=== PATIENT | female | born 1935 | race Hispanic/Latino ===

== ENCOUNTER 2020-07-24 06:38 | Emergency (ER) | payer OTHER ==
[2020-07-24] MEDS ORDERED: ONDANSETRON 4 MG/2 ML VIAL ONE (08:58)
[2020-07-24] MEDS ORDERED: NA CHLORIDE 0.9% 1,000 ML ONE (08:58)
[2020-07-24] MEDS ORDERED: MORPHINE 2 MG/ML SYR ONE ×2 (08:58→11:04)
--- NOTE | 2020-07-24 09:20 | RAD REPORT ---
EXAM DESCRIPTION: RAD - Chest Single View - 07/24/2020 9:00 am CLINICAL HISTORY: ABDOMINAL DISTENTION COMPARISON: Portable June 2014 TECHNIQUE: AP portable chest image was obtained 07/24/2020 9:00 am . FINDINGS: No focal consolidation or mass. Interstitial opacities are present with interstitial cha ngs slightly increased from comparison. Heart and vasculature are normal. No measurable pleural effus ion and no pneumothorax. No acute bony abnormality seen. No acute aortic findings suspected. IMPRESSION: No dense mass or consolidation. Interstitial markings are increased slightly and there is some minimal alveolar opacities present. No COVID exposure history indicated. Viral infiltrate or mild interstitial edema suspected.
[2020-07-24 09:22] LABS: Protime INR 1.14
[2020-07-24 09:23] LABS: Basophils % 0.4 % (0-1.3); Hematocrit 38.6 % (36.0-45.0); Lymphocytes % 8.5 % (15.3-44.8); MPV 9.7 fL (7.6-11.3); RBC Red Blood Cell Count 4.51 M/uL (3.86-4.86)
[2020-07-24 09:34] LABS: ALT/SGPT 13 U/L (12-78); AST/SGOT 13 U/L (15-37); Albumin 3.2 g/dL (3.4-5.0); Alkaline Phosphatase 127 U/L (45-117); BUN Blood Urea Nitrogen 15 mg/dL (7-18); Bicarbonate 28 mmol/L (21-32); Bilirubin Direct 0.2 mg/dL (0-0.2); Bilirubin Total 0.6 mg/dL (0.2-1.0); Glucose Level 177 mg/dL (74-106); Lipase 28 U/L (73-393); Magnesium 1.9 mg/dL (1.8-2.4); NT PRO-BNP 214 pg/mL (<450); Potassium 3.5 mmol/L (3.5-5.1); Protein, Total 7.6 g/dL (6.4-8.2); Sodium Level 141 mmol/L (136-145); Troponin (Emerg Dept Use Only) < 0.02 ng/mL (0.0-0.045)
[2020-07-24 09:50] LABS: Urine Blood 2+ (Negative); Urine Glucose Negative (Negative); Urine Protein 1+ (Negative)
[2020-07-24 09:58] LABS: Blood Morphology Comment NOT SEEN (NOT SEEN); Platelet Estimate ADEQ
--- NOTE | 2020-07-24 11:49 | RAD REPORT ---
EXAM DESCRIPTION: CT - Abdomen Pelvis W Contrast - 07/24/2020 11:29 am CLINICAL HISTORY: Abd pain;Abdominal distention COMPARISON: No comparisons TECHNIQUE: Biphasic, helical CT imaging of the abdomen and pelvis was performed following 100 ml non -ionic IV contrast. Oral contrast was given. All CT scans are performed using dose optimization technique as appropriate and may include automated exposure control or mA/KV adjustment according to patient size. FINDINGS: No suspicious findings in the lung bases. No focal liver lesion. Doppler evaluation shows no portal vein abnormality. Nodular liver capsule con tour seen. No splenomegaly or focal splenic finding. Pancreatic atrophy is present with no acute panc reatic process. Gallbladder and biliary tree are also without suspicious finding. Gallstones can be o ccult on CT imaging. Calcified splenic artery aneurysm present. Symmetric renal function is seen with no hydronephrosis or suspicious renal mass. No pyelonephritis o r acute parenchymal process. Urinary bladder is fully contracted around a Thomas catheter. No adrenal abnormalities. No gastric dilatation or wall thickening. Gastric outlet obstruction not suspected. Small bowel loops are not dilated. No direct or indirect evidence for appendicitis. Mild to moderate circumferential w all thickening of the colon present from cecum to the sigmoid colon which passes through the abdomina l wall as a left mid abdomen colostomy. The rectosigmoid Prado pouch shows contrast material presum ably from a far remote procedure. No free air or pneumatosis. No hernia, mass or bulky lymphadenopat hy. No suspicious bony findings. IMPRESSION: Mild to moderate colitis pattern with no free air, pneumatosis or emergent finding. Nodular contour to the liver could indicate cirrhosis or diffuse hepatic parenchymal disease. No foca l liver parenchymal finding. The left abdomen colostomy site shows the colitis pattern seen elsewhere in the colon. No emergent fi nding at this site.
--- NOTE | 2020-07-24 12:12 | ER ---
Nurse's Notes [facility] Name: Valerie Cantrell Age: 84 yrs Sex: Female : 1935 Arrival Date: 07/24/2020 Time: 06:41 Bed 15 Private MD: Diagnosis: Abdominal tenderness;Other and unspecified noninfective gastroenteritis and colitis;Colostomy status Presentation: 07/24 06:55 Chief complaint: EMS states: complaining of abdominal pain started last Saturday, has a rr5 colostomy which was placed last november. 06:55 Coronavirus screen: Client denies travel out of the [place] in the last 14 days. At this rr5 time, the client does not indicate any symptoms associated with coronavirus-19. Ebola Screen: Patient negative for fever greater than or equal to 101.5 degrees Fahrenheit, and additional compatible Ebola Virus Disease symptoms Patient denies exposure to infectious person. Patient denies travel to an Ebola-affected area in the 21 days before illness onset. Initial Sepsis Screen: Does the patient meet any 2 criteria? No. Patient's initial sepsis screen is negative. Does the patient have a suspected source of infection? No. Patient's initial sepsis screen is negative. Risk Assessment: Do you want to hurt yourself or someone else? Patient reports no desire to harm self or others. Onset of symptoms was July 22, 2020. 06:55 Method Of Arrival: EMS: [facility] rr5 06:55 Acuity: HAI 3 rr5 Historical: - Allergies: 07:00 No Known Allergies; rr5 - PMHx: 07:00 Thyroid problem; Hypertension; neuropathy; stroke; rr5 - PSHx: 07:00 Colostomy; rr5 - Immunization history:: Adult Immunizations up to date. - Social history:: Smoking status: unknown. - Family history:: not pertinent. Screenin:00 Abuse screen: Denies threats or abuse. Denies injuries from another. Nutritional rr5 screening: No deficits noted. Tuberculosis screening: No symptoms or risk factors identified. Fall Risk Secondary diagnosis (15 points) impaired mobility, Gait- Impaired (20 pts.). Total [place] Fall Scale indicates High Risk Score (45 or more points). Fall prevention measures have been instituted. Side Rails Up X 2 Placed Close to Nursing Station Frequent Obs/Assessments Occuring As available patient and family educated on Fall Prevention Program and Strategies. Assessment: 07:10 General: Appears in no apparent distress. Behavior is calm, cooperative, appropriate ll1 for age. Pain: Complains of pain in abdomen Quality of pain is described as aching, crampy. Neuro: No deficits noted. Cardiovascular: No deficits noted. Respiratory: No deficits noted. GI: Abdomen is flat, Colostomy site is clean and dry. Ostomy appliance is intact. Bowel sounds present X 4 quads. Abd is soft Abdomen is tender to palpation X 4 quads. Reports lower abdominal pain, upper abdominal pain, gaseousness, nausea, vomiting. : catheter present. 08:10 Reassessment: No changes from previously documented assessment. Patient and/or family ll1 updated on plan of care and expected duration. Pain level reassessed. 09:10 Reassessment: No changes from previously documented assessment. Patient and/or family ll1 updated on plan of care and expected duration. Pain level reassessed. Patient is alert, oriented x 3, equal unlabored respirations, skin warm/dry/pink. Patient states feeling better. 10:10 Reassessment: Patient appears in no apparent distress at this time. Patient and/or ca1 family updated on plan of care and expected duration. Pain level reassessed. Patient is alert, oriented x 3, equal unlabored respirations, skin warm/dry/pink. 10:53 Reassessment: Patient appears in no apparent distress at this time. Patient and/or ca1 family updated on plan of care and expected duration. Pain level reassessed. Patient is alert, oriented x 3, equal unlabored respirations, skin warm/dry/pink. Lab at bedside for Blood Culture draw. 12:01 Reassessment: Patient appears in no apparent distress at this time. Patient and/or ca1 family updated on plan of care and expected duration. Pain level reassessed. Patient is alert, oriented x 3, equal unlabored respirations, skin warm/dry/pink. 12:12 Reassessment: Discharge pending completion of Antibiotics. ca1 12:49 Reassessment: Patient appears in no apparent distress at this time. Patient is alert, ca1 oriented x 3, equal unlabored respirations, skin warm/dry/pink. 13:55 Reassessment: Patient appears in no apparent distress at this time. Patient is alert, ca1 oriented x 3, equal unlabored respirations, skin warm/dry/pink. Awaiting transport. 14:34 Reassessment: Patient appears in no apparent distress at this time. Patient is alert, ca1 oriented x 3, equal unlabored respirations, skin warm/dry/pink. Patient states feeling better. Vital Signs: 06:55 BP 152 / 115; Pulse 88; Resp 19; Temp 98.4; Pulse Ox 96% ; Weight 72.57 kg; Height 5 rr5 ft. 5 in. (165.10 cm); Pain 8/10; 10:01 BP 124 / 67; Pulse 79; Resp 17; Pulse Ox 97% on R/A; ll1 10:30 BP 100 / 86; Pulse 75; Resp 16 S; Pulse Ox 95% on R/A; ca1 10:52 Pulse 79; Pulse Ox 96% on R/A; mb4 11:05 BP 126 / 66; Pulse 75; Resp 16 S; Pulse Ox 97% on R/A; ca1 12:00 BP 100 / 51; Pulse 78; Resp 18 S; Pulse Ox 98% on R/A; ca1 13:00 BP 90 / 70; Pulse 82; Resp 13 S; Pulse Ox 98% on R/A; ca1 14:00 BP 109 / 60; Pulse 71; Resp 15 S; Pulse Ox 95% on R/A; ca1 06:55 Body Mass Index 26.63 (72.57 kg, 165.10 cm) rr5 ED Course: 06:41 Patient arrived in ED. iw 06:44 James Jo MD is Attending Physician. pablito 06:59 Triage completed. rr5 07:00 Arm band placed on right wrist. rr5 07:00 Patient has correct armband on for positive identification. Bed in low position. Call ll1 light in reach. Side rails up X 1. Pulse ox on. NIBP on. 07:18 Bassam Connor, KELSI is Primary Nurse. ll1 08:52 EKG done, by ED staff, reviewed by James Jo MD. mb4 09:00 XRAY Chest (1 view) In Process Unspecified. EDMS 09:00 Inserted saline lock: 22 gauge in right antecubital area, using aseptic technique. ll1 Blood collected. 10:34 COVID swab sent to lab. ca1 11:07 First set of blood cultures drawn by lab staff. ca1 11:29 CT Abd/Pelvis - PO and IV Contrast In Process Unspecified. EDMS 12:00 Second set of blood cultures drawn by lab staff. ca1 12:01 Primary Nurse role handed off by Bassam Connor, KELSI ca1 12:01 Alexus Diamond, KELSI is Primary Nurse. ca1 12:11 Geoff Lundberg MD is Referral Physician. pablito 12:35 Stool Culture Sent. ca1 13:50 Stool Culture Sent. ca1 14:34 No provider procedures requiring assistance completed. IV discontinued, intact, ca1 bleeding controlled, No redness/swelling at site. Pressure dressing applied. Administered Medications: 09:31 Drug: NS 0.9% 1000 ml Route: IV; Rate: 1 bolus; Site: right antecubital; ll1 11:00 Follow up: Response: No adverse reaction; IV Status: Completed infusion; IV Intake: ca1 1000ml 09:31 Drug: Zofran (Ondansetron) 4 mg Route: IVP; Site: right antecubital; ll1 10:30 Follow up: Response: No adverse reaction; Nausea is decreased ca1 09:31 Drug: morphine 2 mg Route: IVP; Site: right antecubital; ll1 10:49 Drug: morphine 2 mg {Note: rass 1.} Route: IVP; Site: right antecubital; ca1 12:00 Follow up: Response: No adverse reaction; Pain is decreased; RASS: Alert and Calm (0) ca1 13:12 Follow up: Response: No adverse reaction; Pain is decreased; RASS: Alert and Calm (0) ca1 12:08 Drug: levofloxacin 500 mg Volume: 100 ml; Route: IVPB; Infused Over: 60 mins; Site: ca1 right antecubital; 13:10 Follow up: Response: No adverse reaction; IV Status: Completed infusion; IV Intake: ca1 100ml 13:11 Drug: Pepcid (famotidine) 20 mg Route: IVP; Site: right antecubital; ca1 13:49 Follow up: Response: No adverse reaction ca1 13:13 Drug: Flagyl (metroNIDAZOLE) 500 mg Volume: 100 ml; Route: IVPB; Rate: 200 ml/hr; ca1 Infused Over: 30 mins; Site: right antecubital; 13:49 Follow up: Response: No adverse reaction; IV Status: Completed infusion; IV Intake: ca1 100ml Intake: 11:00 IV: 1000ml; Total: 1000ml. ca1 13:10 IV: 100ml; Total: 1100ml. ca1 13:49 IV: 100ml; Total: 1200ml. ca1 Outcome: 12:12 Discharge ordered by . pablito 14:34 Discharged to home via ambulance. ca1 14:34 Condition: stable 14:34 Discharge instructions given to patient, EMS, Instructed on discharge instructions, follow up and referral plans. medication usage, Demonstrated understanding of instructions, follow-up care, medications, Prescriptions given X x5 14:35 Patient left the ED. ca1 Addendum: 07/28/2020 09:06 Addendum: Culture Results: Positive urine culture. No further action required. Bacteria s s sensitive to prescribed antibiotic. Signatures: Dispatcher [employer] EDMS James Jo MD MD cha Williams, Irene, RN RN iw Berenice Garay RN RN ss Maria Victoria Vital mb4 Win Daily RN RN rr5 Alexus Diamond RN RN ca1 Bassam Connor RN RN ll1 Corrections: (The following items were deleted from the chart) 07/24 10:28 10:27 General: Appears in no apparent distress. Behavior is calm, cooperative, ll1 appropriate for age, ll1 10:28 10:27 Pain: Complains of pain in abdomen Quality of pain is described as aching, ll1 crampy, ll1 10:28 10:27 Neuro: No deficits noted. ll1 ll1 10:28 10:27 Cardiovascular: No deficits noted. ll1 ll1 10:28 10:27 Respiratory: No deficits noted. ll1 ll1 10:28 10:27 GI: Abdomen is flat, Colostomy site is clean and dry. Ostomy appliance is intact. ll1 Bowel sounds present X 4 quads. Abd is soft Abdomen is tender to palpation X 4 quads. Reports lower abdominal pain, upper abdominal pain, gaseousness, nausea, vomiting, ll1 10:28 10:27 : catheter present. ll1 ll1 10:56 10:53 BP 100 / 86; Pulse 75bpm; Resp 16bpm; Spontaneous; Pulse Ox 95% RA; ca1 ca1 14:07 13:49 Response: No adverse reaction ca1 ca1
--- NOTE | 2020-07-24 12:13 | EDPHYS ---
Physician Documentation [facility] Name: Valerie Cantrell Age: 84 yrs Sex: Female : 1935 Arrival Date: 07/24/2020 Time: 06:41 Bed 15 Private MD: ED Physician James Jo HPI: 07/24 10:25 This 84 yrs old Female presents to ER via EMS with complaints of Abdominal pablito Pain. 10:25 The patient presents with abdominal pain in the upper abdomen, in the lower abdomen, pablito abdominal distention in the upper abdomen, in the lower abdomen. Onset: The symptoms/episode began/occurred 2 day(s) ago. The symptoms do not radiate. Associated signs and symptoms: Pertinent positives: nausea. The symptoms are described as constant, crampy. Modifying factors: The symptoms are alleviated by nothing, the symptoms are aggravated by nothing. Severity of pain: At its worst the pain was mild in the emergency department the pain is unchanged. The patient has not experienced similar symptoms in the past. Historical: - Allergies: 07:00 No Known Allergies; rr5 - PMHx: 07:00 Thyroid problem; Hypertension; neuropathy; stroke; rr5 - PSHx: 07:00 Colostomy; rr5 - Immunization history:: Adult Immunizations up to date. - Social history:: Smoking status: unknown. - Family history:: not pertinent. ROS: 10:25 Constitutional: Negative for fever, chills, and weight loss, Eyes: Negative for injury, pablito pain, redness, and discharge, ENT: Negative for injury, pain, and discharge, Neck: Negative for injury, pain, and swelling, Cardiovascular: Negative for chest pain, palpitations, and edema, Respiratory: Negative for shortness of breath, cough, wheezing, and pleuritic chest pain, Back: Negative for injury and pain, : Negative for injury, bleeding, discharge, and swelling, MS/Extremity: Negative for injury and deformity, Skin: Negative for injury, rash, and discoloration, Neuro: Negative for headache, weakness, numbness, tingling, and seizure, Psych: Negative for depression, anxiety, suicide ideation, homicidal ideation, and hallucinations, Allergy/Immunology: Negative for hives, rash, and allergies, Endocrine: Negative for neck swelling, polydipsia, polyuria, polyphagia, and marked weight changes, Hematologic/Lymphatic: Negative for swollen nodes, abnormal bleeding, and unusual bruising. 10:25 Abdomen/GI: Positive for abdominal pain, of the right upper quadrant, left upper quadrant, right lower quadrant and left lower quadrant, COLOSTOMY LOOKS CLEAN AND WELL KEPT. Exam: 10:28 Constitutional: This is a well developed, well nourished patient who is awake, alert, pablito and in no acute distress. Head/Face: Normocephalic, atraumatic. Eyes: Pupils equal round and reactive to light, extra-ocular motions intact. Lids and lashes normal. Conjunctiva and sclera are non-icteric and not injected. Cornea within normal limits. Periorbital areas with no swelling, redness, or edema. ENT: Nares patent. No nasal discharge, no septal abnormalities noted. Tympanic membranes are normal and external auditory canals are clear. Oropharynx with no redness, swelling, or masses, exudates, or evidence of obstruction, uvula midline. Mucous membranes moist. Neck: Trachea midline, no thyromegaly or masses palpated, and no cervical lymphadenopathy. Supple, full range of motion without nuchal rigidity, or vertebral point tenderness. No Meningismus. Chest/axilla: Normal chest wall appearance and motion. Nontender with no deformity. No lesions are appreciated. Cardiovascular: Regular rate and rhythm with a normal S1 and S2. No gallops, murmurs, or rubs. Normal PMI, no JVD. No pulse deficits. Respiratory: Lungs have equal breath sounds bilaterally, clear to auscultation and percussion. No rales, rhonchi or wheezes noted. No increased work of breathing, no retractions or nasal flaring. Back: No spinal tenderness. No costovertebral tenderness. Full range of motion. Female : Normal external genitalia. Skin: Warm, dry with normal turgor. Normal color with no rashes, no lesions, and no evidence of cellulitis. MS/ Extremity: Pulses equal, no cyanosis. Neurovascular intact. Full, normal range of motion. Neuro: Awake and alert, GCS 15, oriented to person, place, time, and situation. Cranial nerves II-XII grossly intact. Motor strength 5/5 in all extremities. Sensory grossly intact. Cerebellar exam normal. Normal gait. Psych: Awake, alert, with orientation to person, place and time. Behavior, mood, and affect are within normal limits. 10:28 Abdomen/GI: Inspection: distension, that is mild, Bowel sounds: normal, Palpation: mild abdominal tenderness, in all quadrants, Liver: no appreciated palpable abnormalities, Hernia: not appreciated. 10:31 ECG was reviewed by the Attending Physician. [facility] Vital Signs: 06:55 BP 152 / 115; Pulse 88; Resp 19; Temp 98.4; Pulse Ox 96% ; Weight 72.57 kg; Height 5 rr5 ft. 5 in. (165.10 cm); Pain 8/10; 10:01 BP 124 / 67; Pulse 79; Resp 17; Pulse Ox 97% on R/A; ll1 10:30 BP 100 / 86; Pulse 75; Resp 16 S; Pulse Ox 95% on R/A; ca1 10:52 Pulse 79; Pulse Ox 96% on R/A; mb4 11:05 BP 126 / 66; Pulse 75; Resp 16 S; Pulse Ox 97% on R/A; ca1 12:00 BP 100 / 51; Pulse 78; Resp 18 S; Pulse Ox 98% on R/A; ca1 13:00 BP 90 / 70; Pulse 82; Resp 13 S; Pulse Ox 98% on R/A; ca1 14:00 BP 109 / 60; Pulse 71; Resp 15 S; Pulse Ox 95% on R/A; ca1 06:55 Body Mass Index 26.63 (72.57 kg, 165.10 cm) rr5 MDM: 06:45 Patient medically screened. [facility] 10:28 Differential diagnosis: bowel obstruction, cholecystitis, Cholelithiasis, gastritis, pablito gastroesophageal reflux disease, Mesenteric ischemia or infarction, non-specific abd pain, pancreatitis, Peptic Ulcer Disease, Peritonitis, urinary tract infection. Data reviewed: vital signs, nurses notes, EMS record, lab test result(s), EKG, radiologic studies, CT scan, plain films. Data interpreted: panel monitor: rate is 79 beats/min, rhythm is regular, Pulse oximetry: on room air is 97 %. Test interpretation: by ED physician or midlevel provider: ECG, plain radiologic studies. Counseling: I had a detailed discussion with the patient and/or guardian regarding: the historical points, exam findings, and any diagnostic results supporting the discharge/admit diagnosis, lab results, radiology results. 07/24 08:26 Order name: Basic Metabolic Panel; Complete Time: 10:11 [facility] 07/24 08:26 Order name: CBC with Diff; Complete Time: 10:11 [facility] 07/24 08:26 Order name: LFT's; Complete Time: 10: [facility] 07/24 08:26 Order name: Magnesium; Complete Time: 10: [facility] 07/24 08:26 Order name: NT PRO-BNP; Complete Time: 10:11 [facility] 07/24 08:26 Order name: PT-INR; Complete Time: 10: [facility] 07/24 08:26 Order name: Troponin (emerg Dept Use Only); Complete Time: 10: [facility] 07/24 08:26 Order name: Lipase; Complete Time: 10: [facility] 07/24 08:26 Order name: Urine Culture [facility] 07/24 09:49 Order name: Urine Dipstick-Ancillary; Complete Time: 10: [facility] 07/24 09:58 Order name: Manual Differential; Complete Time: 10: [facility] 07/24 10:15 Order name: Blood Culture Adult (2) [facility] 07/24 12:07 Order name: SARS-COV-2 RT PCR [facility] 07/24 06:45 Order name: Misc. Order: replace colostomy; Complete Time: 07:19 [facility] 07/24 08:26 Order name: XRAY Chest (1 view); Complete Time: 10:11 [facility] 07/24 08:26 Order name: EKG; Complete Time: 08:27 [facility] 07/24 08:26 Order name: Cardiac monitoring; Complete Time: 09:59 [facility] 07/24 08:26 Order name: EKG - Nurse/Tech; Complete Time: 09:59 [facility] 07/24 08:26 Order name: IV Saline Lock; Complete Time: 08:35 [facility] 07/24 08:26 Order name: Labs collected and sent; Complete Time: 08:35 [facility] 07/24 08:26 Order name: O2 Per Protocol; Complete Time: 08:35 [facility] 07/24 08:26 Order name: CT Abd/Pelvis - PO and IV Contrast; Complete Time: 12:03 [facility] 07/24 12:13 Order name: Stool Culture 07/24 08:26 Order name: O2 Sat Monitoring; Complete Time: 08:34 [facility] 07/24 08:26 Order name: Urine Dipstick-Ancillary (obtain specimen); Complete Time: 09:59 pablito EC:31 Rate is 75 beats/min. Rhythm is regular. QRS [place] is Normal. IN interval is normal. QRS pablito interval is normal. QT interval is normal. No Q waves. T waves are Normal. No ST changes noted. Clinical impression: NSR w/ Non-specific ST/T Changes and No evidence of ischemia. Interpreted by me. Reviewed by me. Administered Medications: :31 Drug: NS 0.9% 1000 ml Route: IV; Rate: 1 bolus; Site: right antecubital; ll1 11:00 Follow up: Response: No adverse reaction; IV Status: Completed infusion; IV Intake: ca1 1000ml 09:31 Drug: Zofran (Ondansetron) 4 mg Route: IVP; Site: right antecubital; ll1 10:30 Follow up: Response: No adverse reaction; Nausea is decreased ca1 09:31 Drug: morphine 2 mg Route: IVP; Site: right antecubital; ll1 10:49 Drug: morphine 2 mg {Note: rass 1.} Route: IVP; Site: right antecubital; ca1 12:00 Follow up: Response: No adverse reaction; Pain is decreased; RASS: Alert and Calm (0) ca1 13:12 Follow up: Response: No adverse reaction; Pain is decreased; RASS: Alert and Calm (0) ca1 12:08 Drug: levofloxacin 500 mg Volume: 100 ml; Route: IVPB; Infused Over: 60 mins; Site: ca1 right antecubital; 13:10 Follow up: Response: No adverse reaction; IV Status: Completed infusion; IV Intake: ca1 100ml 13:11 Drug: Pepcid (famotidine) 20 mg Route: IVP; Site: right antecubital; ca1 13:49 Follow up: Response: No adverse reaction ca1 13:13 Drug: Flagyl (metroNIDAZOLE) 500 mg Volume: 100 ml; Route: IVPB; Rate: 200 ml/hr; ca1 Infused Over: 30 mins; Site: right antecubital; 13:49 Follow up: Response: No adverse reaction; IV Status: Completed infusion; IV Intake: ca1 100ml Disposition: 07/24/20 12:12 Discharged to Home. Impression: Abdominal tenderness, Other and unspecified noninfective gastroenteritis and colitis, Colostomy status. - Condition is Stable. - Discharge Instructions: Abdominal Pain, Adult, Abdominal Pain, Adult, [id number], Colostomy, Adult, Care After, Colitis. - Prescriptions for Bentyl 20 mg Oral Tablet - take 1 tablet by ORAL route every 6 hours As needed; 20 tablet. Flagyl 500 mg Oral Tablet - take 1 tablet by ORAL route every 8 hours for 7 days; 21 tablet. Levaquin 250 mg Oral Tablet - take 1 tablet by ORAL route once daily for 7 days; 7 tablet. Pepcid 20 mg Oral Tablet - take 1 tablet by ORAL route every 12 hours for 10 days; 20 tablet. Zofran 4 mg Oral Tablet - take 1 tablet by ORAL route every 12 hours As needed; 14 tablet. - Medication Reconciliation Form, Thank You Letter, Antibiotic Education, Prescription Opioid Use, SBAR form form. - Follow up: Private Physician; When: 2 - 3 days; Reason: Recheck today's complaints, Continuance of care, Re-evaluation by your physician. Follow up: Geoff Lundberg MD; When: 2 - 3 days; Reason: Recheck today's complaints, Re-evaluation by your physician. - Problem is new. - Symptoms have improved. Signatures: Dispatcher [employer] [facility] James Jo MD MD cha Roque, Raymond RN RN rr5 Alexus Diamond RN RN ca1 Bassam Connor RN RN ll1 Corrections: (The following items were deleted from the chart) 11:20 10:15 CORONAVIRUS+ ordered. [facility] 14:35 12:12 07/24/2020 12:12 Discharged to Home. Impression: Abdominal tenderness; Other and ca1 unspecified noninfective gastroenteritis and colitis; Colostomy status. Condition is Stable. Forms are Medication Reconciliation Form, Thank You Letter, Antibiotic Education, Prescription Opioid Use. Follow up: Private Physician; When: 2 - 3 days; Reason: Recheck today's complaints, Continuance of care, Re-evaluation by your physician. Follow up: Geoff Lundberg; When: 2 - 3 days; Reason: Recheck today's complaints, Re-evaluation by your physician. Problem is new. Symptoms have improved. pablito
[2020-07-24] MEDS ORDERED: Levofloxacin500mg IV 500 MG/100 ML BAG IV ONE (12:22)
[2020-07-24] MEDS ORDERED: FAMOTIDINE 20 MG/2 ML VIAL IV ONE (12:32)
[2020-07-24] MEDS ORDERED: METRONIDAZOLE 500mg IVPB 500 MG/100 ML BAG IV ONE (12:32)
[2020-07-24 14:47] VITALS: TEMP 98.4
[2020-07-24 14:57] VITALS: BP 109/60; O2SAT 95
--- NOTE | 2020-07-27 12:07 | EKG ---
Test Date: 2020-07-24 Test Time: 08:49:06 Slope Runner: LAWRENCE MEASUREMENT RESULTS: Intervals: Rate: 75 NJ: 174 QRSD: 138 QT: 408 QTc: 455 [place]: P: 40 NJ: 174 QRS: 49 T: 2 INTERPRETIVE STATEMENTS: Normal sinus rhythm Right bundle branch block Possible Inferior infarct, age undetermined Abnormal ECG Compared to ECG 07/20/2014 01:31:00 No significant changes Electronically Signed On 07-27-20 11:55:18 CDT by Naveen Ventura
== END 2020-07-24 14:35 | disposition home or self-care (01) ==
LOC: ER 06:38
DX: K52.9 Noninfective gastroenteritis and colitis, unspecified (principal); Z93.3 Colostomy status; I10 Essential (primary) hypertension; Z20.822 Contact with and (suspected) exposure to COVID-19
CPT/HCPCS: 96365; 96367; 96361; 93005; 87040 ×2; 87088; 87045; 85025; 87086; 80048; 36415; 83735; 85610; 80076; 87046; 81003; 84484; 83690; 83880; 74177; 71045; 96375; 99284; U0003; Q9967; J2270 ×2; J7030; J2405; 87077; 87186

== ENCOUNTER 2024-02-19 10:50 | Emergency (ER) | payer OTHER ==
[2024-02-19 11:37] LABS: Absolute Eosinophils 0.2 K/uL (0-0.5); Absolute Lymphocytes (CBC) 0.9 K/uL (0.7-4.9); Absolute Monocytes 0.1 K/uL (0.1-1.3); Absolute Neutrophil 2.1 K/uL (1.8-8.0); Eosinophils % 4.8 % (0-4.4); Hematocrit 36.5 % (36.0-45.0); Hemoglobin 12.3 g/dL (12.0-15.0); Lymphocytes % 28.4 % (15.3-44.8); MCH 30.9 pg (27.0-35.0); MCHC 33.6 g/dL (32.0-36.0); MCV 92.1 fL (80-100); MPV 9.3 fL (7.6-11.3); Monocytes % 3.9 % (3.3-12.3); Neutrophils % 61.9 % (41.7-73.7); Platelets 101 thou/uL (152-406); RBC Red Blood Cell Count 3.96 M/uL (3.86-4.86); Red Cell Distribution Width 15.5 % (12.1-15.2)
[2024-02-19 11:46] LABS: Anion Gap 7.5 mEq/L (5.0-15.0); Potassium 4.5 mEq/L (3.5-5.1)
--- NOTE | 2024-02-19 14:28 | EDPHYS ---
Physician Documentation [facility] Name: Valerie Cantrell Age: 88 yrs Sex: Female : 1935 Arrival Date: 02/19/2024 Time: 10:50 Bed 6 Private MD: ED Physician Jacob Howell HPI: 02/18 11:10 This 88 yrs old Female presents to ER via Wheelchair with complaints of Bed ec2 sores on Buttocks. 11:10 Patient arrives today for evaluation due to concern for social issues. Adult daughter ec2 and son had picked up patient from currently the situation, was found to be disheveled with sores on the buttocks and otherwise fairly unkempt. Patient has complaints of buttock pain from her sores.. Historical: - PMHx: 11:03 Hypertension; neuropathy; stroke; Thyroid problem; iw - Immunization history:: Adult Immunizations unknown. - Infectious Disease History:: Denies. - Social history:: Smoking status: Patient reports the use of cigarette tobacco products. ROS: 11:10 Constitutional: as per hpi ec2 Exam: 11:10 Constitutional: GEN: NAD Head: atraumatic Eyes: EOMI Ears: External ears are ec2 normal. CV: regular rate LUNGS: no respiratory distress ABD: non-distended SKIN: Large sacral wound on the buttock region, 1 in the cleft approximately stage I, 1 in the right buttock region, approximately stage II. No discharge or drainage appreciated. MSK: no evidence of trauma Vital Signs: 11:01 BP 157 / 74; Pulse 64; Resp 16; Temp 97.7; Pulse Ox 100% on R/A; iw 11:52 BP 137 / 61; Pulse 51; Resp 18; Pulse Ox 100% on R/A; ph 13:07 BP 121 / 64; Pulse 63; Resp 18; Pulse Ox 100% on R/A; ph 15:46 BP 118 / 68; Pulse 58; Resp 18; Temp 97.9; Pulse Ox 98% on R/A; ph MDM: 10:53 Medical Screening Exam initiated ec2 11:10 Data reviewed: vital signs, nurses notes. ED course: Patient arrives today for ec2 evaluation due to social concerns and buttock wounds. Examination is unrevealing revealing for buttock wounds as above. Will obtain basic lab work to evaluate for electrolyte disturbances or kidney abnormalities. Likely admit for social concerns and placement.. 12:24 ED course: Discussed with roving department supervisor to see if we have capability to admit to inpatient ec2 rehab at this time with goals of placing for rehab.. 13:26 ED course: Pending possible inpatient rehab admission. Will have therapist to evaluate ec2 patient.. 14:27 ED course: Patient was evaluated, will send to inpatient rehab and will discharge from ec2 the emergency department.. 19:48 ED course: CBC shows slight leukopenia, metabolic profile shows renal dysfunction with ec2 creatinine 1.42 and GFR of 36.. 02/18 11:07 Order name: CBC with Diff; Complete Time: 11:45 ec2 02/18 11:07 Order name: BMP; Complete Time: 11:56 ec2 02/18 11:07 Order name: IV; Complete Time: 11:49 ec2 Administered Medications: No medications were administered Disposition Summary: 02/19/24 14:28 Discharge Ordered Notes: Location: Home ec2 Condition: Stable ec2 Diagnosis - Stage 1 Decubitus Ulcer, Stage 2 Decubitus Ulcer, Kidney Injury ec2 Followup: ec2 - With: Private Physician - When: - Reason: Re-evaluation by your physician Discharge Instructions: - Discharge Summary Sheet ss Forms: - SBAR form ss - Medication Reconciliation Form ec2 - Antibiotic Education ec2 - Prescription Opioid Use ec2 - Patient Portal Instructions ec2 - Leadership Thank You Letter ec2 Signatures: Dispatcher [employer] Fátima Jean RN RN iw Hall, Patricia, RN RN ph Corral, Edwin, MD MD ec2
--- NOTE | 2024-02-19 14:28 | ER ---
Nurse's Notes [facility] Name: Valerie Cantrell Age: 88 yrs Sex: Female : 1935 Arrival Date: 02/19/2024 Time: 10:50 Bed 6 Private MD: Diagnosis: Stage 1 Decubitus Ulcer, Stage 2 Decubitus Ulcer, Kidney Injury Presentation: 02/18 11:01 Chief complaint: Patient states: bed sores on buttocks X 2 years , pain in legs. iw Coronavirus screen: At this time, the client does not indicate any symptoms associated with coronavirus-19. Ebola Screen: No symptoms or risks identified at this time. Initial Sepsis Screen: Does the patient meet any 2 criteria? No. Patient's initial sepsis screen is negative. Does the patient have a suspected source of infection?. Risk Assessment: Do you want to hurt yourself or someone else? Patient reports no desire to harm self or others. 11:01 Method Of Arrival: Wheelchair iw 11:01 Acuity: HAI 3 iw 11:51 Onset of symptoms was February 19, 2024. ph Historical: - PMHx: 11:03 Hypertension; neuropathy; stroke; Thyroid problem; iw - Immunization history:: Adult Immunizations unknown. - Infectious Disease History:: Denies. - Social history:: Smoking status: Patient reports the use of cigarette tobacco products. Screenin:07 [facility] ED Fall Risk Assessment (Adult) History of falling in the last 3 months, ph including since admission No falls in past 3 months (0 pts) Confusion or Disorientation No (0 pts) Intoxicated or Sedated No (0 pts) Impaired Gait Yes (1 pt) Mobility Assist Device Used Yes (1 pt) Altered Elimination Yes (1 pt) Score/Fall Risk Level 3 or more points = High Risk Oriented to surroundings, Maintained a safe environment, Hourly rounding (assess needs \T\ fall precautionary measures) done, Used ambulatory aids as needed (educated on \T\ assisted with). 11:50 Abuse screen: Denies threats or abuse. Denies injuries from another. Nutritional ph screening: No deficits noted. Tuberculosis screening: No symptoms or risk factors identified. Assessment: 11:50 General: Appears in no apparent distress. comfortable, Behavior is calm, cooperative, ph appropriate for age. Pain: Complains of pain in buttocks. Neuro: Level of Consciousness is awake, alert, obeys commands, Oriented to person, place, time, situation. Cardiovascular: Capillary refill < 3 seconds in bilateral fingers Patient's skin is warm and dry. Respiratory: Airway is patent Respiratory effort is even, unlabored, Respiratory pattern is regular, symmetrical. Derm: Skin is pink, warm \T\ dry. Decubitus located on sacrum approximately 2.6 cm to 7.5 cm is stage II no drainage. Derm: Decubitus located on sacrum approximately 1.5 cm to 2.5 cm is stage I. 13:07 Reassessment: Patient appears in no apparent distress at this time. Patient and/or ph family updated on plan of care and expected duration. Pain level reassessed. Patient is alert, oriented x 3, equal unlabored respirations, skin warm/dry/pink. 14:00 Reassessment: Family at bedside w/ food for pt, pt to be d/c from ED and admitted to inpatient rehab. Vital Signs: 11:01 BP 157 / 74; Pulse 64; Resp 16; Temp 97.7; Pulse Ox 100% on R/A; iw 11:52 BP 137 / 61; Pulse 51; Resp 18; Pulse Ox 100% on R/A; ph 13:07 BP 121 / 64; Pulse 63; Resp 18; Pulse Ox 100% on R/A; ph 15:46 BP 118 / 68; Pulse 58; Resp 18; Temp 97.9; Pulse Ox 98% on R/A; ph ED Course: 10:51 Patient arrived in ED. ra3 10:52 Jacob Howell MD is Attending Physician. ec2 11:03 Triage completed. iw 11:08 Arm band placed on Patient placed in an exam room, on a stretcher, on pulse oximetry. ph 11:08 Patient has correct armband on for positive identification. Call light in reach. Side ph rails up X2. Pulse ox on. NIBP on. Door closed. Noise minimized. Warm blanket given. Pillow given. 11:28 Initial lab(s) drawn, by me, sent to lab. Inserted saline lock: 22 gauge in left tm3 antecubital area, using aseptic technique. 11:49 Mariana Linn RN is Primary Nurse. ph 11:52 No provider procedures requiring assistance completed. ph 15:45 IV discontinued, intact, bleeding controlled, No redness/swelling at site. Pressure ph dressing applied. 17:36 Provided Education on: transfer to 5th floor. ko1 17:39 Report given to KELSI Harrell. ko1 Administered Medications: No medications were administered Medication: 11:08 VIS not applicable for this client. ph Outcome: 14:28 Discharge ordered by . dilip 16:00 Discharged to Rehab Facility ph 16:00 Condition: good 16:00 Discharge instructions given to patient, family, Instructed on discharge instructions, follow up and referral plans. Demonstrated understanding of instructions, follow-up care, 16:00 Patient left the ED. ph Signatures: Tal Nixon tm3 Fátima Chu, KELSI RN Mariana Linn RN RN Jennifer Miller RN RN ko1 Jacob Howell MD MD ec2 Alva, Ruby ra3
[2024-02-19 16:27] VITALS: BP 118/68; TEMP 97.9; O2SAT 98
== END 2024-02-19 16:00 | disposition home or self-care (01) ==
LOC: ER 10:50
DX: L89.312 Pressure ulcer of right buttock, stage 2 (principal); L89.151 Pressure ulcer of sacral region, stage 1; N17.9 Acute kidney failure, unspecified
CPT/HCPCS: 36415; 80048; 85025; 99284

== ENCOUNTER 2024-02-19 17:26 | Inpatient (IN) | payer OTHER ==
[2024-02-19] MEDS: AMLODIPINE 5 MG TAB PO SCH (21:54)
[2024-02-19 21:56] VITALS: BMI 22.8
[2024-02-20 00:01] LABS: Sqamous Epithelial <5 /HPF (None Seen); Urine Bacteria 20-50 /HPF (<20); Urine Bilirubin NEGATIVE (Negative); Urine Blood 1+ (Negative); Urine Clarity Extremely Turbid (Clear); Urine Color Light-Yellow (Yellow); Urine Crystals Unidentified Few /HPF (None Seen); Urine Culture Reflex Order REFLEXED; Urine Glucose NEGATIVE (Negative); Urine Ketones NEGATIVE (Negative); Urine Micro Reflex YN NO BILL MICROSCOPIC; Urine Nitrite 1+ (Negative); Urine Protein TRACE (Negative); Urine Urobilinogen Normal (Normal); Urine WBC >50 /HPF (<5); Urine WBC Clump Few /HPF (None Seen); Urine Yeast (Budding) Few /HPF (None Seen)
[2024-02-20] MEDS: IBUPROFEN 600 MG TAB PO PRN (03:35)
[2024-02-20 06:22] LABS: Absolute Eosinophils 0.2 K/uL (0-0.5); Absolute Lymphocytes (CBC) 1.1 K/uL (0.7-4.9); Absolute Monocytes 0.2 K/uL (0.1-1.3); Absolute Neutrophil 1.9 K/uL (1.8-8.0); Basophils % 0.8 % (0-1.3); Eosinophils % 5.7 % (0-4.4); Hematocrit 33.4 % (36.0-45.0); Hemoglobin 11.7 g/dL (12.0-15.0); Lymphocytes % 31.9 % (15.3-44.8); MCH 31.4 pg (27.0-35.0); MCV 89.6 fL (80-100); MPV 9.4 fL (7.6-11.3); Monocytes % 4.8 % (3.3-12.3); Neutrophils % 56.8 % (41.7-73.7); Platelets 112 thou/uL (152-406); RBC Red Blood Cell Count 3.73 M/uL (3.86-4.86); Red Cell Distribution Width 15.5 % (12.1-15.2)
[2024-02-20 06:38] LABS: Albumin 2.6 g/dL (3.4-5.0); Magnesium 1.9 mg/dL (1.6-2.4); Prealbumin 15.4 mg/dL (20-40)
[2024-02-20] MEDS: INSULIN REGULAR (HUMAN) 100 UNIT/ML SQ SCH (07:30)
[2024-02-20] MEDS: LEVOTHYROXINE SOD 0.05 MG TABLET PO SCH (07:33)
[2024-02-20] MEDS: GABAPENTIN 300 MG CAP PO SCH (09:23)
[2024-02-20] MEDS: OXYBUTYNIN ER 5 MG TAB PO SCH (09:23)
[2024-02-20] MEDS ORDERED: NYSTATIN PWDR 100000 UNIT/GM TOP PRN (14:25)
--- NOTE | 2024-02-20 16:54 | RAD REPORT ---
EXAMINATION: CERVICAL SPINE MULTIPLE VIEWS CLINICAL INDICATION: PAIN TECHNIQUE: Multiple views of the cervical spine were obtained. COMPARISON: No prior exam. FINDINGS: Alignment: 4 mm anterolisthesis is seen at C3 on 4. Bones: Mild anterior wedging lower cervical vertebral bodies. Discs: Disc thinning with endplate osteophyte noted at C5-6 and C6-7. Soft Tissue: No soft tissue abnormalities. IMPRESSION: 4 mm anterolisthesis of C3 on 4. MRI cervical spine recommended for follow-up.
[2024-02-20] MEDS ORDERED: LIDOCAINE 4% PATCH ONE (16:58)
[2024-02-20] MEDS: SMZ./TMP. 800/160 MG TABLET PO SCH (17:10)
[2024-02-20] MEDS: LIDOCAINE 4% PATCH TOP SCH (17:11)
[2024-02-20] MEDS: MELATONIN 3 MG TABLET PO PRN (20:59)
--- NOTE | 2024-02-21 04:59 | HP ---
Date of Admission: 02/19/2024 Time Of Service: 2 p.m. Chief Complaint: "I have some sores on my butt. 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 The patient said she has been mostly wheelchair matthias und for over a year after her stroke, much difficulty getting around, but years ago was able to ambul ate with a rolling walker, but currently at least a year has been sitting in a chair and not mobilizi ng much. She was found to have 2 significant decubital ulcers in the sacrum, stage I there, and a ri ght buttock wound stage II, along with uncontrolled diabetes, hypertension, and debility with lack of mobility and physical functioning. She was evaluated by Wound Care and by the inpatient rehabilitat ion service and found that she would be a good candidate for aggressive inpatient rehabilitation with a plan of her being able to go to a long-term care facility once she is more able to transfer safely and wounds have been addressed adequately such that they reduce the risk of systemic infection such as sepsis or osteomyelitis. In addition, she needs comorbid conditions addressed including the renal insufficiency with elevated creatinine and uncontrolled blood sugars. As a result of her evaluation by therapy service and found that she required maximal assistance for transfer from the bed to a pablito ir to a commode on and off, in and out of the shower, and also to perform activities of daily living. She was therefore admitted to the inpatient rehabilitation unit to help reduce the risk of rehospit alization and help her return to the level of functioning and with the goal of her going to a long-te facility. Past Medical History: As noted above. Allergies: NO KNOWN DRUG ALLERGIES. Medications: Norvasc 5 mg daily, gabapentin 900 mg 3 times daily, Motrin 600 mg daily, Synthroid 0.0 5 mg daily, lidocaine patch apply 1 topically daily as needed to the left shoulder where she has been pain for the last several months. Ditropan XL 5 mg daily, Senokot-S 2 at bedtime. Bactrim DS 0.5 mg, she will be receiving daily as prophylaxis against urinary tract infection. Review of Systems: She reports pain in the left shoulder, buttock areas with pain and in the knees bilaterally and some symptoms of depression and diffuse weakness as reported per the patient. Family History: Noncontributory. Laboratory Studies: White blood cell count 3.4, hemoglobin 11.7, platelets 112. Sodium 144, potassi um 4.0, chloride 115, carbon dioxide 24, BUN 12, creatinine 1.12, glucose ranged from 90 to 102. Hem oglobin A1c 4.9, calcium 9.7, magnesium 1.9, albumin 2.6, prealbumin 15.4. Urinalysis is suggestive of urinary tract infection with extreme turbidity, 1+ blood, 1+ nitrite, 500 esterase, 5-10 red blood cells, greater than 50 white blood cells, clumps of white blood cell seen, 20-50 bacteria, few buddi ng yeast, trace total protein. She did have a cervical spine x-ray, 2 views, which is pending. She did report pain in the neck that radiates into the left shoulder and between the left shoulder blade and the vertebral spinous processes consistent with a C5 involvement, perhaps along the long thoracic nerve of Allison and into the deltoid on the left where she has a decreased range of elevation of the l eft arm with good range of motion for the biceps and triceps in the left side. Family History: Noncontributory. Current Level Of Functioning: She requires set up assistance for eating, grooming, moderate assistan ce for bathing, upper and lower body dressing, donning of footwear for toileting, wheelchair transfer , toilet transfer, moderate assistance. Unable to ambulate for over many years. [facility] covered 5 feet, moderate assistance. She is unable to go up and down steps. She does unde rstand and can repeat instructions without cues being required. Physical Examination: Vital Signs: Blood pressure 116/56, pulse 53, respiratory rate 14, temperature 98.3, O2 saturation 9 7%. Weight 137 pounds. Height 5 feet 5 inches. BMI 23.9. General: Mrs. Cantrell is sitting in a chair beside bed. HEENT: She does appear normocephalic, atraumatic. Sclerae anicteric. Oropharynx moist. Neck: Supple. Chest: Clear. Heart: Regular. Neurologic: In terms of the motor examination, the left deltoid, she has decreased range of motion, elevation of the left deltoid. There is pain limiting her and she shifts the body to the r ight to lift the left side up. She has good range of motion in the biceps, at least 4/5 and the tric eps 4/5. There is some pain going down from the neck into the middle of the back on the left paraspi nous side. Her strength in the right side is where the chronic stroke affected her, also 4/5. Knee elevation is about 2-3. Knee extensions 3-4 bilaterally. Plantar dorsiflexion in around 3-4 as well . Stocking-glove loss, depressed reflexes. Rehab And Medical Assessment And Plan: Mrs. Cantrell is an 88-year-old patient admitted to the rehabi litation unit with late effects of stroke affecting the right brain and left body. In addition, she has significant decreased mobility, decreased physical functioning. Impairment group code again left 01.1, left body involvement, and rehab impairment of 01 stroke. Etiologic diagnosis, sequelae of st roke. She also has risk of aspiration, difficulty with risk of falls. She has decubital ulcers and needs control of blood sugars and blood pressure along with urinary tract infection. Needs to be add ressed with her decreased mobility, decreased physical functioning. She has urinary incontinence. S he is on Ditropan. She has constipation. She is on chronic antibiotics, which had to be adjusted ba sed on blood cultures and sensitivity. She has hypothyroidism, on Synthroid and lidocaine patches no w applied to the left shoulder. Her neuropathic pain from diabetes addressed with gabapentin, which is a fairly high dose of a total of 3600, which is a top dose of gabapentin. She has Norvasc 5 mg tw ice daily for blood pressure management. Comorbidities That Are Impacting Rehabilitation: Currently, the decubital ulcers will be evaluated b y the wound care service and dressing changes appropriately will be made whether it be Santyl and Med ihoney and dressing changes along with offloading. She will have a gel cushion and wheelchair as she is sitting. We will work aggressively on offloading the areas to reduce the risk of infection. Hyp othyroidism, not likely to be impacting negatively her therapy. We will continue with the same dosag e of Synthroid. She does have the potential for urinary tract infection, which may be bacteria resis tant to the current antibiotic which she has been on for 2 months, that is the Bactrim, and may have to discontinue that and address the urinary tract infection with other more specific antibiotics. Ot herwise, a plan for her to be able to go home and is to go actually to a long-term facility as she is unable to manage her own affairs at this point and will be highly likely to return to the hospital w ith injury if she is to be discharged home. Rehab Specific Plan: Mrs. Cantrell will have physical, occupational, and speech therapy for 3.5 hours , 5 of 7 days to improve her ability to transfer from bed to a chair to a toilet with a sliding board using upper extremities and lower extremities. Her left arm has decreased range of motion for eleva tion, difficult to reach above her head. She can with the right, which is also the late effects of s troke weak. High risk of falling mitigated by the patient having a gait belt and wheelchai r mobilization and not likely able to go up and down steps. Mrs. Cantrell has a good understanding of the process of admission to the inpatient rehabilitation fac [facility], how she will benefit from physical, occupational, and speech therapy. She will have 24 hours a day, 7 days a week, skilled rehabilitation nursing, daily physician evaluation and management, and social welfare research worker evaluation and manage for discharge planning, home equipment, and for her to follow u p with physicians and continue medications. If need be, additional help will be sought from the hosp italist service. Barriers To Discharge: Mrs. Cantrell has likely an ongoing urinary tract infection. She may end up w ith resistant bacteria requiring IV antibiotics and she may have to go to a long-term facility for re ceiving those antibiotics. However, we will determine if she is able to manage with oral antibiotics based on the culture and sensitivity results. Additional issues of decubital ulcer are present and we will increase protein content in diet, offload, and have Wound Care involved, which would likely b e beyond the time she is even in the rehab unit, but potentially can extend her stay. Code: Full Code. Prognosis: She has fair prognosis overall. Rehab Specific Goals: 1.Mrs. Cantrell will have physical, occupational, and speech therapy again to improve her ability to transfer with modified independence as possible from bed to a chair with a sliding board. Mobilized wheelchair at least household distances. She is not expected to be able to go up and down steps or a mbulate any significant distances. 2.Being able to dress upper body and lower body will likely require some assistance with donning and doffing footwear and lower body dressing and given her limitations of her shoulder on the left. Als o to improve the decubital ulcers to a point where she is healing and has less likely to result in a systemic infection. Mrs. Cantrell has again a good understanding of why she is in the rehabilitation unit and how she will benefit. By signing this document, I acknowledge I personally performed a full physical examination on Mrs. Sa rajput no later than 24 hours after her admission to the inpatient rehabilitation facility and determi minna that she is able to tolerate the above course of treatment at an intensive level for a reasonable period of time. A detailed individualized plan of care for her will be completed by hospital day on the preadmission screen, admission history and physical, and therapy evaluations. DO Voice ID: [id number]
[2024-02-21] MEDS: ENSURE ENLIVE 237 ML CAN PO SCH (08:00)
--- NOTE | 2024-02-21 13:55 | P.RH.PN ---
Estimated Length of Stay: 20 Expected Discharge Date: 03/11/24 Discharge Disposition Plan: Home Family Support: Yes [facility] Goal: Mobility, Transfers, Self Care Vital Signs: Last Vital Signs Temp 98.6 F 02/21/24 07:29 Pulse 55 02/21/24 08:00 Resp 18 02/21/24 07:29 BP 101/45 L 02/21/24 08:00 Pulse Ox 98 02/21/24 07:29 Laboratory: Laboratory Last Values WBC 3.40 thou/uL (4.3-10.9) L 02/20/24 05:36 RBC 3.73 M/uL (3.86-4.86) L 02/20/24 05:36 Hgb 11.7 g/dL (12.0-15.0) L 02/20/24 05:36 Hct 33.4 % (36.0-45.0) L 02/20/24 05:36 MCV 89.6 fL (80-100) 02/20/24 05:36 MCH 31.4 pg (27.0-35.0) 02/20/24 05:36 MCHC 35.0 g/dL (32.0-36.0) 02/20/24 05:36 RDW 15.5 % (12.1-15.2) H 02/20/24 05:36 Plt Count 112 thou/uL (152-406) L 02/20/24 05:36 MPV 9.4 fL (7.6-11.3) 02/20/24 05:36 Neutrophils % 56.8 % (41.7-73.7) 02/20/24 05:36 Lymphocytes % 31.9 % (15.3-44.8) 02/20/24 05:36 Monocytes % 4.8 % (3.3-12.3) 02/20/24 05:36 Eosinophils % 5.7 % (0-4.4) H 02/20/24 05:36 Basophils % 0.8 % (0-1.3) 02/20/24 05:36 Absolute Neutrophils 1.9 K/uL (1.8-8.0) 02/20/24 05:36 Absolute Lymphocytes 1.1 K/uL (0.7-4.9) 02/20/24 05:36 Absolute Monocytes 0.2 K/uL (0.1-1.3) 02/20/24 05:36 Absolute Eosinophils 0.2 K/uL (0-0.5) 02/20/24 05:36 Absolute Basophils 0.0 K/uL (0-0.5) 02/20/24 05:36 Sodium 144 mEq/L (136-145) 02/20/24 05:36 Potassium 4.0 mEq/L (3.5-5.1) 02/20/24 05:36 Chloride 115 mEq/L (98-107) H 02/20/24 05:36 Carbon Dioxide 24 mEq/L (21-32) 02/20/24 05:36 Anion Gap 9.0 mEq/L (5.0-15.0) 02/20/24 05:36 BUN 12 mg/dL (7-18) 02/20/24 05:36 Creatinine 1.12 mg/dL (0.55-1.02) H 02/20/24 05:36 Est GFR (CKD-EPI) 48 ml/min (=/>90) L 02/20/24 05:36 Glucose 102 mg/dL (74-106) 02/20/24 05:36 POC Glucose 165 mg/dL (65-120) H 02/20/24 19:35 Hemoglobin A1c 4.9 % (4.2-6.3) 02/20/24 05:36 Calcium 9.7 mg/dL (8.5-10.1) 02/20/24 05:36 Magnesium 1.9 mg/dL (1.6-2.4) 02/20/24 05:36 Albumin 2.6 g/dL (3.4-5.0) L 02/20/24 05:36 Prealbumin 15.4 mg/dL (20-40) L 02/20/24 05:36 Urine Color Light-yellow (Yellow) 02/19/24 23:05 Urine Clarity Extremely turbid (Clear) H 02/19/24 23:05 Urine pH 7.0 (5.0-7.0) 02/19/24 23:05 Ur Specific [place] 1.010 (1.005-1.030) 02/19/24 23:05 Glucose (UA)(Auto) Negative (Negative) 02/19/24 23:05 Urine Ketones Negative (Negative) 02/19/24 23:05 Urine Blood 1+ (Negative) H 02/19/24 23:05 Urine Nitrite 1+ (Negative) H 02/19/24 23:05 Urine Bilirubin Negative (Negative) 02/19/24 23:05 Urine Urobilinogen Normal (Normal) 02/19/24 23:05 Ur Leukocyte Esterase 500 Jill/uL (Negative) H 02/19/24 23:05 Urine RBC 5-10 /HPF (None Seen) H 02/19/24 23:05 Urine WBC >50 /HPF (<5) H 02/19/24 23:05 Urine WBC Clumps Few /HPF (None Seen) H 02/19/24 23:05 Ur Squamous Epith Cells <5 /HPF (None Seen) 02/19/24 23:05 Unidentified Crystals Few /HPF (None Seen) 02/19/24 23:05 Urine Bacteria 20-50 /HPF (<20) H 02/19/24 23:05 Urine Yeast (Budding) Few /HPF (None Seen) H 02/19/24 23:05 Urine Culture Reflexed Reflexed 02/19/24 23:05 Urine Total Protein Trace (Negative) H 02/19/24 23:05 Weight: 137 lb 11.2 oz Wound Present: No Negative Pressure Wound Therapy Present: No Physician Update: Labs reviewed and are stable. Her decubital wounds will be offloaded with gel cushion with opening. She is making fair overall progress with all therapy. Comment: 02/18: Pressure ulcers cleaned with NS, foam dressing applied Summary: Patient's care plan and long line teamster goals have been reviewed and revised as necessary. Please see the Rehabilitation Signature page for all necessary signatures.
[2024-02-21] MEDS: AMLODIPINE 5 MG TAB PO SCH (20:00)
[2024-02-21] MEDS: DOCUSATE NA/SENNA CONC 1 TAB PO PRN (20:26)
[2024-02-21] MEDS: IBUPROFEN 600 MG TAB PO SCH (20:27)
[2024-02-21] MEDS: DULOXETINE 20 MG CAP PO SCH (20:27)
[2024-02-22] MEDS: ASCORBIC ACID 500 MG TABLET PO SCH (08:10)
[2024-02-22] MEDS: VITAMIN D 5,000 UNIT CAP PO SCH (08:11)
[2024-02-22] MEDS: Meropenem 1,000 MG in NA CHLORIDE 0.9% 100 ML IV SCH (12:11)
[2024-02-22] MEDS: LIDOCAINE 4% PATCH TOP ONE (12:13)
[2024-02-22] MEDS: COLLAGENASE 30 GM OINTMENT TOP SCH (14:06)
[2024-02-22] MEDS ORDERED: NA CHLORIDE 0.9% 250 ML ONE (18:56)
[2024-02-22] MEDS: SENOSIDES 8.6 MG TAB PO SCH (19:15)
[2024-02-23] MEDS: LIDOCAINE 4% PATCH TOP SCH (08:54)
[2024-02-23] MEDS: IBUPROFEN 600 MG TAB PO PRN (16:56)
[2024-02-24] MEDS: GABAPENTIN 300 MG CAP PO SCH (13:40)
[2024-02-24] MEDS: APIXABAN 2.5 MG TABLET PO SCH (19:31)
--- NOTE | 2024-02-24 22:47 | PN ---
Date of Progress Note: 02/24/2024 Time Of Service: 1:15 p.m. Subjective: Ms. Cantrell is resting in her bed, doing therapy. She does report some mild pain still in the buttocks region where she has decubital ulcers. Still has some weakness that is persistent fr om her stroke and poor incoordination in the left and right upper extremities. Objective: No fevers, chills, nausea, vomiting. No myalgias, arthralgias. Again, 2 areas of decubi luis ulceration in back and buttock region. Wound Care is being asked to help and not yet seen the kristel delarosa. She is receiving Santyl with daily dressing changes currently. Physical Examination: Vital Signs: Blood pressure 143/65, pulse 65, respiratory rate 18, temperature 97.7, oxygen saturati on 96%. General: Again, Ms. Cantrell is resting in bed. HEENT: She is normocephalic, atraumatic. Sclerae anicteric. Oropharynx pink, moist. Neck: Supple. Chest: Clear. Neuro: She has diffuse weakness in upper and lower extremities and she has colostomy present with di version which are helpful for her decubital ulcers. Laboratory Studies: Blood sugars ranged from 92 to 165. Hemoglobin A1c noted is 4.9. Her urinalysi s from the did grow multiple bacteria, Klebsiella pneumoniae and Enterococcus faecalis. Medications: Her medication regimen includes meropenem 1000 mg every 12 hours beginning on 02/21. I n addition, medications are Senokot for constipation, Ditropan for overactive bladder, Ensure Enlive for malnutrition, melatonin for insomnia, Synthroid for hypothyroidism, gabapentin now decreased to 6 00 mg 3 times daily from 900 mg 3 times daily due to daytime somnolence, Eliquis 2.5 mg twice daily f or DVT prophylaxis, Norvasc 5 mg twice daily for hypertension. Progress Made With Physical, Occupational, And Speech Therapy: With physical therapy today, she perf orms [id number] transfers requiring maximal assistance and verbal cues maximum assistance, again s it-to-stand transfers and [id number] transfers maximum assistance, mobilized wheelchair 40 feet w ith multiple rest breaks and minimum assistance. It is noted by the therapist that she was shaking a nd jerking more than usual today. Again, the dosage of gabapentin was decreased significantly. She did mobilize a wheelchair 20 feet with maximum assistance and verbal cues. With occupational therapy , did tolerate range of motion exercises, left upper extremity practice reaching for medium-sized obj ects. Did have decreased dysmetria when reaching. With speech, problem solving skills used to discu ss cause effect relationship with 60% accuracy. She did 3-step sequence events with 75% accuracy and moderate assistance. 3 of 3 unrelated words were recalled after 4 and 6 minutes using spaced retrie fran. Ms. Cantrell is an 88-year-old patient with sequelae of stroke. She has decubital ulcers, a colostomy in place. She has significant decreased mobility, decreased physical functioning in addition to UTI with multiple bacteria sensitive to meropenem. She has E. coli and Klebsiella pneumoniae. She has nystatin for skin fold fungal infection in the abdominal region, Synthroid for hypothyroidism, gabape ntin for neuropathic pain has been decreased due to somnolence and she has vitamin B12 on board. She has duloxetine 20 mg twice daily, Ensure Enlive for malnutrition, Senokot for constipation. Comorbidities That Are Impacting Rehabilitation: Currently, decubital ulcers and urinary tract infec tion potentially lead to worsening stomach infection. Therefore, she is on strong antibiotic of renan penem for that, continue at least 7 days. Otherwise, she has significant decrease in mobility and de creased physical functioning, likely related to debility on top of her sequelae of chronic stroke. S he is working as well as she can to improve her strength, cognitive functioning is improving moderate ly as well. LB/MODL Voice ID: [id number] Report ID: [id number]
--- NOTE | 2024-02-25 21:55 | PN ---
Date of Progress Note: 02/25/2024 Time Of Service: 1:20 p.m. Subjective: Ms. Cantrell is doing very well, resting in bed. She says pain in her lower back and low er extremities is not worse. She still has significant decrease in range of motion in the left upper extremity and poor dexterity with the left hand. Otherwise, she is doing better. Objective: No fevers, chills, nausea, vomiting. No myalgias, arthralgias. She again has areas of de cubital ulcer in the buttock region and the back, those have been offloaded. Wound Care is assisting with Santyl and daily dressing changes. Physical Examination: Vital Signs: Blood pressure 109/53, pulse 52, respiratory rate 16, temperature 97.8, oxygen saturati on 97%. General: Ms. Cantrell is resting comfortably. She is in no acute distress. HEENT: She is normocephalic, atraumatic. Sclerae anicteric. Oropharynx pink and moist. Neck: Supple. Extremities: She does have arthritic changes in the hands. Decreased mobility in terms of left arm range of motion and weakness in lower extremities, symmetric. Laboratory Studies: Blood sugars ranged from 90 to 165. X-ray/imaging: No new x-rays or imaging. Medications: Medications have been reviewed. She is on Eliquis 2.5 mg twice daily for DVT prophylax is. All other medications are unchanged. Progress Made With Physical, Occupational, And Speech Therapy: With physical therapy today, she did bed mobility with maximum assistance, incoordination noted. She required maximum assistance with mul tiple vsj-fw-rhyyo transfers. Stand pivot transfers also required maximum assistance. She mobilized a wheelchair 50 feet with minimum assistance using bilateral lower extremities. She was able to sta nd for less than 30 seconds with moderate assistance. She did walk in the parallel bars twice with m aximum assistance, taking 3 steps each. Regarding her occupational therapy, did have some significan t pain in the left shoulder, decreased range of motion. Still motivated to work with the therapist. Some difficulty due to pain in the shoulder, elbow, and hand. She did tolerate about 100 degrees ra nge of motion in the left shoulder. In addition, she required moderate assistance to roll from left to right and pain in the left shoulder with decreased range of motion is an impacting factor. With greg white, demonstrated ability to sequence 3 steps when given moderate verbal cues. With cause and effe ct situations, she did provide with 50% accuracy and moderate assistance in terms of her appropriate answers. Assessment And Plan: Ms. Cantrell is an 88-year-old patient in the rehabilitation unit with sequelae of stroke. She has decreased mobility, decreased physical functioning, constipation. She is on renan penem, urinary tract infection; melatonin for insomnia; nystatin for fungal infections in the skin fo lds. She has gabapentin for neuropathic pain, which has been decreased to 600 mg 3 times a day with duloxetine 20 mg twice daily. It is noted that her state of alertness is better after decreasing fro m 900 three times a day to 600 three times a day gabapentin. She does have collagenase applied to th e wounds in her back and followed by the wound care service. She has Norvasc for hypertension, Eliqu is for deep venous thrombosis prophylaxis. Plan: 1.She will continue with physical, occupational, and speech therapy 3.5 hours, 5 of 7 days. 2.She will continue with comorbid condition medications listed as noted. She does have decubital ul cers and those are being addressed. Range of motion decreased in the left upper extremity. There is pain also limiting her. She has significant difficulty attempting to ambulate, mobilizing better wi th a wheelchair, but still fatigues very easily and has a long way to go to be able to become independent. Her discharge will have to be in a safe facility or place where she can have 24- hour care/supervision. MARISA/GABRIELA Voice ID: [id number] Report ID: [id number]
[2024-02-27] MEDS: ACETAMINOPHEN 500 MG TAB PO PRN (06:39)
[2024-02-27 08:15] LABS: Absolute Eosinophils 0.3 K/uL (0-0.5); Absolute Lymphocytes (CBC) 1.2 K/uL (0.7-4.9); Absolute Monocytes 0.3 K/uL (0.1-1.3); Absolute Neutrophil 3.1 K/uL (1.8-8.0); Basophils % 0.8 % (0-1.3); Eosinophils % 5.4 % (0-4.4); Hematocrit 33.4 % (36.0-45.0); Hemoglobin 11.6 g/dL (12.0-15.0); Lymphocytes % 24.1 % (15.3-44.8); MCH 31.4 pg (27.0-35.0); MCHC 34.8 g/dL (32.0-36.0); MCV 90.2 fL (80-100); MPV 9.1 fL (7.6-11.3); Monocytes % 5.7 % (3.3-12.3); Nucleated Red Blood Cells % 0.1 % (0-0); Platelets 131 thou/uL (152-406); RBC Red Blood Cell Count 3.71 M/uL (3.86-4.86); Red Cell Distribution Width 14.9 % (12.1-15.2)
[2024-02-27 08:49] LABS: Albumin 2.5 g/dL (3.4-5.0); Anion Gap 6.4 mEq/L (5.0-15.0); Magnesium 2.1 mg/dL (1.6-2.4); Potassium 4.4 mEq/L (3.5-5.1); Prealbumin 18.8 mg/dL (20-40)
[2024-02-27 15:06] LABS: SARS-CoV-2 Antigen CONTROL BLUE LINE VIS/BG OK; SARS-CoV-2 Antigen Rapid Res Negative (Negative)
--- NOTE | 2024-02-27 22:50 | PN ---
Date of Progress Note: 02/27/2024 [id number] progress note. Subjective: Ms. Cantrell is lying in bed. She feels somewhat better about how she is doing in terms of recovering her strength, but there is still significantly poor dexterity and strength in the right upper extremity and limited range of motion in the left upper extremity. Objective: No fevers, chills, nausea, vomiting. She has mild myalgias or arthralgias reported today . The decubital ulcer areas have been offloaded and those are less painful. Physical Examination: Vital Signs: Blood pressure 127/60, pulse 58, respiratory rate 18, temperature 97.8, O2 saturation 9 5%. General: Again, Mrs. Cantrell is resting in bed. She is in no significant distress. HEENT: She appears normocephalic, atraumatic. Neurologic: She has significant weakness that is noted in the right upper extremity distally, diffic ulty with fine motor movements and significant weakness noted again in the right hand and decreased r winter of motion of left shoulder, all unchanged. Laboratory Studies: White blood cell count 4.9, hemoglobin 11.6. Sodium 139, potassium 4.4, chlorid e 108, carbon dioxide 29, BUN 22, creatinine 0.97, glucose 103, calcium 10.3, glucose ranged from 90 to 165, magnesium 2.1, albumin 2.5, prealbumin 18.8. COVID testing today is negative. X-ray/imaging: No new x-rays or imaging. Again, there is the weakness in the right upper extremity, which is unchanged. Some decreased range of motion of left upper extremity, decubital ulcers are being offloaded in the buttocks and lower [place]. Progress Made With Physical, Occupational, And Speech Therapy: With physical therapy today, she did bed mobility with maximal assistance, showed some improved ability to sit at edge of bed, completed m ultiple [id number] transfers, wheelchair mobilization 50 feet twice with minimum assistance. The o ccupational therapy, she did reaching for cones with left and right upper extremities. Did have some decrease in ataxia. With speech, she had worked on short-term memory. She was able to recall 3 of 3 unrelated items after 3 minutes and then 5 minutes independently. She had 50% accuracy for both ca use and effect relationships and sequencing. Assessment: Ms. Cantrell is an 88-year-old patient in rehabilitation with a sequela of remote stroke. She has decubital ulcers. She has decreased range of motion of left upper extremity and stroke aff ecting the right upper extremity with incoordination and weakness along with poor dexterity. She has again comorbidities, decreased mobility, decreased physical functioning, depression, neuropathic elva n, hypothyroidism, orthostatic hypotension, constipation. Plan: 1.Continue with physical, occupational, and speech therapy 3.5 hours, 5 of 7 days. 2.Continue her list of comorbid condition medications as noted. She is also on meropenem 1 g every 12 hours for UA did grow Klebsiella pneumoniae and Enterococcus faecalis that showed the sensitivity and the Klebsiella pneumoniae was extended spectrum beta-lactamases. LB/MODL Voice ID: [id number] Report ID: [id number]
[2024-02-28 08:45] LABS: Absolute Eosinophils 0.3 K/uL (0-0.5); Absolute Lymphocytes (CBC) 0.9 K/uL (0.7-4.9); Absolute Monocytes 0.2 K/uL (0.1-1.3); Absolute Neutrophil 3.2 K/uL (1.8-8.0); Basophils % 0.7 % (0-1.3); Eosinophils % 5.8 % (0-4.4); Hematocrit 34.5 % (36.0-45.0); Hemoglobin 11.9 g/dL (12.0-15.0); Lymphocytes % 20.2 % (15.3-44.8); MCH 31.4 pg (27.0-35.0); MCHC 34.5 g/dL (32.0-36.0); MPV 8.9 fL (7.6-11.3); Monocytes % 4.8 % (3.3-12.3); Neutrophils % 68.5 % (41.7-73.7); Nucleated Red Blood Cells % 0.1 % (0-0); Platelets 137 thou/uL (152-406); RBC Red Blood Cell Count 3.79 M/uL (3.86-4.86); Red Cell Distribution Width 15.2 % (12.1-15.2)
--- NOTE | 2024-02-28 11:52 | RAD REPORT ---
EXAMINATION: ONE VIEW CHEST XR CLINICAL INDICATION: Female, 88 years old.,cough TECHNIQUE: Frontal chest projection is submitted. Examination is limited by patient positioning and t echnique. COMPARISON: 07/24/2020 FINDINGS: The lungs are well inflated and clear. No pneumothorax or sizable effusion. The heart is normal in s ize. Mediastinal contours are unchanged. IMPRESSION: No acute intrathoracic abnormalities.
[2024-02-28] MEDS: NA CHLORIDE 0.9% 1,000 ML IV SCH (12:15)
--- NOTE | 2024-02-28 13:12 | RAD REPORT ---
EXAMINATION: XR PELVIS CLINICAL INDICATION: Female, 88 years old. [facility] rule out ostemyelitis TECHNIQUE: AP Pelvis radiograph was obtained. COMPARISON: No prior exam. FINDINGS: No evidence of fracture or dislocation. Moderate bilateral hip joint degenerative changes w ith marginal spurring. Osteopenia limits evaluation. Normal alignment. No evidence of AVN. Atherosclerotic calcifications of the iliac vessels. Degenerative changes of the lower lumbar spine a nd sacroiliac joints. IMPRESSION: No acute abnormalities. Chronic findings as above. If there is concern for acute osteomyelitis, MRI of the pelvis would provide improved sensitivity.
--- NOTE | 2024-02-28 13:34 | P.RH.PN ---
Estimated Length of Stay: 20 Expected Discharge Date: 03/10/24 Discharge Disposition Plan: Unknown at this time Family Support: Yes Custodial Goal: Mobility, Transfers, Self Care Vital Signs: Last Vital Signs Temp 98.2 F 02/28/24 07:00 Pulse 55 02/28/24 07:36 Resp 16 02/28/24 07:00 BP 118/54 L 02/28/24 07:36 Pulse Ox 98 02/28/24 07:00 Laboratory: Laboratory Last Values WBC 4.60 thou/uL (4.3-10.9) 02/28/24 08:36 RBC 3.79 M/uL (3.86-4.86) L 02/28/24 08:36 Hgb 11.9 g/dL (12.0-15.0) L 02/28/24 08:36 Hct 34.5 % (36.0-45.0) L 02/28/24 08:36 MCV 91.0 fL (80-100) 02/28/24 08:36 MCH 31.4 pg (27.0-35.0) 02/28/24 08:36 MCHC 34.5 g/dL (32.0-36.0) 02/28/24 08:36 RDW 15.2 % (12.1-15.2) 02/28/24 08:36 Plt Count 137 thou/uL (152-406) L 02/28/24 08:36 MPV 8.9 fL (7.6-11.3) 02/28/24 08:36 Neutrophils % 68.5 % (41.7-73.7) 02/28/24 08:36 Lymphocytes % 20.2 % (15.3-44.8) 02/28/24 08:36 Monocytes % 4.8 % (3.3-12.3) 02/28/24 08:36 Eosinophils % 5.8 % (0-4.4) H 02/28/24 08:36 Basophils % 0.7 % (0-1.3) 02/28/24 08:36 Absolute Neutrophils 3.2 K/uL (1.8-8.0) 02/28/24 08:36 Absolute Lymphocytes 0.9 K/uL (0.7-4.9) 02/28/24 08:36 Absolute Monocytes 0.2 K/uL (0.1-1.3) 02/28/24 08:36 Absolute Eosinophils 0.3 K/uL (0-0.5) 02/28/24 08:36 Absolute Basophils 0.0 K/uL (0-0.5) 02/28/24 08:36 Sodium 139 mEq/L (136-145) 02/27/24 07:49 Potassium 4.4 mEq/L (3.5-5.1) 02/27/24 07:49 Chloride 108 mEq/L (98-107) H 02/27/24 07:49 Carbon Dioxide 29 mEq/L (21-32) 02/27/24 07:49 Anion Gap 6.4 mEq/L (5.0-15.0) 02/27/24 07:49 BUN 22 mg/dL (7-18) H 02/27/24 07:49 Creatinine 0.97 mg/dL (0.55-1.02) 02/27/24 07:49 Est GFR (CKD-EPI) 57 ml/min (=/>90) L 02/27/24 07:49 Glucose 103 mg/dL (74-106) 02/27/24 07:49 POC Glucose 165 mg/dL (65-120) H 02/20/24 19:35 Hemoglobin A1c 4.9 % (4.2-6.3) 02/20/24 05:36 Calcium 10.3 mg/dL (8.5-10.1) H 02/27/24 07:49 Magnesium 2.1 mg/dL (1.6-2.4) 02/27/24 07:49 Albumin 2.5 g/dL (3.4-5.0) L 02/27/24 07:49 Prealbumin 18.8 mg/dL (20-40) L 02/27/24 07:49 Urine Color Light-yellow (Yellow) 02/19/24 23:05 Urine Clarity Extremely turbid (Clear) H 02/19/24 23:05 Urine pH 7.0 (5.0-7.0) 02/19/24 23:05 Ur Specific [place] 1.010 (1.005-1.030) 02/19/24 23:05 Glucose (UA)(Auto) Negative (Negative) 02/19/24 23:05 Urine Ketones Negative (Negative) 02/19/24 23:05 Urine Blood 1+ (Negative) H 02/19/24 23:05 Urine Nitrite 1+ (Negative) H 02/19/24 23:05 Urine Bilirubin Negative (Negative) 02/19/24 23:05 Urine Urobilinogen Normal (Normal) 02/19/24 23:05 Ur Leukocyte Esterase 500 Jill/uL (Negative) H 02/19/24 23:05 Urine RBC 5-10 /HPF (None Seen) H 02/19/24 23:05 Urine WBC >50 /HPF (<5) H 02/19/24 23:05 Urine WBC Clumps Few /HPF (None Seen) H 02/19/24 23:05 Ur Squamous Epith Cells <5 /HPF (None Seen) 02/19/24 23:05 Unidentified Crystals Few /HPF (None Seen) 02/19/24 23:05 Urine Bacteria 20-50 /HPF (<20) H 02/19/24 23:05 Urine Yeast (Budding) Few /HPF (None Seen) H 02/19/24 23:05 Urine Culture Reflexed Reflexed 02/19/24 23:05 Urine Total Protein Trace (Negative) H 02/19/24 23:05 SARS-CoV-2 Ag (Rapid) Negative (Negative) 02/27/24 14:31 Weight: 126 lb Wound Present: No Closed Surgical Incision Present: No Negative Pressure Wound Therapy Present: No Physician Update: SLUMS 11, poor short term memory and sequencing. Labs reviewed and are stable. With PT max assist for bed mobility, transfers, mod assist with wheelchair. No able to walk functionally. With OT met [address] goals otherwise min to max to do all ADLs. X-ray of pelvis shows no acute fractures. Comment: 02/26/24: Pressure ulcers cleaned with NS, foam dressing applied santyl Summary: Patient's care plan and [facility]cfp goals have been reviewed and revised as necessary. Please see the Rehabilitation Signature page for all necessary signatures.
[2024-02-28] MEDS: FLUCONAZOLE 100 MG TAB PO SCH (14:09)
[2024-02-28] MEDS: JUVEN PACKET PO SCH (20:06)
[2024-03-02] MEDS ORDERED: NA CHLORIDE 0.9% 250 ML ONE (18:34)
--- NOTE | 2024-03-02 22:53 | PN ---
Date of Progress Note: 03/02/2024 Time Of Service: 1:15 p.m. Subjective: Ms. Cantrell is resting in bed. She reports some improvement in terms of pain in upper a nd lower extremities, little improvement in terms of strength and dexterity, but she has had chronic strokes and she is in sequelae of strokes. Objective: Denies any fevers, chills, nausea, vomiting. No myalgias, arthralgias. No other new com plaints. She does have, however, some pain in the decubital ulcer areas and those are being offloade d on an ongoing basis. Physical Examination: Vital Signs: Blood pressure 125/63, pulse 84, respiratory rate 18, temperature 98.2, O2 saturation 9 5%. General: Ms. Cantrell is resting comfortably in her bed. She does have essential tremors symptoms wh ich are fairly well controlled with larger utensils, able to get her food in the mouth, which she is very happy about that, especially using the weighted and counter balancing utensils or spoon. HEENT: She is otherwise normocephalic, atraumatic. She does not appear cachectic and has some mild arthritic changes of the hands and difficulty with opening and closing due to focal weakness and poor dexterity of the upper extremities. Laboratory Studies: No new laboratory studies. X-ray imaging, she did have a pelvic x-ray done on 0 02/27 this study showed no concerning abnormalities, chronic finding seen. Chest x-ray done on the 3r d showed no acute intrathoracic abnormalities. Progress Made With Physical, Occupational, And Speech Therapy: Today, she did bed mobilization with minimum assistance. Tremors again noted of course, which are essential tremors. Wheelchair mobility with moderate assistance and over hand she covered 30 feet with some assistance consistency cuing re quired. With occupational therapy, she was dependent for scooting up edge of bed, rolling right to l eft. She did have the pain in the buttocks while lying in supine position. She did engage in bed ba th and required maximum assistance to wash herself. With speech recall 3 of 3 unrelated pictures aft er 5 minutes with minimum cues. On a second attempt, no cues were needed. Demonstrated ability to d escribe cause and effect relationships with 50% accuracy. Assessment: Ms. Cantrell is an 88-year-old patient in rehabilitation unit with sequelae of stroke. S he has bilateral weakness in the extremities. She has essential tremor. She has decreased mobility, decreased physical functioning, hypertension. She does have diflucan for a chronic infection. Levo thyroxine for hypothyroidism, melatonin for insomnia. Urinary retention addressed with Ditropan, Sen okot for constipation. Plan: She will continue with physical, occupational, and speech therapy 3.5 hours, 5 of 7 days. She does have a list of comorbid conditions and medications which have been addressed and noted they michael l continue. She is set for discharge in the morning and will follow up with therapy. Followup with her primary care physician and neurologist as scheduled. MARISA/GABRIELA Voice ID: [id number] Report ID: [id number]
[2024-03-03 07:01] VITALS: BP 114/54; TEMP 98.4
== END 2024-03-03 15:00 | DRG 57 ==
LOC: 5TH 20:00
PROVIDERS: ADMIT Psychiatry & Neurology Neurology with Special Qualifications in Child Neurology; ATTEND Psychiatry & Neurology Neurology with Special Qualifications in Child Neurology
DX: I69.354 Hemiplegia and hemiparesis following cerebral infarction affecting left non-dominant side (principal); N39.0 Urinary tract infection, site not specified; E46 Unspecified protein-calorie malnutrition; L89.151 Pressure ulcer of sacral region, stage 1; L89.312 Pressure ulcer of right buttock, stage 2; E11.65 Type 2 diabetes mellitus with hyperglycemia; I10 Essential (primary) hypertension; R53.81 Other malaise; R32 Unspecified urinary incontinence; B96.20 Unspecified Escherichia coli [E. coli] as the cause of diseases classified elsewhere; B96.1 Klebsiella pneumoniae [K. pneumoniae] as the cause of diseases classified elsewhere; E03.9 Hypothyroidism, unspecified; K59.00 Constipation, unspecified; Z68.22 Body mass index [BMI] 22.0-22.9, adult; I95.1 Orthostatic hypotension; G47.00 Insomnia, unspecified
CPT/HCPCS: 36415; 71045; 72040; 72170; 80048; 81001; 82040; 82947; 83036; 83735; 84134; 85025; 87070; 87075; 87077; 87081; 87086; 87088; 87186; 87205; 87804; 87811; 92523; 97110; 97112; 97116; 97124; 97129; 97140; 97163; 97165; 97530; 97542; J2003; J2185; J3590; J7030; J7050

== ENCOUNTER 2024-03-16 11:40 | Emergency (ER) | payer OTHER ==
--- NOTE | 2024-03-16 12:05 | RAD REPORT ---
EXAM: CT brain without contrast HISTORY: left eye subconjunctival hemorrhage COMPARISON: 03/04/2013 TECHNIQUE: Multiple contiguous axial images were obtained and a CT of the brain without contrast. Sag ittal and coronal reformats were performed. One or more of the following dose reduction techniques were used: Automated exposure control, adjust ment of the mA and/or kV according to patient size, and/or iterative reconstruction. FINDINGS: No evidence of hydrocephalus, intracranial hemorrhage, or extra-axial fluid collection. Mild brain atrophy with mild periventricular and deep white matter chronic microvascular ischemic ch anges present. No evidence of midline shift or areas of brain edema. The calvarium is intact. The visualized paranasal sinuses and mastoid air cells are essentially clear . IMPRESSION: No evidence of acute intracranial abnormality.
--- NOTE | 2024-03-16 13:07 | ER ---
Nurse's Notes [facility] Name: Valerie Cantrell Age: 88 yrs Sex: Female : 1935 Arrival Date: 03/16/2024 Time: 11:40 Bed 15 Private MD: Diagnosis: Conjunctival hemorrhage, left eye Presentation: 03/16 11:45 Chief complaint: EMS states: toned out to [facility] for left eye drainage ld1 and redness. Coronavirus screen: At this time, the client does not indicate any symptoms associated with coronavirus-19. Ebola Screen: No symptoms or risks identified at this time. Risk Assessment: Do you want to hurt yourself or someone else? Patient reports no desire to harm self or others. Onset of symptoms was March 16, 2024. 11:45 Method Of Arrival: EMS: [facility] ld1 11:45 Acuity: HAI 4 ld1 Triage Assessment: 11:46 General: Appears in no apparent distress. comfortable, Behavior is calm, cooperative, ld1 appropriate for age. Pain: Denies pain. EENT: Eyes redness and swelling to left eye. Neuro: Level of Consciousness is awake, alert, obeys commands, Oriented to person, place, time, situation. Cardiovascular: Capillary refill < 3 seconds Patient's skin is warm and dry. Respiratory: Airway is patent Respiratory effort is even, unlabored. GI: Abdomen is flat, non-distended. : No signs and/or symptoms were reported regarding the genitourinary system. Derm: No signs and/or symptoms reported regarding the dermatologic system. Musculoskeletal: No signs and/or symptoms reported regarding the musculoskeletal system. Historical: - Allergies: 11:46 No Known Allergies; ld1 - PMHx: 11:46 Hypertension; neuropathy; stroke; Thyroid problem; ld1 - Immunization history:: Adult Immunizations up to date, Last tetanus immunization:. - Infectious Disease History:: Denies. - Social history:: Smoking status: Patient denies any tobacco usage or history of. Screenin:48 [facility] ED Fall Risk Assessment (Adult) History of falling in the last 3 months, ld1 including since admission No falls in past 3 months (0 pts) Confusion or Disorientation No (0 pts) Intoxicated or Sedated No (0 pts) Impaired Gait No (0 pts) Mobility Assist Device Used No (0 pt) Altered Elimination No (0 pt) Score/Fall Risk Level 0 - 2 = Low Risk Oriented to surroundings, Maintained a safe environment, Educated pt \T\ family on fall prevention, incl call for assistance when getting out of bed, Assessed \T\ reinforced patient's understanding of fall precautions, Provided non-skid footwear, Hourly rounding (assess needs \T\ fall precautionary measures) done, Used ambulatory aids as needed (educated on \T\ assisted with), Used gait belt as appropriate. Abuse screen: Denies threats or abuse. Denies injuries from another. Nutritional screening: No deficits noted. Tuberculosis screening: No symptoms or risk factors identified. Assessment: 11:48 Reassessment: See triage assessment. ld1 13:04 Reassessment: Patient appears in no apparent distress at this time. No changes from ld1 previously documented assessment. Patient and/or family updated on plan of care and expected duration. Pain level reassessed. Patient is alert, oriented x 3, equal unlabored respirations, skin warm/dry/pink. 13:20 Reassessment: Called report to [facility] to arrange transport back to facility. ld1 Vital Signs: 11:50 BP 151 / 70; Pulse 71; Resp 18; Temp 98.1(O); Pulse Ox 98% on R/A; Weight 56.7 kg; ld1 Height 5 ft. 3 in. ; Pain 0/10; 13:04 BP 142 / 76; Pulse 74; Resp 18; Pulse Ox 100% on R/A; ld1 15:00 BP 114 / 99; Pulse 73; Resp 16; Temp 98.4; Pulse Ox 100% ; me1 11:50 Body Mass Index 22.14 (56.70 kg, 160.02 cm) ld1 11:50 Pain Scale: Adult ld1 Visual Acuity: 12:16 Left Eye Visual acuity 20/50, ; Right Eye Visual acuity 20/70, ; Both Eyes Visual ld1 acuity 20/50; Without Lenses; ED Course: 11:45 Patient arrived in ED. ld1 11:45 James Graham PA is PHCP. cp 11:45 Leodan Green MD is Attending Physician. cp 11:46 Triage completed. ld1 11:46 Arm band placed on right wrist. ld1 11:48 Patient has correct armband on for positive identification. Placed in gown. Bed in low ld1 position. Call light in reach. Side rails up X2. Pulse ox on. NIBP on. Door closed. Noise minimized. Warm blanket given. 11:48 No provider procedures requiring assistance completed. ld1 12:03 CT Head Brain wo Cont In Process Unspecified. EDMS 13:04 Amber Thompson, RN is Primary Nurse. ld1 13:05 Светлана Godinez MD is Referral Physician. cp 15:25 Provided Education on: Discharge instructions discussed with Amanda from [place]. me1 15:25 Patient did not have IV access during this emergency room visit. me1 Administered Medications: No medications were administered Medication: 11:48 VIS not applicable for this client. ld1 Outcome: 13:06 Discharge ordered by . cp 15:25 Discharged to half-way. Report called to Amanda me1 15:25 Condition: stable 15:25 Discharge instructions given to patient, half-way, Instructed on discharge instructions, follow up and referral plans. Demonstrated understanding of instructions, follow-up care, 15:26 Patient left the ED. me1 Signatures: Dispatcher [employer] EDSC James Graham PA PA cp Amber Thompson, RN RN ld1 Gabby Ochoa, RN RN me1
--- NOTE | 2024-03-16 13:07 | EDPHYS ---
Physician Documentation [facility] Name: Valerie Cantrell Age: 88 yrs Sex: Female : 1935 Arrival Date: 03/16/2024 Time: 11:40 Bed 15 Private MD: ED Physician Leodan Green HPI: 03/16 11:50 This 88 yrs old Female presents to ER via EMS with complaints of Eye Problem. cp 11:50 The patient is experiencing redness, to the left eye, caused by an unknown mechanism. cp Onset: The symptoms/episode began/occurred this morning. 11:50 Associated signs and symptoms: Pertinent negatives: dizziness, fever, headache. cp 11:50 Patient does not utilize any form of vision correction. cp Historical: - Allergies: 11:46 No Known Allergies; ld1 - PMHx: 11:46 Hypertension; neuropathy; stroke; Thyroid problem; ld1 - Immunization history:: Adult Immunizations up to date, Last tetanus immunization:. - Infectious Disease History:: Denies. - Social history:: Smoking status: Patient denies any tobacco usage or history of. ROS: 11:55 Eyes: Positive for redness, of the left eye, Negative for foreign body sensation, pain, cp Exam: 11:58 Constitutional: The patient appears in no acute distress, alert, awake, cp non-diaphoretic, non-toxic, well developed, well nourished, 11:58 Head/Face: Normocephalic, atraumatic. cp 11:58 Eyes: Periorbital structures: appear normal, Pupils: equal, round, and reactive to light and accomodation, Extraocular movements: intact throughout, Conjunctiva: subconjunctival hemorrhage(s), seen in the left eye, large size noted to medial and lateral side of conjunctiva, Corneas: are normal, no foreign body, Anterior chamber: normal, no hyphema, Lids and lashes: appear normal, bilaterally, Examination of the other eye reveals no obvious gross abnormality, right eye, 11:58 ENT: External ear(s): are unremarkable, Nose: noted congestion, Mouth: Lips: moist, Oral mucosa: pink and intact, moist, Posterior pharynx: Airway: no evidence of obstruction, patent, 11:58 Neck: ROM/movement: is normal, is supple, without pain, no range of motions limitations, 11:58 Chest/axilla: Inspection: normal, 11:58 Cardiovascular: Rate: normal, 11:58 Respiratory: the patient does not display signs of respiratory distress, Respirations: normal, no use of accessory muscles, no retractions, labored breathing, is not present, Breath sounds: are clear throughout, no decreased breath sounds, no stridor, no wheezing, 11:58 Abdomen/GI: Inspection: abdomen appears normal, Palpation: abdomen is soft and non-tender, in all quadrants, 11:58 Neuro: Orientation: to person, place \T\ time. Mentation: is normal, Vital Signs: 11:50 BP 151 / 70; Pulse 71; Resp 18; Temp 98.1(O); Pulse Ox 98% on R/A; Weight 56.7 kg; ld1 Height 5 ft. 3 in. ; Pain 0/10; 13:04 BP 142 / 76; Pulse 74; Resp 18; Pulse Ox 100% on R/A; ld1 15:00 BP 114 / 99; Pulse 73; Resp 16; Temp 98.4; Pulse Ox 100% ; me1 11:50 Body Mass Index 22.14 (56.70 kg, 160.02 cm) ld1 11:50 Pain Scale: Adult ld1 Visual Acuity: 12:16 Left Eye Visual acuity 20/50, ; Right Eye Visual acuity 20/70, ; Both Eyes Visual ld1 acuity 20/50; Without Lenses; MDM: 12:00 Differential diagnosis: Corneal abrasion of left eye. Foreign body in left eye. Acute cp iritis of left eye. Acute glaucoma in left eye. Allergic conjunctivitis in left eye. Infectious conjunctivitis in left eye. subconjunctival hemorrhage, trauma, intracranial bleed. 13:06 Medical Screening Exam initiated cp 13:06 Data reviewed: vital signs, nurses notes, radiologic studies, CT scan, and as a result, cp I will discharge patient. 13:06 Care significantly affected by the following chronic conditions: Hypertension. cp Counseling: I had a detailed discussion with the patient and/or guardian regarding the historical points, exam findings, and any diagnostic results supporting the discharge/admit diagnosis, radiology results, to return to the emergency department if symptoms worsen or persist or if there are any questions or concerns that arise at home. 03/16 11:46 Order name: CT Head Brain wo Cont; Complete Time: 12:28 cp 03/16 12:29 Interpretation: Report reviewed. cp 03/16 11:46 Order name: Visual Acuity; Complete Time: 12:17 cp Administered Medications: No medications were administered Disposition: 16:06 Co-signature as Attending Physician, Leodan Green MD I reviewed the patient's care rn provided by the Advanced Practice Provider and agree with the diagnosis and treatment plan. 03/17 13:58 Chart complete. cp Disposition Summary: 03/16/24 13:06 Discharge Ordered Notes: Location: Home cp Condition: Stable cp Diagnosis - Conjunctival hemorrhage, left eye cp Followup: cp - With: Светлана Godinez MD - When: 2 - 3 days - Reason: Recheck today's complaints Discharge Instructions: - Discharge Summary Sheet cp - Subconjunctival Hemorrhage cp Forms: - Medication Reconciliation Form cp - Antibiotic Education cp - Prescription Opioid Use cp - Patient Portal Instructions cp - Leadership Thank You Letter cp Signatures: Dispatcher [employer] EDLeodan Moses MD MD rn Page, Corey, PA PA cp Amber Thompson, RN RN ld1
[2024-03-16 15:57] VITALS: TEMP 98.1
[2024-03-16 15:58] VITALS: BP 142/76; O2SAT 100
== END 2024-03-16 15:26 | disposition home or self-care (01) ==
LOC: ER 11:40
DX: H11.32 Conjunctival hemorrhage, left eye (principal)
CPT/HCPCS: 70450; 99284

== ENCOUNTER 2024-05-01 08:18 | Observation (INO) | payer OTHER ==
[2024-05-01 09:07] LABS: Specific Gravity 1.011 (1.005-1.030); Sqamous Epithelial None Seen /HPF (None Seen); Urine Bacteria <20 /HPF (<20); Urine Bilirubin NEGATIVE (Negative); Urine Blood Trace (Negative); Urine Clarity Extremely Turbid (Clear); Urine Color Light-Yellow (Yellow); Urine Culture Reflex Order REFLEXED; Urine Glucose NEGATIVE (Negative); Urine Ketones NEGATIVE (Negative); Urine Microscopic Reflex YN ORDER UMIC; Urine Mucus Slight /HPF (None Seen); Urine Nitrite NEGATIVE (Negative); Urine Protein TRACE (Negative); Urine RBC <5 /HPF (None Seen); Urine Urobilinogen Normal (Normal); Urine WBC 20-50 /HPF (<5)
--- NOTE | 2024-05-01 09:11 | RAD REPORT ---
EXAM: CT brain without contrast HISTORY: Slurred speech. COMPARISON: February 2024 TECHNIQUE: Multiple contiguous axial images were obtained and a CT of the brain without contrast. Sagittal and coronal reformats were performed. Automated exposure control, adjustment of the mA and/or kV according to patient size, and/or itera tive reconstruction. Unless otherwise specified, incidental findings do not require dedicated imaging follow-u FINDINGS: An intracranial bleed is not seen Ventricles are normal caliber No extra-axial fluid collection noted Small low-density right cerebellum unchanged may represent an old small infarction. No fluid within the visualized sinuses or mastoids noted. IMPRESSION: No acute intracranial abnormality noted. If the patient's symptoms persist MRI of the brain would be recommended. from the emergency room was notified at 8:57 AM May 01, 2024
[2024-05-01 09:12] LABS: Absolute Eosinophils 0.2 K/uL (0-0.5); Absolute Lymphocytes (CBC) 1.1 K/uL (0.7-4.9); Absolute Monocytes 0.2 K/uL (0.1-1.3); Absolute Neutrophil 3.2 K/uL (1.8-8.0); Basophils % 0.9 % (0-1.3); Eosinophils % 4.7 % (0-4.4); Hematocrit 37.3 % (36.0-45.0); Hemoglobin 13.1 g/dL (12.0-15.0); MCH 31.3 pg (27.0-35.0); MCHC 35.1 g/dL (32.0-36.0); MCV 89.1 fL (80-100); Monocytes % 4.2 % (3.3-12.3); Neutrophils % 67.2 % (41.7-73.7); Nucleated Red Blood Cells % 0.2 % (0-0); Platelets 154 thou/uL (152-406); RBC Red Blood Cell Count 4.19 M/uL (3.86-4.86); Red Cell Distribution Width 15.3 % (12.1-15.2)
[2024-05-01 09:13] LABS: PT Prothrombin Time 13.7 SECONDS (10.0-13.0); Protime INR 1.21
--- NOTE | 2024-05-01 09:15 | RAD REPORT ---
EXAMINATION: CTA HEAD CLINICAL INDICATION: Slurred speech TECHNIQUE: Axial CT images were obtained through the head after 100 cc Isovue-370 intravenous contras t utilizing angiographic protocol with 3D post-processing (maximum intensity projection images, volume rendered images and/or shaded surface rendered images). One or more of the following dose red uction techniques were used: Automated exposure control, adjustment of the mA and/or kV according to patient size, and/or iterative reconstruction. Unless otherwise specified, incidental findings do not require dedicated imaging follow-up. COMPARISON: None FINDINGS: Distal internal carotid, basilar, anterior cerebral, middle cerebral and posterior cerebral arteries do not demonstrate a significant stenosis An aneurysm not noted. No large vessel occlusion IMPRESSION: No acute vascular abnormality displayed
--- NOTE | 2024-05-01 09:15 | RAD REPORT ---
EXAMINATION: Neck Angio CLINICAL INDICATION: Slurred speech TECHNIQUE: Axial CT images were obtained from the aortic arch to the skull base after intravenous adm inistration of 100 cc Isovue-370 utilizing angiographic protocol. Multiplanar reformats, as well as 3D post-processing (maximum intensity projection images, volume rendered images and/or shaded surface rendered images) were generated and reviewed. One or more of the following dose reduction techniques were used: Automated exposure control, adjustment of the mA and/or kV according to patient size, and/or iterative reconstruction. Unless otherwise specified, incidental findings do not require dedicated imaging follow-up. COMPARISON: No prior exam. FINDINGS: The visualized aortic arch and great vessels do not demonstrate a significant abnormality Mild plaque within common carotid, internal carotid and external carotid arteries bilaterally Vertebral arteries unremarkable No significant stenosis noted. A dissection is not seen. Methods for NASCET criteria: Mild stenosis, 0% to 49%; Moderate stenosis 50% to 69%; Severe stenosis, 70% to 99% IMPRESSION: No acute vascular abnormality displayed
[2024-05-01 09:19] LABS: AST/SGOT 15 U/L (15-37); Albumin/Globulin Ratio 0.8 (1.1-1.8); Alkaline Phosphatase 85 U/L (45-117); Anion Gap 8.1 mEq/L (5.0-15.0); BUN Blood Urea Nitrogen 17 mg/dL (7-18); Bicarbonate 30 mEq/L (21-32); Bilirubin Direct 0.2 mg/dL (0-0.2); Bilirubin Indirect, Calculated 0.3 mg/dL (0.2-0.8); Bilirubin Total 0.5 mg/dL (0.2-1.0); C-Reactive Protein 3.68 mg/L (<3.00); Glomerular Filtration Rate 64 ml/min (=/>90); Glucose Level 240 mg/dL (74-106); Lipase 16 U/L (13-75); Magnesium 1.7 mg/dL (1.6-2.4); NT PRO-BNP 197 pg/mL (<450); Potassium 3.1 mEq/L (3.5-5.1); Sodium Level 141 mEq/L (136-145); Troponin High Sensitivity 12.7 pg/mL (<58.9)
[2024-05-01 09:21] LABS: ALT/SGPT < 14 U/L (13-56)
[2024-05-01] MEDS ORDERED: FOLIC ACID 5 MG/ML VIAL ONE (09:34)
[2024-05-01] MEDS ORDERED: NA CHLORIDE 0.9% 1,000 ML ONE ×2 (09:35→15:18)
--- NOTE | 2024-05-01 10:04 | RAD REPORT ---
EXAMINATION: MRI BRAIN WITHOUT CONTRAST CLINICAL INDICATION: Slurred speech TECHNIQUE: Multiplanar multisequence MR images of the brain were obtained without intravenous contras t. Unless otherwise specified, incidental findings do not require dedicated imaging follow-up. COMPARISON: Head CT May 01, 2024 FINDINGS: Mild abnormal signal within periventricular, deep and subcortical white matter probably ischemic pablito nges secondary to small vessel disease. Diffusion weighted/ADC mapping does not demonstrate evidence of an acute infarction. Ventricles are normal caliber. No extra-axial fluid collection. No fluid within the sinuses/mastoid seen IMPRESSION: No acute intracranial abnormalities displayed
--- NOTE | 2024-05-01 10:08 | RAD REPORT ---
Procedure: Chest Single View HISTORY: Chest pain COMPARISON: February 2024 FINDINGS: The lungs appear clear of acute infiltrate. No significant pleural effusion noted. The heart is mildly enlarged. . IMPRESSION: No acute abnormality is displayed.
[2024-05-01] MEDS ORDERED: CEFTRIAXONE 1000 MG/VIAL ONE (11:33)
[2024-05-01] MEDS ORDERED: NA CHLORIDE 0.9% 100 ML ONE ×2 (11:34→15:18)
[2024-05-01] MEDS ORDERED: FAMOTIDINE 20 MG/2 ML VIAL IV ONE (11:34)
[2024-05-01] MEDS ORDERED: ASPIRIN 81 MG CHEWABLE TABLET ONE (11:34)
--- NOTE | 2024-05-01 11:54 | EDPHYS ---
Physician Documentation [facility] Name: Valerie Cantrell Age: 88 yrs Sex: Female : 1935 Arrival Date: 05/01/2024 Time: 08:18 Bed 8 Private MD: ED Physician James Jo HPI: 05/01 11:32 This 88 yrs old Female presents to ER via EMS with complaints of Chest Pain, pablito Slurred Speech. 11:32 The patient or guardian reports chest pain that is located primarily in the substernal pablito area. Onset: this morning. The pain does not radiate. Associated signs and symptoms: The patient has no apparent associated signs or symptoms. 11:33 The chest pain is described as a pressure. Modifying factors: The symptoms are pablito alleviated by nothing. the symptoms are aggravated by nothing. Severity of pain: At its worst the pain was moderate in the emergency department the pain is unchanged has improved moderately. The patient has experienced similar episodes in the past, a few times. Historical: - Allergies: 08:38 No Known Allergies; iw - PMHx: 08:37 Hypertension; neuropathy; stroke; Thyroid problem; iw - PSHx: 08:38 Colostomy; iw ROS: 11:33 Constitutional: Negative for fever, chills, and weight loss, Eyes: Negative for injury, pablito pain, redness, and discharge, ENT: Negative for injury, pain, and discharge, Neck: Negative for injury, pain, and swelling, Respiratory: Negative for shortness of breath, cough, wheezing, and pleuritic chest pain, Abdomen/GI: Negative for abdominal pain, nausea, vomiting, diarrhea, and constipation, Back: Negative for injury and pain, : Negative for injury, bleeding, discharge, and swelling, MS/Extremity: Negative for injury and deformity, Skin: Negative for injury, rash, and discoloration, Psych: Negative for depression, anxiety, suicide ideation, homicidal ideation, and hallucinations, Allergy/Immunology: Negative for hives, rash, and allergies, Endocrine: Negative for neck swelling, polydipsia, polyuria, polyphagia, and marked weight changes, 11:33 Cardiovascular: Positive for chest pain, of the chest, 11:33 Neuro: Positive for speech changes, could not speak when she woke 530-600 am, Exam: 11:33 Radiologist reports: cee all ct , cta's, mri [facility] 11:33 Constitutional: This is a well developed, well nourished patient who is awake, alert, and in no acute distress. Head/Face: Normocephalic, atraumatic. Eyes: Pupils equal round and reactive to light, extra-ocular motions intact. Lids and lashes normal. Conjunctiva and sclera are non-icteric and not injected. Cornea within normal limits. Periorbital areas with no swelling, redness, or edema. ENT: Nares patent. No nasal discharge, no septal abnormalities noted. Tympanic membranes are normal and external auditory canals are clear. Oropharynx with no redness, swelling, or masses, exudates, or evidence of obstruction, uvula midline. Mucous membranes moist. Neck: Trachea midline, no thyromegaly or masses palpated, and no cervical lymphadenopathy. Supple, full range of motion without nuchal rigidity, or vertebral point tenderness. No Meningismus. Chest/axilla: Normal chest wall appearance and motion. Nontender with no deformity. No lesions are appreciated. Cardiovascular: Regular rate and rhythm with a normal S1 and S2. No gallops, murmurs, or rubs. Normal PMI, no JVD. No pulse deficits. Respiratory: Lungs have equal breath sounds bilaterally, clear to auscultation and percussion. No rales, rhonchi or wheezes noted. No increased work of breathing, no retractions or nasal flaring. Abdomen/GI: Soft, non-tender, with normal bowel sounds. No distension or tympany. No guarding or rebound. No evidence of tenderness throughout. Back: No spinal tenderness. No costovertebral tenderness. Full range of motion. Skin: Warm, dry with normal turgor. Normal color with no rashes, no lesions, and no evidence of cellulitis. MS/ Extremity: Pulses equal, no cyanosis. Neurovascular intact. Full, normal range of motion., bilateral aka Neuro: Awake and alert, GCS 15, oriented to person, place, time, and situation. Cranial nerves II-XII grossly intact. Motor strength 5/5 in all extremities. Sensory grossly intact. Cerebellar exam normal. Normal gait. Psych: Awake, alert, with orientation to person, place and time. Behavior, mood, and affect are within normal limits. 11:33 ECG was reviewed by the Attending Physician. Vital Signs: 08:36 BP 137 / 94; Pulse 55; Resp 19; Temp 97.6; Pulse Ox 99% on R/A; iw 09:52 BP 156 / 69; Pulse 59; Resp 16; Pulse Ox 99% on R/A; Weight 57 kg; Height 5 ft. 3 in. ; bp 09:52 Body Mass Index 22.26 (57.00 kg, 160.02 cm) bp MDM: 08:26 Medical Screening Exam initiated pablito 11:47 TNKase (Tenecteplase) Screening: Contraindications: Other: awoke with asphasia this pablito morning, now resolved, not a tnk patient Is the patient on Aspirin, Heparin, or Warfarin: Yes. Data reviewed: vital signs, nurses notes, lab test result(s), EKG, radiologic studies. 05/01 08:29 Order name: Basic Metabolic Panel; Complete Time: 11:12 pablito 05/01 08:29 Order name: CBC with Diff; Complete Time: 11:12 [facility] 05/01 08:29 Order name: LFT's; Complete Time: 11:12 pablito 05/01 08:29 Order name: Magnesium; Complete Time: 11:12 pablito 05/01 08:29 Order name: NT PRO-BNP; Complete Time: 11:12 pablito 05/01 08:29 Order name: PT-INR; Complete Time: 11:12 pablito 05/01 08:29 Order name: Troponin HS; Complete Time: 11:12 pablito 05/01 08:29 Order name: Urinalysis w/ reflexes; Complete Time: 11:12 pablito 05/01 08:29 Order name: CRP; Complete Time: 11:12 pablito 05/01 08:29 Order name: Lipase; Complete Time: 11:12 pablito 05/01 09:21 Order name: CREATININE WHOLE BLOOD; Complete Time: 11:12 EDMS 05/01 09:44 Order name: Urine Culture EDMS 05/01 12:51 Order name: Urinalysis w/ reflexes EDMS 05/01 12:53 Order name: Urinalysis w/ reflexes EDMS 05/01 12:53 Order name: Basic Metabolic Panel EDMS 05/01 12:53 Order name: Basic Metabolic Panel EDMS 05/01 12:53 Order name: CBC with Automated Diff EDMS 05/01 12:53 Order name: CBC with Automated Diff EDMS 05/01 12:54 Order name: Magnesium EDMS 05/01 12:54 Order name: Magnesium EDMS 05/01 12:54 Order name: NT PRO-BNP EDMS 05/01 12:54 Order name: NT PRO-BNP EDMS 05/01 12:54 Order name: Troponin High Sensitivity EDMS 05/01 12:54 Order name: Troponin High Sensitivity EDMS 05/01 12:54 Order name: Troponin High Sensitivity EDMS 05/01 12:54 Order name: Troponin High Sensitivity EDMS 05/01 18:00 Order name: Troponin High Sensitivity EDMS 05/01 08:29 Order name: XRAY Chest (1 view); Complete Time: 11:12 [facility] 05/01 08:29 Order name: CT Stroke Brain w/o Contrast; Complete Time: 11:12 [facility] 05/01 08:29 Order name: CT Head Angio; Complete Time: 11:12 [facility] 05/01 08:29 Order name: CT Neck Angio; Complete Time: 11:12 [facility] 05/01 09:14 Order name: Brain Wo Cont; Complete Time: 11:12 [facility] 05/01 12:53 Order name: Physical Therapy Consult EDND 05/01 08:29 Order name: Cardiac monitoring; Complete Time: 08:44 [facility] 05/01 08:29 Order name: EKG - Nurse/Tech; Complete Time: 09:51 [facility] 05/01 08:29 Order name: IV Saline Lock; Complete Time: 08:44 [facility] 05/01 08:29 Order name: Labs collected and sent; Complete Time: 08:44 [facility] 05/01 08:29 Order name: O2 Per Protocol; Complete Time: 08:43 [facility] 05/01 08:29 Order name: O2 Sat Monitoring; Complete Time: 08:43 [facility] EC:33 Rate is 58 beats/min. Rhythm is regular. QRS [place] is Normal. [place] interval is normal. QRS pablito interval is normal. QT interval is normal. No Q waves. T waves are Normal. No ST changes noted. Clinical impression: Sinus bradycardia. Interpreted by me. Reviewed by me. Administered Medications: 09:50 Drug: foLIC Acid IVPB 1 mg IVPB once Route: IVPB; Site: right forearm; bp 09:50 Drug: NS 0.9% IV 1000 ml IV at 1000 ml once; to be given as a bolus over 60 minutes bp Route: IV; Rate: 1000 ml; Site: right forearm; 11:24 Not Given (Duplicate Order): aspirinchewable tablet 324 mg PO once; 81 mg tablets x 4 pablito 11:40 Drug: Rocephin IV 1 grams IV at per protocol once; Given slow IV push per pharmacy bp instructions Route: IV; Rate: per protocol; Site: right forearm; 11:40 Drug: Aspirin PO Chewable Tablet 81 mg PO once Route: PO; bp 11:41 Drug: Famotidine IVP 20 mg IVP once; dilute with 10 mL 0.9% NaCl; give over 2 minutes bp Route: IVP; Site: right forearm; Disposition Summary: 05/01/24 11:54 Hospitalization Ordered Notes: Hospitalization Status: Inpatient Admission pablito Provider: Liberty Lund cha Condition: Fair pablito Problem: new pablito Symptoms: have improved pablito Bed/Room Type: Standard pablito Location: [facility] ER HOLD(05/01/24 15:16) bp Room Assignment: ERHOLD-(05/01/24 15:16) bp Diagnosis - Chest pain, unspecified pablito - Aphasia - resolved 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 EDMS EDMS 08:29 08:29 CBC+H.LAB.BRZ ordered. EDMS EDMS 08:29 08:29 HEPATIC FUNCTION+C.LAB.BRZ ordered. EDMS EDMS 08:29 08:29 MAGNESIUM+C.LAB.BRZ ordered. EDMS EDMS 08:29 08:29 PROBNP+C.LAB.BRZ ordered. EDMS EDMS 08:29 08:29 PROTIME (+INR)+COAG.LAB.BRZ ordered. EDMS EDMS 08:29 08:29 Troponin High Sensitivity+C.LAB.BRZ ordered. EDMS EDMS 08:29 08:29 Urinalysis+U.LAB.BRZ ordered. EDMS EDMS 08:29 08:29 C-REACTIVE PROTEIN+C.LAB.BRZ ordered. EDMS EDMS 08:30 08:29 Chest Single View+RAD.RAD.BRZ ordered. EDMS EDMS 08:30 08:30 CT-STROKE BRAIN W/O CONTRAST+CT.RAD.BRZ ordered. EDMS EDMS 08:30 08:30 Head Angio+CT.RAD.BRZ ordered. EDMS EDMS 08:30 08:30 Neck Angio+CT.RAD.BRZ ordered. EDMS EDMS 08:30 08:30 MR STROKE PROTOCOL+MRI.RAD.BRZ ordered. EDMS EDMS 08:30 08:30 LIPASE+C.LAB.BRZ ordered. EDMS EDMS 15:16 11:54 Telemetry/MedSurg (Inpatient) pablito bp 15:16 11:54 pablito bp
--- NOTE | 2024-05-01 11:54 | ER ---
Nurse's Notes [facility] Name: Valerie Cantrell Age: 88 yrs Sex: Female : 1935 Arrival Date: 05/01/2024 Time: 08:18 Bed 8 Private MD: Diagnosis: Chest pain, unspecified;Aphasia-resolved;[employer] customer service (current) use of anticoagulants;UTI/ Urinary tract infection, site not specified Presentation: 05/01 08:36 Chief complaint: EMS states: pt c/o chest pain and NH staff reported pt had slurred iw speech this morning, went to bed around 10 pm last night , son states pt's speech is intermittently slurred, she has previous stroke. Coronavirus screen: At this time, the client does not indicate any symptoms associated with coronavirus-19. Ebola Screen: No symptoms or risks identified at this time. Initial Sepsis Screen: Does the patient meet any 2 criteria? No. Patient's initial sepsis screen is negative. Does the patient have a suspected source of infection? No. Patient's initial sepsis screen is negative. Risk Assessment: Do you want to hurt yourself or someone else? Patient reports no desire to harm self or others. 08:36 Method Of Arrival: EMS: [facility] iw 08:36 Acuity: HAI 3 iw 08:37 Onset of symptoms was May 01, 2024. iw Historical: - Allergies: 08:38 No Known Allergies; iw - PMHx: 08:37 Hypertension; neuropathy; stroke; Thyroid problem; iw - PSHx: 08:38 Colostomy; iw Screenin:[address] [facility] ED Fall Risk Assessment (Adult) History of falling in the last 3 months, bp including since admission No falls in past 3 months (0 pts) Confusion or Disorientation Yes (5 pts) Intoxicated or Sedated No (0 pts) Impaired Gait Yes (1 pt) Mobility Assist Device Used No (0 pt) Altered Elimination Yes (1 pt) Score/Fall Risk Level 3 or more points = High Risk Oriented to surroundings. Abuse screen: Denies threats or abuse. Denies injuries from another. Nutritional screening: No deficits noted. Tuberculosis screening: No symptoms or risk factors identified. Assessment: 08:43 General: Appears in no apparent distress. Behavior is calm, cooperative. Pain: iw Complains of pain in right arm and left arm Pain does not radiate. Pain began 1 day ago. Is continuous. Neuro: Level of Consciousness is awake, alert, obeys commands, Oriented to person, place, time, situation, Material Requirements Planning Manager are weak bilaterally Weakness in bilateral arm(s) leg(s). Cardiovascular: Denies chest pain, Patient's skin is warm and dry. Rhythm is regular. Respiratory: Respiratory effort is even, unlabored, Respiratory pattern is regular, symmetrical. GI: Colostomy site Ostomy appliance is intact. : Thomas in place to gravity drainage Urine is. Musculoskeletal: Range of motion: limited in all extremities. 09:12 Reassessment: pt remains in MRI. iw 09:52 Reassessment: Patient appears in no apparent distress at this time. Patient and/or iw family updated on plan of care and expected duration. Pain level reassessed. pt c/o pain in jesi legs. Vital Signs: 08:36 BP 137 / 94; Pulse 55; Resp 19; Temp 97.6; Pulse Ox 99% on R/A; iw 09:52 BP 156 / 69; Pulse 59; Resp 16; Pulse Ox 99% on R/A; Weight 57 kg; Height 5 ft. 3 in. ; bp 09:52 Body Mass Index 22.26 (57.00 kg, 160.02 cm) bp ED Course: 08:22 Patient arrived in ED. iw 08:26 James Jo MD is Attending Physician. pablito 08:31 Kuldeep Bradley, RN is Primary Nurse. bp 08:37 Triage completed. iw 08:39 Arm band placed on. iw 08:44 Patient has correct armband on for positive identification. Provided Education on: na. bp Client placed on continuous cardiac and pulse oximetry monitoring. NIBP monitoring applied. 08:44 Initial lab(s) drawn, by me, sent to lab. Urine collected: Thomas catheter specimen, bp clear. Inserted saline lock: 22 gauge in right forearm, using aseptic technique. Blood collected. Flushed with 10 mL NS. 08:52 CT Stroke Brain w/o Contrast In Process Unspecified. EDMS 08:53 CT Head Angio In Process Unspecified. EDMS 08:53 CT Neck Angio In Process Unspecified. EDMS 09:14 Brain Wo Cont In Process Unspecified. EDMS 09:46 XRAY Chest (1 view) In Process Unspecified. EDMS 11:50 Liberty Lund MD is Hospitalizing Provider. pablito 19:20 Patient being dc'd back to facility ( [facility] ) initiated transfer with max linares spoke with Cory he advised ETA 20 mins. Administered Medications: 09:50 Drug: foLIC Acid IVPB 1 mg IVPB once Route: IVPB; Site: right forearm; bp 09:50 Drug: NS 0.9% IV 1000 ml IV at 1000 ml once; to be given as a bolus over 60 minutes bp Route: IV; Rate: 1000 ml; Site: right forearm; 11:24 Not Given (Duplicate Order): aspirinchewable tablet 324 mg PO once; 81 mg tablets x 4 pablito 11:40 Drug: Rocephin IV 1 grams IV at per protocol once; Given slow IV push per pharmacy bp instructions Route: IV; Rate: per protocol; Site: right forearm; 11:40 Drug: Aspirin PO Chewable Tablet 81 mg PO once Route: PO; bp 11:41 Drug: Famotidine IVP 20 mg IVP once; dilute with 10 mL 0.9% NaCl; give over 2 minutes bp Route: IVP; Site: right forearm; Medication: 08:45 VIS not applicable for this client. iw Outcome: 11:54 Decision to Hospitalize by Provider. pablito 20:09 Patient left the ED. kd3 Signatures: Dispatcher [employer] EDMS James Jo MD MD cha Williams, Irene, RN Kuldeep Jackson RN RN Shabnam Eagle RN Tanya Lerner Corrections: (The following items were deleted from the chart) 08:37 08:36 Chief complaint: EMS states: pt c/o chest pain and NH staff reported pt had iw slurred speech this morning, went to bed around 10 pm last night iw 13:30 09:52 BP 156 / 69; Pulse 59bpm; Resp 16bpm; Pulse Ox 99% RA; iw bp
--- NOTE | 2024-05-01 12:39 | P.HP ---
Certification for Inpatient Patient admitted to: Observation Practitioner: I am a practitioner with admitting privileges, knowledge of patient current condition, hospital course, and medical plan of care. Services: Services provided to patient in accordance with Admission requirements found in Title 42 Section 412.3 of the Code of Federal Regulations Patient History Date of Service: 05/01/24 Reason for admission: Chest pain History of Present Illness: 88-year-old female with a past medical history of hypertension, neuropathy, CVA, hypothyroidism, history of recurrent UTIs, who presents to the emergency room with chest pain. Reports chest pain is substernal, does not radiate. She reports chest pain is improved, she denies fever, recent infection, shortness of breath. She reports hand numbness, she reports generalized weakness, tremors that are her baseline. Patient has an chronic indwelling Thomas catheter. ER evaluation shows acute cystitis, UA shows elevated leukoesterase, turbid urine, trace hematuria, CBC no leukocytosis, CMP mild hypokalemia, plan to admit for chest pain, acute cystitis, Allergies No Known Allergies Allergy (Verified 02/19/24 23:16) Home Medications: Amlodipine [Norvasc*] 5 mg PO BID tab 03/02/24 Apixaban [Eliquis *] 2.5 mg PO BID 03/02/24 Ascorbic Acid [Vitamin C*] 1,000 mg PO DAILY 03/02/24 Cholecalciferol (Vitamin D3) [Vitamin D 5,000 IU Cap*] 5,000 unit PO DAILY cap 03/02/24 Collagenase [Santyl Ointment*] 1 appl TOP DAILY tube 03/02/24 Docusate/Senna [Senokot-S*] 2 tab PO BEDTIME PRN tab 03/02/24 Duloxetine [Cymbalta *] 20 mg PO BID cap 03/02/24 Ensure Enlive 237 ml PO BID can 03/02/24 Ibuprofen [Motrin] 600 mg PO TID PRN tab 03/02/24 Levothyroxine [Synthroid*] 0.05 mg PO DAILYAC 03/02/24 Lidocaine 4% Patch [Lidoderm 5% Patch*] 2 patch TOP DAILY pat 03/02/24 Melatonin [Melatonin*] 3 mg PO BEDTIME PRN PRN 03/02/24 Nystatin Powder [Mycostatin (Powder)*] 1 appl TOP DAILY PRN bottle 03/02/24 Sennosides [Senna Lax] 8.6 mg PO DAILY #30 03/02/24 oxyBUTYnin chloride [Ditropan Xl*] 5 mg PO DAILY tab.sa 03/02/24 - Past Medical/Surgical History Diabetic: Yes -: HTN -: Stroke -: Thyroid problem -: Neuropathy -: neuropathy -: TUMOR REMOVAL NECK -: HYSTERECTOMY -: TUMOR REMOVAL OVARY -: LAMINECTOMY - Family History Mother -: Heart disease, Hypertension, Diabetes Father -: Heart disease Brother -: Cancer - Social History Alcohol use: No CD- Drugs: No Caffeine use: Yes Review of Systems 10-point ROS is otherwise unremarkable Physical Examination - Physical Exam General: Alert, In no apparent distress, Oriented x3 HEENT: Atraumatic, Normocephalic, PERRLA Neck: Supple, 2+ carotid pulse no bruit Respiratory: Normal air movement, Other (unlabored) Cardiovascular: No edema, Normal pulses, Regular rate/rhythm, Normal S1 S2 Gastrointestinal: Normal bowel sounds, Soft and benign Musculoskeletal: Other (Generalized weakness, tremors) Integumentary: No breakdown, No significant lesion Neurological: Normal speech, Normal strength at 5/5 x4 extr, Sensation intact Urinary: Other (Chronic indwelling Thomas cath) - Studies Laboratory Data (last 24 hrs) 05/01/24 05/01/24 05/01/24 08:42 08:42 08:42 WBC 4.70 Hgb 13.1 Hct 37.3 Plt Count 154 PT 13.7 H INR 1.21 Sodium 141 Potassium 3.1 L BUN 17 Creatinine 0.88 Glucose 240 H Magnesium 1.7 Total Bilirubin 0.5 AST 15 ALT < 14 Alkaline Phosphatase 85 Lipase 16 Assessment and Plan - Problems (Diagnosis) (1) Acute cystitis Current Visit: Yes Status: Acute (2) Chest pain Current Visit: No Status: Acute (3) Hypertension Onset Date: 06/10/14 Current Visit: No Status: Chronic (4) Hypothyroidism Onset Date: 06/10/14 Current Visit: No Status: Chronic (5) Neuropathy Current Visit: No Status: Chronic - Plan 88-year-old female with a past medical history of hypertension, neuropathy, CVA, hypothyroidism, history of recurrent UTIs, who presents to the emergency room with chest pain. Reports chest pain is substernal, does not radiate. She reports chest pain is improved, she denies fever, recent infection, shortness of breath. She reports hand numbness, she reports generalized weakness, tremors that are her baseline. Patient has an chronic indwelling Thomas catheter. ER evaluation shows acute cystitis, UA shows elevated leukoesterase, turbid urine, trace hematuria, CBC no leukocytosis, CMP mild hypokalemia, plan to admit for chest pain, acute cystitis, Assessment Chest pain, Long-term use of anticoagulant Hypertension Neuropathy History of CVA Hypothyroidism Resume appropriate home meds Trend troponin, troponins negative PT eval EKG 58 beats/min. Rhythm is regular. QRS [place] is Normal. [place] interval is normal. QRS interval is normal. QT interval is normal. No Q waves. T waves are Normal. No ST changes noted. Clinical impression: Sinus bradycardia. Reported aphasia Resolved Answering questions appropriately Acute cystitis History of recurrent UTI Chronic indwelling Thomas catheter IV antibiotics, IV fluids, Urine cultures, Chronic indwelling Thomas catheter Hypokalemia Trend electrolytes replace. Full code DVT SCDs Diet cardiac Disposition transition back to the nursing after discharge Discharge Plan: Residential - Advance Directives Does patient have a Living Will: No Does patient have a Durable POA for Healthcare: No
[2024-05-01] MEDS ORDERED: ACETAMINOPHEN 500 MG TAB PO PRN (12:50)
[2024-05-01] MEDS ORDERED: ONDANSETRON 4 MG/2 ML VIAL IV PRN (12:50)
[2024-05-01] MEDS ORDERED: NA CHLORIDE 0.9% 1,000 ML IV SCH (13:00)
[2024-05-01] MEDS ORDERED: MORPHINE 4 MG/ML SYR IV PRN (13:17)
[2024-05-01 13:31] VITALS: BMI 22.2
[2024-05-01] MEDS: CEFEPIME 1 GM in NA CHLORIDE 0.9% 100 ML IV SCH (14:00)
[2024-05-01 14:43] VITALS: O2SAT 98
[2024-05-01] MEDS ORDERED: CEFEPIME 1 GM/VIAL ONE (15:19)
[2024-05-01 20:25] VITALS: BP 156/69; TEMP 97.6
== END 2024-05-01 20:00 | disposition home or self-care (01) ==
LOC: ER 08:18 → ERHOLD 12:39
PROVIDERS: ADMIT Hospitalist; ATTEND Hospitalist
DX: R07.9 Chest pain, unspecified (principal); N30.01 Acute cystitis with hematuria; B96.1 Klebsiella pneumoniae [K. pneumoniae] as the cause of diseases classified elsewhere; I10 Essential (primary) hypertension; E03.9 Hypothyroidism, unspecified; E87.6 Hypokalemia; R47.01 Aphasia; G62.9 Polyneuropathy, unspecified; Z86.73 Personal history of transient ischemic attack (TIA), and cerebral infarction without residual deficits; Z87.440 Personal history of urinary (tract) infections; Z79.01 Long term (current) use of anticoagulants
CPT/HCPCS: 93005; 87088; 85025; 81001; 87086; 80048; 36415; 83735; 85610; 82565; 80076; 87077; 87186; 84484 ×3; 83690; 83880; 86140; 70496; 70498; 70450; 71045; 70551; 96375; 96374; 99284; Q9967; J7030 ×2; J0692; J0696; G0378 ×2

== ENCOUNTER 2024-06-10 11:13 | Emergency (ER) | payer OTHER ==
[2024-06-10 12:04] LABS: Absolute Eosinophils 0.1 K/uL (0-0.5); Absolute Lymphocytes (CBC) 0.7 K/uL (0.7-4.9); Absolute Monocytes 0.4 K/uL (0.1-1.3); Absolute Neutrophil 9.3 K/uL (1.8-8.0); Basophils % 0.1 % (0-1.3); Eosinophils % 1.1 % (0-4.4); Hematocrit 38.9 % (36.0-45.0); Hemoglobin 14.2 g/dL (12.0-15.0); Lymphocytes % 7.1 % (15.3-44.8); MCH 32.2 pg (27.0-35.0); MCHC 36.4 g/dL (32.0-36.0); MCV 88.4 fL (80-100); MPV 9.3 fL (7.6-11.3); Monocytes % 3.6 % (3.3-12.3); Neutrophils % 88.1 % (41.7-73.7); Platelets 125 thou/uL (152-406); RBC Red Blood Cell Count 4.41 M/uL (3.86-4.86); Red Cell Distribution Width 14.4 % (12.1-15.2)
[2024-06-10] MEDS ORDERED: NA CHLORIDE 0.9% 1,000 ML ONE (12:09)
[2024-06-10 12:39] LABS: Calcium Oxalate Crystals- Ur Few /HPF (None Seen); Specific Gravity 1.015 (1.005-1.030); Sqamous Epithelial <5 /HPF (None Seen); Urine Bacteria >50 /HPF (<20); Urine Bilirubin NEGATIVE (Negative); Urine Blood 3+ (OVER) (Negative); Urine Clarity Extremely Turbid (Clear); Urine Color Light-Orange (Yellow); Urine Culture Reflex Order REFLEXED; Urine Glucose NEGATIVE (Negative); Urine Ketones NEGATIVE (Negative); Urine Microscopic Reflex YN ORDER UMIC; Urine Mucus Slight /HPF (None Seen); Urine Nitrite NEGATIVE (Negative); Urine Protein 1+ (Negative); Urine RBC >50 /HPF (None Seen); Urine Urobilinogen Normal (Normal); Urine WBC >50 /HPF (<5); Urine pH 6.5 (5.0-7.0)
[2024-06-10 12:43] LABS: Albumin 3.2 g/dL (3.4-5.0); Albumin/Globulin Ratio 0.8 (1.1-1.8); Anion Gap 8.4 mEq/L (5.0-15.0); Bilirubin Total 0.7 mg/dL (0.2-1.0); Globulin 4.2 g/dL (2.3-3.5); Protein, Total 7.4 g/dL (6.4-8.2); Troponin High Sensitivity 12.1 pg/mL (<58.9)
[2024-06-10 12:44] LABS: Potassium 3.4 mEq/L (3.5-5.1)
--- NOTE | 2024-06-10 14:06 | RAD REPORT ---
EXAMINATION: CT ABDOMEN AND PELVIS WITH CONTRAST CLINICAL INDICATION: Abdominal pain. Vomiting TECHNIQUE: CT abdomen and pelvis was performed, after the administration of 100 cc Isovue-300.. Sagit luis and coronal reconstructions were obtained. One or more of the following dose reduction techniques were used: Automated exposure control, adjustment of the mA and kV according to patient si ze, and iterative reconstruction. Unless otherwise specified, incidental findings do not require dedicated imaging follow-up. [id number]. Oral contrast was not given which limits evaluation of bowel and appendix. COMPARISON: .2020 FINDINGS: Cirrhotic liver. Mild distention portal vein. A hepatic lesion is not seen. Cholecystectomy Spleen is mildly enlarged. Atrophic pancreas.: Adrenal glands unremarkable. Small renal cysts. Small left renal calculi. No hydronephrosis. Left renal cortical thinning perhaps secondary to prior inflammation. Thomas catheter within the bladder. Post surgical changes involve the colon. Left lower quadrant colostomy.. Most of the left colon has b een resected. A Prado's pouch is present. No obstruction. No evidence of diverticulitis/colitis. IMPRESSION: No acute abnormality displayed
--- NOTE | 2024-06-10 14:13 | ER ---
Nurse's Notes [facility] Name: Valerie Cantrell Age: 88 yrs Sex: Female : 1935 Arrival Date: 06/10/2024 Time: 11:13 Bed 5 Private MD: Diagnosis: Nausea with vomiting, unspecified;UTI/ Urinary tract infection, site not specified Presentation: 06/10 11:22 Chief complaint: EMS states: VOMITED ONCE YESTERDAY AT [facility]. NOW WITH bp MALFUNCTIONING COLOSTOMY. Coronavirus screen: At this time, the client does not indicate any symptoms associated with coronavirus-19. Ebola Screen: No symptoms or risks identified at this time. Initial Sepsis Screen: Does the patient meet any 2 criteria? No. Patient's initial sepsis screen is negative. Does the patient have a suspected source of infection? No. Patient's initial sepsis screen is negative. Risk Assessment: Do you want to hurt yourself or someone else? Patient reports no desire to harm self or others. Onset of symptoms is unknown. Care prior to arrival: Glucose check: 209. 11:22 Method Of Arrival: EMS: [facility] bp 11:22 Acuity: HAI 3 bp Triage Assessment: 11:23 General: Appears in no apparent distress. comfortable, Behavior is cooperative, bp appropriate for age, anxious. Pain: Complains of pain in abdomen. EENT: No deficits noted. Neuro: Level of Consciousness is awake, alert, obeys commands, Oriented to person. Cardiovascular: Rhythm is sinus rhythm. Respiratory: No deficits noted. GI: Reports lower abdominal pain. : Thomas in place. Derm: No deficits noted. Musculoskeletal: No deficits noted. Historical: - Allergies: 11:23 No Known Allergies; bp - PMHx: 11:23 Hypertension; neuropathy; stroke; Thyroid problem; bp - PSHx: 11:23 Colostomy; bp - Immunization history:: Adult Immunizations up to date. - Infectious Disease History:: Denies. - Family history:: not pertinent. - Social history:: Smoking status: Patient denies any tobacco usage or history of. Screenin:30 [facility] ED Fall Risk Assessment (Adult) History of falling in the last 3 months, bp including since admission No falls in past 3 months (0 pts) Confusion or Disorientation Yes (5 pts) Intoxicated or Sedated No (0 pts) Impaired Gait Yes (1 pt) Mobility Assist Device Used No (0 pt) Altered Elimination Yes (1 pt) Score/Fall Risk Level 3 or more points = High Risk Oriented to surroundings. Abuse screen: Denies threats or abuse. Denies injuries from another. Nutritional screening: No deficits noted. Tuberculosis screening: No symptoms or risk factors identified. Assessment: 11:30 General: Appears in no apparent distress. unkempt, Behavior is cooperative, anxious. bp 13:28 Reassessment: No changes from previously documented assessment. Patient is alert, bp oriented x 3, equal unlabored respirations, skin warm/dry/pink. 14:37 Reassessment: [facility] CONTACTED FOR DC, TRANSPORT PENDING. bp Vital Signs: 11:22 BP 114 / 79; Pulse 81; Resp 16; Temp 98; Pulse Ox 98% ; bp 13:27 BP 139 / 75; Pulse 73; Resp 16; Pulse Ox 95% ; bp 14:37 BP 146 / 73; Pulse 84; Resp 16; Pulse Ox 96% ; bp 15:28 BP 137 / 86; Pulse 102; Resp 16; Pulse Ox 96% on R/A; jb4 ED Course: 11:18 Patient arrived in ED. iw 11:18 Gabriel Davila MD is Attending Physician. rt 11:22 Kuldeep Bradley, KELSI is Primary Nurse. bp 11:23 Triage completed. bp 11:23 Arm band placed on. bp 11:54 Initial lab(s) drawn, by me, sent to lab. Urine collected: Thomas catheter specimen, bp cloudy. Inserted saline lock: 22 gauge in right forearm, using aseptic technique. Blood collected. Flushed with 10 mL NS. 13:29 Patient has correct armband on for positive identification. bp 13:49 CT Abd/Pelvis - IV Contrast Only In Process Unspecified. EDMS 13:58 Urine Culture Sent. bp 14:38 No provider procedures requiring assistance completed. IV discontinued, intact, bp bleeding controlled, No redness/swelling at site. Pressure dressing applied. Administered Medications: 12:16 Drug: NS 0.9% IV 1000 ml IV at 1 bolus Per protocol; to be given as a bolus over 60 bp minutes Route: IV; Rate: 1 bolus; Site: right forearm; 14:38 Follow up: IV Status: Completed infusion bp Medication: 14:39 VIS not applicable for this client. bp Outcome: 14:12 Discharge ordered by . rt 14:38 Discharged to [facility]. Report called to [facility] bp 14:38 Condition: stable 14:38 Discharge instructions given to [facility], Instructed on discharge instructions, follow up and referral plans. medication usage, Demonstrated understanding of instructions, follow-up care, medications, Prescriptions given X 2, 16:26 Patient left the ED. [id number] Signatures: Dispatcher [employer] EDFátima Yin RN RN Kenny Mckeon RN RN [id number] Kuldeep Bradley RN RN Tati Benson RN RN [id number] Gabriel Davila MD MD rt
--- NOTE | 2024-06-10 14:13 | EDPHYS ---
Physician Documentation [facility] Name: Valerie Cantrell Age: 88 yrs Sex: Female : 1935 Arrival Date: 06/10/2024 Time: 11:13 Bed 5 Private MD: ED Physician Gabriel Davila HPI: 06/10 11:21 This 88 yrs old Female presents to ER via Unassigned with complaints of rt vomiting. 11:21 Patient presents to the ED with several episodes of vomiting today. Last had vomiting rt Prior to EMSs arrival. Patient states that she had no abdominal pain, diarrhea, other symptoms. States that her nausea has sincestopped. Denies other acute complaints at this time, symptoms are moderate in severity, no other aggravating or alleviating factors.. Historical: - Allergies: 11: No Known Allergies; bp - PMHx: 11: Hypertension; neuropathy; stroke; Thyroid problem; bp - PSHx: 11:23 Colostomy; bp - Immunization history:: Adult Immunizations up to date. - Infectious Disease History:: Denies. - Family history:: not pertinent. - Social history:: Smoking status: Patient denies any tobacco usage or history of. ROS: 11:21 Constitutional: Negative for fever, chills, and weight loss, Cardiovascular: Negative rt for chest pain, palpitations, and edema, Respiratory: Negative for shortness of breath, cough, wheezing, and pleuritic chest pain, MS/Extremity: Negative for injury and deformity, Skin: Negative for injury, rash, and discoloration, Neuro: Negative for headache, weakness, numbness, tingling, and seizure, 11:21 Abdomen/GI: Positive for nausea and vomiting, Exam: 11:21 Constitutional: This is a well developed, well nourished patient who is awake, alert, rt and in no acute distress. Head/Face: Normocephalic, atraumatic. Chest/axilla: Normal chest wall appearance and motion. Nontender with no deformity. No lesions are appreciated. Cardiovascular: Regular rate and rhythm with a normal S1 and S2. No gallops, murmurs, or rubs. Normal PMI, no JVD. No pulse deficits. Respiratory: Lungs have equal breath sounds bilaterally, clear to auscultation and percussion. No rales, rhonchi or wheezes noted. No increased work of breathing, no retractions or nasal flaring. Skin: Warm, dry with normal turgor. Normal color with no rashes, no lesions, and no evidence of cellulitis. MS/ Extremity: Pulses equal, no cyanosis. Neurovascular intact. Full, normal range of motion. Neuro: Awake and alert, GCS 15, oriented to person, place, time, and situation. Cranial nerves II-XII grossly intact. Motor strength 5/5 in all extremities. Sensory grossly intact. Cerebellar exam normal. Normal gait. 11:21 Abdomen/GI: Colostomy bag in place with formed stool. Mild tenderness diffusely, no rebound, guarding, distention, 12:27 ECG was reviewed by the Attending Physician. rt Vital Signs: 11:22 BP 114 / 79; Pulse 81; Resp 16; Temp 98; Pulse Ox 98% ; bp 13:27 BP 139 / 75; Pulse 73; Resp 16; Pulse Ox 95% ; bp 14:37 BP 146 / 73; Pulse 84; Resp 16; Pulse Ox 96% ; bp 15:28 BP 137 / 86; Pulse 102; Resp 16; Pulse Ox 96% on R/A; jb4 MDM: 11:18 Medical Screening Exam initiated rt 14:16 Differential Diagnosis Nausea, vomiting, gastroenteritis, bowel obstruction, UTI. Data rt reviewed: vital signs, nurses notes. Consideration of Admission/Observation Escalation of care including admission/observation considered. Nausea vomiting are well-controlled, no acute findings on CT scan, labs, will treat UTI, stable vital signs, does not require admission at this time return precautions discussed. I considered the following discharge prescriptions or medication management in the emergency department Medications were administered in the Emergency Department. See MAR. Independent interpretation of the following test(s) in the Emergency Department CT Scan: My interpretation is No bowel obstruction similar to potation CT scan images. Care significantly affected by the following chronic conditions: Hypertension. Counseling: I had a detailed discussion with the patient and/or guardian regarding the historical points, exam findings, and any diagnostic results supporting the discharge/admit diagnosis, lab results, radiology results, the need for outpatient follow up, to return to the emergency department if symptoms worsen or persist or if there are any questions or concerns that arise at home. Response to treatment: the patient's symptoms have markedly improved after treatment. 06/10 11:19 Order name: CBC with Diff; Complete Time: 13:27 rt 06/10 11:19 Order name: CMP; Complete Time: 13:27 rt 06/10 11:19 Order name: Lipase; Complete Time: 13:27 rt 06/10 11:19 Order name: Urinalysis w/ reflexes; Complete Time: 13:27 rt 06/10 11:19 Order name: Troponin High Sensitivity; Complete Time: 13:27 rt 06/10 12:42 Order name: Urine Culture EDMS 06/10 11:19 Order name: CT Abd/Pelvis - IV Contrast Only; Complete Time: 14:07 rt 06/10 11:19 Order name: EKG; Complete Time: 11:20 rt 06/10 11:19 Order name: IV Saline Lock; Complete Time: 11:54 rt 06/10 11:19 Order name: Labs collected and sent; Complete Time: 11:54 rt 06/10 11:19 Order name: EKG - Nurse/Tech; Complete Time: 12:16 rt EC:27 Rate is 81 beats/min. Rhythm is regular, Normal Sinus Rhythm with Occasional PVCs, rt Right bundle branch block. QRS [place] is Normal. [place] interval is normal. QRS interval is normal. QT interval is normal. No Q waves. Administered Medications: 12:16 Drug: NS 0.9% IV 1000 ml IV at 1 bolus Per protocol; to be given as a bolus over 60 bp minutes Route: IV; Rate: 1 bolus; Site: right forearm; 14:38 Follow up: IV Status: Completed infusion bp Disposition Summary: 06/10/24 14:12 Discharge Ordered Notes: Location: Home rt Problem: new rt Symptoms: have improved rt Condition: Stable rt Diagnosis - Nausea with vomiting, unspecified rt - UTI/ Urinary tract infection, site not specified rt Followup: rt - With: Private Physician - When: 2 - 3 days - Reason: Discharge Instructions: - Discharge Summary Sheet rt - Nausea and Vomiting, Adult rt - Urinary Tract Infection, Adult rt Forms: - Medication Reconciliation Form rt - Antibiotic Education rt - Prescription Opioid Use rt - Patient Portal Instructions rt - Leadership Thank You Letter rt Prescriptions: - ondansetron 4 mg Oral Tablet,disintegrating - take 1 tablet ORAL route every 6 hours; 15 tablet; Refills: 0, Product rt Selection Permitted - cefpodoxime 200 mg Oral tablet - take 1 tablet ORAL route every 12 hours with food; 14 tablet; Refills: 0, rt Product Selection Permitted Signatures: Dispatcher [facility] EDKuldeep Donahue RN RN bp Gabriel Davila MD MD rt Corrections: (The following items were deleted from the chart) 11:20 11:20 CBC+H.LAB.BRZ ordered. EDMS EDMS 11:20 11:20 COMPREHENSIVE METABOLIC PANEL+C.LAB.BRZ ordered. EDMS EDMS 11:20 11:20 LIPASE+C.LAB.BRZ ordered. EDMS EDMS 11:20 11:20 Urinalysis+U.LAB.BRZ ordered. EDMS EDMS 11:20 11:20 Troponin High Sensitivity+C.LAB.BRZ ordered. EDMS EDMS
[2024-06-10 16:41] VITALS: TEMP 98
[2024-06-10 16:44] VITALS: O2SAT 96
[2024-06-10 16:45] VITALS: BP 137/86
== END 2024-06-10 16:26 | disposition home or self-care (01) ==
LOC: ER 11:13
DX: N39.0 Urinary tract infection, site not specified (principal); Z93.3 Colostomy status
CPT/HCPCS: 87088; 85025; 81001; 87086; 36415; 84484; 83690; 80053; 74177; Q9967; J7030; 93005

== ENCOUNTER 2024-11-27 21:25 | Inpatient (IN) | payer OTHER ==
--- NOTE | 2024-11-27 22:11 | RAD REPORT ---
EXAM: Chest Single View HISTORY: 89 years Female altered mental status COMPARISON: 08/29/2024 FINDINGS: LUNGS/PLEURA: The lungs are clear. No pleural effusions or pneumothorax. No pulmonary edema. CARDIAC/MEDIASTINUM: The cardiac silhouette is within normal limits. UPPER ABDOMEN: No significant abnormality. BONES: No acute abnormality. LINES/TUBES/OTHER: N/A IMPRESSION: No evidence of acute cardiopulmonary disease.
[2024-11-27 22:12] LABS: Absolute Lymphocytes (CBC) 1.2 K/uL (0.7-4.9); Hematocrit 34.4 % (36.0-45.0); Hemoglobin 11.9 g/dL (12.0-15.0); MCH 31.3 pg (27.0-35.0); MCHC 34.6 g/dL (32.0-36.0); MCV 90.3 fL (80-100); MPV 8.7 fL (7.6-11.3); Nucleated RBC Absolute Count 0.0 (0-0); Nucleated Red Blood Cells % 0.1 % (0-0); RBC Red Blood Cell Count 3.82 M/uL (3.86-4.86); White Blood Count 4.70 thou/uL (4.3-10.9)
[2024-11-27 22:26] LABS: PT Prothrombin Time 19.7 SECONDS (10-13.0); Protime INR 1.77
[2024-11-27 22:44] LABS: ALT/SGPT 19 U/L (13-56); AST/SGOT 20 U/L (15-37); Albumin 3.2 g/dL (3.4-5.0); Albumin/Globulin Ratio 0.8 (1.1-1.8); Alkaline Phosphatase 131 U/L (45-117); Anion Gap 6.1 mEq/L (5.0-15.0); BUN Blood Urea Nitrogen 41 mg/dL (7-18); Globulin 3.9 g/dL (2.3-3.5); Glucose Level 113 mg/dL (74-106); Magnesium 2.0 mg/dL (1.6-2.4); NT PRO-BNP 173 pg/mL (<450); Potassium 4.1 mEq/L (3.5-5.1); Troponin High Sensitivity 11.7 pg/mL (<58.9)
[2024-11-27 22:45] LABS: Bilirubin Indirect, Calculated 0.1 mg/dL (0.2-0.8)
[2024-11-27 23:13] LABS: Sqamous Epithelial <5 /HPF (None Seen); Urine Culture Reflex Order REFLEXED; Urine Microscopic Reflex YN ORDER UMIC; Urine WBC Clump Many /HPF (None Seen)
[2024-11-27] MEDS ORDERED: CEFTRIAXONE 1000 MG/VIAL ONE (23:44)
[2024-11-27] MEDS ORDERED: NA CHLORIDE 0.9% 500 ML ONE (23:44)
--- NOTE | 2024-11-28 01:22 | EDPHYS ---
Physician Documentation [facility] Name: Valerie Cantrell Age: 89 yrs Sex: Female : 1935 Arrival Date: 11/27/2024 Time: 21:25 Bed 13 Private MD: ED Physician Jimy Rea HPI: 11/27 21:35 This 89 yrs old Female presents to ER via EMS with complaints of Slurred cp Speech, Leg Pain. 21:35 The patient presents to the emergency department with altered mental status. cp 21:35 Onset: The symptoms/episode began/occurred at an unknown time. family report patient cp was last seen normal yesterday. 21:35 Patient's baseline: Neuro: alert and fully oriented, Motor: no deficits, Ambulation: cp unable to walk, is bedridden, Speech: normal. Current symptoms: confusion. Historical: - Allergies: 21:37 No Known Allergies; ss12 - Home Meds: 21:37 acetaminophen 500 mg oral tablet 1 tab twice a day [Active]; amlodipine 5 mg tablet 1 ss12 tab twice a day [Active]; apixaban 2.5 mg Oral tablet 2 times per day [Active]; ascorbic acid (vitamin C) 500 mg tablet 2 times per day [Active]; Benadryl Allergy 25 mg oral tablet 1 tab [Active]; zinc oxide Topical ointment [Active]; gabapentin 300 mg Oral capsule every day at bedtime [Active]; ibuprofen 200 mg oral tablet 1 tab every 8 hrs PRN [Active]; Levoxyl 50 mcg Oral tablet daily [Active]; ipratropium bromide inhalation 0.5-2.5 (3ML) q8hr prn for SOB [Active]; montelukast 10 mg oral tablet 1 tab once daily [Active]; ondansetron 4 mg oral Tablet,disintegrating 1 tab PRN [Active]; paroxetine HCl 10 mg oral tablet 1 tab daily [Active]; senna 8.6 mg Oral tablet daily [Active]; simethicone 80 mg Oral tablet,chewable Q4H PRN [Active]; duloxetine 40 mg Oral Capsule daily [Active]; Vitamin D Oral daily [Active]; ProSource 10-100 gram-kcal/30 mL Oral liquid twice a day [Active]; zinc sulfate 50 mg zinc (220 mg) Oral capsule daily [Active]; - PMHx: 21:37 Anxiety; depressive disorder; stroke; Hypertension; neuropathy; sacral wound ss12 (Hypertension); Thyroid problem; vaginitis; Transient cerebral ischemia; urinary tract infections; neuropathic bladder; Hypothyroidism; unsepcified lack of coordination; polyneuropathy; hemiplegia left side; memory deficit following CVA; 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 - Infectious Disease History:: Denies. - Social history:: Smoking status: Patient denies any tobacco usage or history of. ROS: 21:40 Constitutional: Negative for body aches, chills, fever, poor PO intake, cp 21:40 Eyes: Negative for injury, pain, redness, and discharge, cp 21:40 Cardiovascular: Negative for chest pain, 21:40 Respiratory: Negative for cough, shortness of breath, wheezing, 21:40 Abdomen/GI: Negative for vomiting, diarrhea, constipation, 21:40 Neuro: Positive for altered mental status, 21:40 All other systems are negative, Exam: 21:45 Constitutional: The patient appears in no acute distress, alert, awake, cp non-diaphoretic, non-toxic, well developed, frail, 21:45 Head/Face: Normocephalic, atraumatic. cp 21:45 Eyes: Periorbital structures: appear normal, Pupils: equal, round, and reactive to light and accomodation, Extraocular movements: intact throughout, Conjunctiva: normal, no exudate, no injection, Sclera: no appreciated abnormality, Lids and lashes: appear normal, bilaterally, 21:45 ENT: External ear(s): are unremarkable, Nose: is normal, Mouth: Lips: dry, Oral mucosa: moist, Posterior pharynx: Airway: no evidence of obstruction, patent, 21:45 Neck: ROM/movement: Meningeal signs: are not present, nuchal rigidity, is not appreciated, 21:45 Chest/axilla: Inspection: normal, Palpation: is normal, no crepitus, no tenderness, 21:45 Cardiovascular: Rate: normal, Rhythm: regular, Edema: is not appreciated, JVD: is not appreciated, 21:45 Respiratory: the patient does not display signs of respiratory distress, Respirations: normal, no use of accessory muscles, no retractions, labored breathing, is not present, Breath sounds: are clear throughout, no decreased breath sounds, no stridor, no wheezing, 21:45 Abdomen/GI: Inspection: abdomen appears normal, colostomy LLQ, Bowel sounds: active, all quadrants, Palpation: soft, in all quadrants, mild abdominal tenderness, in all quadrants, 21:45 Skin: chronic wound buttocks. 21:45 Neuro: Orientation: to person, situation, Mentation: able to follow commands, Motor: moves all fours, no focal deficits, 21:47 ECG was reviewed by the Attending Physician. Vital Signs: 22:00 BP 112 / 82; Pulse 67; Resp 16; Pulse Ox 100% on R/A; [facility] 22:09 Weight 51.26 kg; Height 5 ft. 5 in. ; [facility] 23:00 BP 117 / 56; Pulse 49; Resp 16; Pulse Ox 100% on R/A; [facility] 11/28 00:00 BP 123 / 81 (man/); Pulse 55; Resp 17; Pulse Ox 100% on R/A; 12 01:09 BP 115 / 81; Pulse 53; Resp 16; Pulse Ox 97% on R/A; [facility] 02:00 BP 148 / 48; Pulse 52; Resp 16; Pulse Ox 100% on R/A; [facility] 10 22:09 Body Mass Index 18.80 (51.26 kg, 165.1 cm) [facility] NIH Stroke Scale Scores: 11/27 21:28 NIHSS Score: 2 [facility] MDM: 21:29 Medical Screening Exam initiated 11/28 01:45 Data reviewed: vital signs, nurses notes, lab test result(s), EKG, radiologic studies, cp CT scan, plain films, and as a result, I will admit patient. 01:45 Management of patient was discussed with the following: Hospitalist: MR Weathers RESPITE WORKER will cp admit after discussion. I considered the following discharge prescriptions or medication management in the emergency department Medications were administered in the Emergency Department. See MAR. Counseling: I had a detailed discussion with the patient and/or guardian regarding the historical points, exam findings, and any diagnostic results supporting the discharge/admit diagnosis, lab results, the need for further work-up and treatment in the hospital. Response to treatment: the patient's symptoms have mildly improved after treatment, and as a result, I will admit patient. 11/27 21:31 Order name: UA Rfx Poli Cult if indicated; Complete Time: 23:17 cp 11/27 23:17 Interpretation: Normal except: [facility] Extremely Turbid; UBLD 2+; UPROT 1+; UESTR 500; cp UWBC >50; URBC 21-50; UWBC Clump Many. 11/27 21:31 Order name: Lactate w/ 2H reflex if indic.; Complete Time: 23:17 cp 11/27 21:31 Order name: Basic Metabolic Panel; Complete Time: 23:17 cp 11/27 23:18 Interpretation: Normal except: GLUC 113; BUN 41; GFR 65; CA 11.4. cp 11/27 21:31 Order name: CBC with Diff; Complete Time: 22:21 cp 11/27 22:21 Interpretation: Normal except: RBC 3.82; HGB 11.9; HCT 34.4; PLT 114. cp 11/27 21:31 Order name: LFT's; Complete Time: 23:17 cp 11/27 23:18 Interpretation: Normal except: ALK 131; IBILI, CALC 0.1; ALB 3.2; GLOB 3.9; A/G 0.8. cp 11/27 21:31 Order name: Magnesium; Complete Time: 23:17 cp 11/27 21:31 Order name: NT PRO-BNP; Complete Time: 23:17 cp 11/27 21:31 Order name: PT-INR; Complete Time: 23:17 cp 11/27 21:31 Order name: Troponin HS; Complete Time: 23:17 cp 11/27 23:16 Order name: Urine Culture EDMS 11/27 23:19 Order name: Blood Culture Adult (2) cp 11/28 01:42 Order name: Lipase cp 11/28 02:11 Order name: Wound Culture EDMS 11/28 02:22 Order name: UA Rfx Poli Cult if indicated EDMS 11/28 02:22 Order name: CBC with Automated Diff EDMS 11/28 02:22 Order name: CBC with Automated Diff EDMS 11/28 02:22 Order name: CBC with Automated Diff EDMS 11/28 02:22 Order name: CBC with Automated Diff EDMS 11/28 02:22 Order name: Comprehensive Metabolic Panel EDMS 11/28 02:22 Order name: Comprehensive Metabolic Panel EDMS 11/28 02:22 Order name: Comprehensive Metabolic Panel EDMS 11/28 02:22 Order name: Comprehensive Metabolic Panel EDMS 11/28 02:22 Order name: Magnesium EDMS 11/28 02:22 Order name: Magnesium EDMS 11/28 02:22 Order name: Magnesium EDMS 11/28 02:23 Order name: Magnesium EDMS 11/28 02:23 Order name: Phosphorus EDMS 11/28 02:23 Order name: Phosphorus EDMS 11/28 02:23 Order name: Phosphorus EDMS 11/28 02:23 Order name: Phosphorus EDMS 11/27 21:31 Order name: XRAY Chest (1 view); Complete Time: 22:21 cp 11/27 23:19 Order name: CT Head Brain wo Cont cp 11/27 23:19 Order name: CT Chest, Abdomen, Pelvis - W/Contrast cp 11/28 02:10 Order name: Carotid Artery Bilateral EDMS 11/28 02:10 Order name: Carotid Artery Bilateral EDMS 11/28 02:10 Order name: Extrem Venous W Compress Cj EDMS 11/28 02:10 Order name: Extrem Venous W Compress Cj EDMS 11/27 21:31 Order name: EKG; Complete Time: 21:32 cp 11/28 02:07 Order name: [facility] Cons EDMS 11/28 02:22 Order name: Physical Therapy Consult EDMS 11/27 21:31 Order name: Cardiac monitoring; Complete Time: 21:50 cp 11/27 21:31 Order name: EKG - Nurse/Tech; Complete Time: 21:50 cp 11/27 21:31 Order name: IV Saline Lock; Complete Time: 22:22 cp 11/27 21:31 Order name: Labs collected and sent; Complete Time: 22:22 cp 11/27 21:31 Order name: O2 Per Protocol; Complete Time: 22:22 cp 11/27 21:31 Order name: O2 Sat Monitoring; Complete Time: 22:22 cp EC/03 21:47 Rate is 54 beats/min. Rhythm is regular. [place] interval is normal. QRS interval is cp prolonged at 122 msec. QT interval is normal. T waves are Inverted in lead aVR. Interpreted by me. Reviewed by me. Administered Medications: 11/28 00:00 Drug: NS 0.9% IV 500 ml 500 ml IV at 1 bolus once; to be given as a bolus over 60 ss12 minutes Volume: 500 ml; Route: IV; Rate: 1 bolus; Site: right forearm; 00:00 Drug: Rocephin IV 1 grams IV at calculated rate once; Given slow IV push per pharmacy ss12 instructions Route: IV; Rate: calculated rate; Site: right forearm; 01:51 Drug: fentaNYL (PF) IVP 25 mcg IVP once Route: IVP; Site: right forearm; ss12 02:30 Follow up: Response: No adverse reaction; Pain is decreased ss12 Point of Care Testing: Blood Glucose: 11/27 22:30 Blood Glucose: 113 mg/dL; ss12 Ranges: Critical Glucose Levels:Adult <50 mg/dl or >400 mg/dl <40 mg/dl or >180 mg/dl Disposition Summary: 11/28/24 01:22 Hospitalization Ordered Notes: Hospitalization Status: Inpatient Admission cp Provider: Albin Weathers cp Location: Telemetry/[facility] (Inpatient) cp Condition: Stable cp Problem: new cp Symptoms: have improved cp Bed/Room Type: Standard cp Room Assignment: 219(11/28/24 02:11) vk Diagnosis - Pyelonephritis acute cp - Altered mental status, unspecified cp Forms: - Medication Reconciliation Form cp - SBAR form cp - Leadership Thank You Letter NIH Stroke Scale - NIH Stroke Score Date: 11/27/2024 Time: 21:28 Total Score = 2 10. Dysarthria (speech clarity - read or repeat words) - 0(Normal) 11. Extinction and Inattention (visual/tactile/auditory/spatial/personal) - 0(No abnormality) 1a. Level of Consciousness (LOC) - 0(Alert) 1b. Level of Consciousness (LOC) (Month \T\ Age) - 2(Neither) 1c. LOC Commands (Open \T\ Closes Eyes/[employer] Field Assistant) - 0(Both) 2. Best Gaze (Lateral Gaze Paresis) - 0(Normal) 3. Visual Field Loss - 0(No visual loss) 4. Facial Palsy - 0(Normal) 5a. Left Arm: Motor (10-second hold) - 0(No drift) 5b. Right Arm: Motor (10-second hold) - 0(No drift) 6a. Left Leg: Motor (5-second hold - always test supine) - 0(No drift) 6b. Right Leg: Motor (5-second hold - always test supine) - 0(No drift) 7. Limb Ataxia (finger/nose \T\ heel/sosa - test with eyes open) - 0(Absent) 8. Sensory Loss (pinprick arms/legs/face) - 0(Normal) 9. Best Language: Aphasia (description/naming/reading) - 0(No aphasia) Initials: candelaria Addendum: 12/01/2024 09:05 Co-signature as Attending Physician, Jimy MULLINS reviewed the tt7 patient's care provided by the Advanced Practice Provider and agree with the diagnosis and treatment plan. Signatures: Dispatcher [employer] EDMS James Graham PA-C PA-C cp Kruse, Vivian vk Shamaila, Shamaila RN RN ss12 Jimy Rea DO DO tt7 Corrections: (The following items were deleted from the chart) 11/27 23:20 23:20 Head Brain Wo Cont+CT.RAD.BRZ ordered. EDMS EDMS 23:20 23:20 Chest Abdomen Pelvis W Con+CT.RAD.BRZ ordered. EDMS EDMS 11/28 02:11 01:22 cp max
--- NOTE | 2024-11-28 01:22 | ER ---
Nurse's Notes [facility] Name: Valerie Cantrell Age: 89 yrs Sex: Female : 1935 Arrival Date: 11/27/2024 Time: 21:25 Bed 13 Private MD: Diagnosis: Pyelonephritis acute;Altered mental status, unspecified Presentation: 11/27 21:28 Chief complaint: EMS states: Pt from [facility]. Sent by EMS for having slurred 12 speech and uncontrollable pain since couple days. EMS stated patient baseline is Alert and oriented. pt has hx of TIA. Pt vitals with EMS 133/70,P 73, 100 RA and in SR. Coronavirus screen: Client denies travel out of the [place] in the last 14 days. At this time, the client does not indicate any symptoms associated with coronavirus-19. Ebola Screen: Patient negative for fever greater than or equal to 101.5 degrees Fahrenheit, and additional compatible Ebola Virus Disease symptoms Patient denies exposure to infectious person. Patient denies travel to an Ebola-affected area in the 21 days before illness onset. No acute neurological deficit is noted. Initial Sepsis Screen: Does the patient meet any 2 criteria? No. Patient's initial sepsis screen is negative. Does the patient have a suspected source of infection? No. Patient's initial sepsis screen is negative. Risk Assessment: Do you want to hurt yourself or someone else? Patient reports no desire to harm self or others. Onset of symptoms. 21:28 Method Of Arrival: EMS: [facility] 21:28 Acuity: HAI 3 ss12 21:28 No acute neurological deficit is noted. The patients blood glucose was checked before ss12 arriving to the hospital and was found to be normal. Triage Assessment: 21:28 The onset of the patients symptoms was more than six hours ago. General: Appears in no ss12 apparent distress. comfortable, Behavior is calm, cooperative, quiet. Pain: Complains of pain in lower legs Pain does not radiate. Pain Unable to use pain scale. EENT: No deficits noted. No signs and/or symptoms were reported regarding the EENT system. Neuro: Level of Consciousness is awake, confused, Oriented to place. Neuro: Reports pain in lower back and lower legs. Cardiovascular: No deficits noted. Capillary refill < 3 seconds Patient's skin is warm and dry. Respiratory: No deficits noted. Airway is patent. GI: No deficits noted. No signs and/or symptoms were reported involving the gastrointestinal system. colostomy in place. : No deficits noted. Thomas in place urine seems slightly cloudy. Derm: No deficits noted. Skin is intact, Skin is dry, Skin is pink, warm \T\ dry. normal. Musculoskeletal: No deficits noted. No signs and/or symptoms reported regarding the musculoskeletal system. Stroke Activation: Physician: ED Attending; Name: ; Notified At: ; Arrived At: Physician: Mid-Level Provider; Name: ; Notified At: ; Arrived At: Physician: [not used]; Name: ; Notified At: ; Arrived At: Physician: [not used]; Name: ; Notified At: ; Arrived At: Physician: [not used]; Name: ; Notified At: ; Arrived At: 21:28 pt been having confusion slurred speech for the past two days. 12 Historical: - Allergies: 21:37 No Known Allergies; ss12 - Home Meds: 21:37 acetaminophen 500 mg oral tablet 1 tab twice a day [Active]; amlodipine 5 mg tablet 1 ss12 tab twice a day [Active]; apixaban 2.5 mg Oral tablet 2 times per day [Active]; ascorbic acid (vitamin C) 500 mg tablet 2 times per day [Active]; Benadryl Allergy 25 mg oral tablet 1 tab [Active]; zinc oxide Topical ointment [Active]; gabapentin 300 mg Oral capsule every day at bedtime [Active]; ibuprofen 200 mg oral tablet 1 tab every 8 hrs PRN [Active]; Levoxyl 50 mcg Oral tablet daily [Active]; ipratropium bromide inhalation 0.5-2.5 (3ML) q8hr prn for SOB [Active]; montelukast 10 mg oral tablet 1 tab once daily [Active]; ondansetron 4 mg oral Tablet,disintegrating 1 tab PRN [Active]; paroxetine HCl 10 mg oral tablet 1 tab daily [Active]; senna 8.6 mg Oral tablet daily [Active]; simethicone 80 mg Oral tablet,chewable Q4H PRN [Active]; duloxetine 40 mg Oral Capsule daily [Active]; Vitamin D Oral daily [Active]; ProSource 10-100 gram-kcal/30 mL Oral liquid twice a day [Active]; zinc sulfate 50 mg zinc (220 mg) Oral capsule daily [Active]; - PMHx: 21:37 Anxiety; depressive disorder; stroke; Hypertension; neuropathy; sacral wound ss12 (Hypertension); Thyroid problem; vaginitis; Transient cerebral ischemia; urinary tract infections; neuropathic bladder; Hypothyroidism; unsepcified lack of coordination; polyneuropathy; hemiplegia left side; memory deficit following CVA; 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 - Infectious Disease History:: Denies. - Social history:: Smoking status: Patient denies any tobacco usage or history of. Screenin:00 Tuberculosis screening: No symptoms or risk factors identified. ss12 11/28 00:42 [facility] ED Fall Risk Assessment (Adult) History of falling in the last 3 months, ss12 including since admission No falls in past 3 months (0 pts) Confusion or Disorientation Yes (5 pts) Intoxicated or Sedated No (0 pts) Impaired Gait No (0 pts) Mobility Assist Device Used No (0 pt) Altered Elimination No (0 pt) Score/Fall Risk Level. Abuse screen: Denies threats or abuse. Denies injuries from another. Nutritional screening: No deficits noted. Assessment: 11/27 21:28 Reassessment: see triage assessment. ss12 21:28 VAN Scoring: Arm Drift: Patients demonstrates NO arm weakness. Patient is VAN Negative. ss12 Visual Disturbance: No visual disturbance noted. Aphasia: No aphasia noted. Neglect: No neglect noted. [place] [facility] Protocol. 21:28 TNKase (Tenecteplase) Screening: Not Applicable. 12 22:30 Reassessment: Patient appears in no apparent distress at this time. Patient and/or ss12 family updated on plan of care and expected duration. Pain level reassessed. Patient is alert, oriented x 3, equal unlabored respirations, skin warm/dry/pink. 11/28 00:00 Reassessment: stage 4 pressure ulcer noted on left buttock 2x2x1. no foul smell noted. ss12 Dressing changed. pt changed and reposition to off load left buttock. 00:30 Reassessment: Patient appears in no apparent distress at this time. Patient and/or ss12 family updated on plan of care and expected duration. Pain level reassessed. Patient is alert, oriented x 3, equal unlabored respirations, skin warm/dry/pink. 00:43 [place] [facility] Protocol Oral Mechanism Examination. ss12 01:00 [place] [facility] Protocol Result: PASS MD Notified: James Graham PA-C. ss12 01:30 Reassessment: Patient appears in no apparent distress at this time. Patient and/or ss12 family updated on plan of care and expected duration. Pain level reassessed. Patient is alert, oriented x 3, equal unlabored respirations, skin warm/dry/pink. 02:30 Reassessment: Patient appears in no apparent distress at this time. Patient and/or ss12 family updated on plan of care and expected duration. Pain level reassessed. Patient is alert, oriented x 3, equal unlabored respirations, skin warm/dry/pink. 03:02 Reassessment: Patient appears in no apparent distress at this time. Patient and/or ss12 family updated on plan of care and expected duration. Pain level reassessed. Patient is alert, oriented x 3, equal unlabored respirations, skin warm/dry/pink. 03:05 [place] [facility] Protocol 3 oz Water Swallow Challenge: Pt able to drink all water without ss12 stopping, coughing, choking or throat clearing:. 03:06 [place] [facility] Protocol Brief Cognitive Screen What is your name? Normal, Where are you ss12 right now? Normal, What year is it? Abnormal. Vital Signs: 11/27 22:00 BP 112 / 82; Pulse 67; Resp 16; Pulse Ox 100% on R/A; ss12 22:09 Weight 51.26 kg; Height 5 ft. 5 in. ; ss12 23:00 BP 117 / 56; Pulse 49; Resp 16; Pulse Ox 100% on R/A; 12 11/28 00:00 BP 123 / 81 (man/); Pulse 55; Resp 17; Pulse Ox 100% on R/A; ss12 01:09 BP 115 / 81; Pulse 53; Resp 16; Pulse Ox 97% on R/A; ss12 02:00 BP 148 / 48; Pulse 52; Resp 16; Pulse Ox 100% on R/A; 12 11/27 22:09 Body Mass Index 18.80 (51.26 kg, 165.1 cm) ss12 NIH Stroke Scale Scores: 11/27 21:28 NIHSS Score: 2 ss12 ED Course: 21:28 Patient arrived in ED. vk 21:29 Jimy Rea DO is Attending Physician. tt7 21:29 James Graham PA-C is PHCP. cp 21:29 Jimy Rea DO is Attending Physician. cp 21:31 Harlan Claros, RN is Primary Nurse. ss12 21:48 EKG done, by ED staff, reviewed by James Graham PA-C. oe 21:49 Warm blanket given. oe 21:56 XRAY Chest (1 view) In Process Unspecified. EDMS 22:10 Inserted saline lock: 22 gauge in right forearm, using aseptic technique. Blood oe collected. Flushed with 10 mL NS. 11/28 00:03 Blood Culture Adult (2) Sent. oe 00:13 CT Head Brain wo Cont In Process Unspecified. EDMS 00:17 CT Chest, Abdomen, Pelvis - W/Contrast In Process Unspecified. EDMS 00:46 Triage completed. ss12 01:21 Albin Weathers, RN is Hospitalizing Provider. cp 02:22 No provider procedures requiring assistance completed. tb4 02:55 Patient admitted, IV remains in place. ss12 03:05 Arm band placed on right wrist. ss12 03:05 Provided Education on: plan of care. ss12 03:07 Patient has correct armband on for positive identification. ss12 Administered Medications: 00:00 Drug: NS 0.9% IV 500 ml 500 ml IV at 1 bolus once; to be given as a bolus over 60 ss12 minutes Volume: 500 ml; Route: IV; Rate: 1 bolus; Site: right forearm; 00:00 Drug: Rocephin IV 1 grams IV at calculated rate once; Given slow IV push per pharmacy ss12 instructions Route: IV; Rate: calculated rate; Site: right forearm; 01:51 Drug: fentaNYL (PF) IVP 25 mcg IVP once Route: IVP; Site: right forearm; 12 02:30 Follow up: Response: No adverse reaction; Pain is decreased ss12 Medication: 11/27 22:00 VIS not applicable for this client. ss12 Point of Care Testing: Blood Glucose: 22:30 Blood Glucose: 113 mg/dL; 12 Ranges: Outcome: 11/28 01:22 Decision to Hospitalize by Provider. cp 03:08 Patient left the ED. vk 03:09 Admitted to Med/surg accompanied by tech, via stretcher, room 219, with chart, ha1 03:09 Condition: stable 03:09 Instructed on the need for admit, Demonstrated understanding of instructions, NIH Stroke Scale - NIH Stroke Score Date: 11/27/2024 Time: 21:28 Total Score = 2 10. Dysarthria (speech clarity - read or repeat words) - 0(Normal) 11. Extinction and Inattention (visual/tactile/auditory/spatial/personal) - 0(No abnormality) 1a. Level of Consciousness (LOC) - 0(Alert) 1b. Level of Consciousness (LOC) (Month \T\ Age) - 2(Neither) 1c. LOC Commands (Open \T\ Closes Eyes/Reinstatement Clerk) - 0(Both) 2. Best Gaze (Lateral Gaze Paresis) - 0(Normal) 3. Visual Field Loss - 0(No visual loss) 4. Facial Palsy - 0(Normal) 5a. Left Arm: Motor (10-second hold) - 0(No drift) 5b. Right Arm: Motor (10-second hold) - 0(No drift) 6a. Left Leg: Motor (5-second hold - always test supine) - 0(No drift) 6b. Right Leg: Motor (5-second hold - always test supine) - 0(No drift) 7. Limb Ataxia (finger/nose \T\ heel/sosa - test with eyes open) - 0(Absent) 8. Sensory Loss (pinprick arms/legs/face) - 0(Normal) 9. Best Language: Aphasia (description/naming/reading) - 0(No aphasia) Initials: ss12 Signatures: Dispatcher [employer] EDMS James Graham PA-C PA-C cp Espinosa, Orlando oe Ayala, Heidy, RN RN ha1 Tanya Stark Terri, RN RN tb4 Harlan Claros RN RN ss12 Jimy Rea DO DO tt7 Corrections: (The following items were deleted from the chart) 03:07 03:06 [place] [facility] Protocol Exclusion Criteria: ss12 ss12 03:13 03:12 Patient transferred, IV remains in place. ss12 ss12
--- NOTE | 2024-11-28 01:30 | RAD REPORT ---
EXAM: CT Head Without Intravenous Contrast CLINICAL HISTORY: The patient is 89 years old and is Female; Altered mental status. TECHNIQUE: Axial computed tomography images of the head/brain without intravenous contrast. Sagittal and cor onal reformatted images were created and reviewed. This CT exam was performed using one or more of the following dose reduction techniques: automated exposure control, adjustment of the mA and/or kV according to patient size, and/or use of iterative reconstruction technique. COMPARISON: MR Brain 08/31/2024, CT Head 08/26/2024 report only. FINDINGS: BRAIN: Cortical volume loss. Areas of diminished attenuation in the bilateral white matter are no nspecific but most consistent with chronic microvascular ischemic changes. No hemorrhage. VENTRICLES: Unremarkable. No ventriculomegaly. BONES/JOINTS: Unremarkable. No acute fracture. SOFT TISSUES: Unremarkable. VASCULATURE: Scattered vascular calcifications. SINUSES: Unremarkable as visualized. No acute sinusitis. MASTOID AIR CELLS: Unremarkable as visualized. No mastoid effusion. IMPRESSION: Chronic appearing findings. Consider MRI if symptoms persist. Electronically signed by: Albin Patricia MD 11/28/2024 12:41 AM CDT Due to temporary technical issues with the PACS/NuPathe reporting system, reports are being aamir d by the in-house radiologist without review as a courtesy to ensure prompt reporting the interpreting radiologist is fully responsible for the content of the report. Transcribed Date/Time: 11/28/2024 1:30 AM
--- NOTE | 2024-11-28 01:31 | RAD REPORT ---
INDICATION: abdomen pain, AMS COMPARISON: CT abdomen pelvis June 10, 2024 TECHNIQUE: Enhanced CT of the chest, abdomen, and pelvis was performed per protocol. Multiplanar reconstructions were provided. Dose reduction techniques were utilized for this exam including automated exposure control, adjustmen ts to mA and/or kV according to patient's size, and the use of iterative reconstruction techniques. FINDINGS: CHEST: HEART: Enlarged. Multivessel coronary arterial calcifications. No pericardial effusion or thickening. AORTA: Scattered atherosclerosis throughout the thoracic aorta without aneurysmal dilatation. ADENOPATHY: No pathologic intrathoracic or axillary adenopathy. LUNGS: Sub-6 mm noncalcified nodules at the bilateral lung apices, largest measuring up to 4 mm on th e right. No focal consolidation. Small right pleural effusion with adjacent passive atelectasis. No pneumothorax. ABDOMEN / PELVIS: LIVER: Nodular hepatic contour compatible with cirrhosis. No focal lesions are seen. SPLEEN: Mildly enlarged. PANCREAS: 2.2 cm cystic lesion arising from the pancreatic head. No peripancreatic abnormality. ADRENALS: Nonspecific thickening of the left adrenal gland. Right adrenal gland is unremarkable. KIDNEYS: Multiple nonobstructive left-sided intrarenal calculi, largest measuring up to 7 mm. Simple bilateral renal cysts. No follow-up imaging recommended. Subtle areas of cortical hypoenhancement involving the kidneys bilaterally. Mild fullness of the left renal collecting system. GALLBLADDER: Surgically absent. VESSELS: Scattered atherosclerotic plaque within the abdominal aorta and iliac vessels without aneury smal dilatation. BOWEL: Postsurgical changes involving small bowel within the right lower quadrant. Left lower quadran t ostomy with small fat-containing parastomal hernia. Mild diffuse gastric wall thickening, possibly accentuated by underdistention. No bowel obstruction. APPENDIX: Normal. FLUID: No free fluid or abnormal fluid collection. ADENOPATHY: No pathologic adenopathy. BLADDER: Decompressed around a Thomas catheter bulb. Urinary bladder with thickening. PELVIS: Uterus is surgically absent. BONES: No acute bony abnormality. Multilevel degenerative changes throughout the spine with grade 1 d egenerative anterolisthesis of L4 on L5.. Degenerative changes of the hips. Decreased osseous mineralization. SOFT TISSUES: Decubitus ulcers overlying the bilateral ischial tuberosities, more prominent on the ri ght measuring up to 3 cm and 2 cm in depth. Small bilateral fat-containing inguinal hernias. IMPRESSION: 1. Urinary bladder wall thickening with subtle areas of cortical hypoenhancement involving the kidn eys bilaterally, suspicious for cystitis and pyelonephritis. Recommend correlation with urinalysis. 2. Cardiomegaly with small right pleural effusion. 3. Cirrhosis with splenomegaly. 4. Equivocal findings for gastritis. 5. 2.2 cm cystic lesion arising from the pancreatic head. Consider further evaluation with nonemerg ent outpatient MRI pancreatic mass protocol. 6. Nonobstructive left-sided nephrolithiasis. 7. Decubitus ulcers overlying the bilateral ischial tuberosities. 8. Sub-6 mm noncalcified nodules at the lung apices. Consider 12 month follow-up chest CT only if p atient is considered high risk. Electronically signed by: Shane Sprague DO 11/28/2024 12:54 AM CDT NR Due to temporary technical issues with the PACS/Isomark reporting system, reports are being aamir d by the in-house radiologist without review as a courtesy to ensure prompt reporting the interpreting radiologist is fully responsible for the content of the report. Transcribed Date/Time: 11/28/2024 1:30 AM
[2024-11-28] MEDS ORDERED: FENTANYL CITR 100 MCG/2 ML ONE (01:42)
--- NOTE | 2024-11-28 02:23 | P.HP ---
Certification for Inpatient Patient admitted to: Inpatient With expected LOS: >2 Midnights Practitioner: I am a practitioner with admitting privileges, knowledge of patient current condition, hospital course, and medical plan of care. Services: Services provided to patient in accordance with Admission requirements found in Title 42 Section 412.3 of the Code of Federal Regulations Patient History Date of Service: 11/28/24 Reason for admission: Cystitis, pyelonephritis, decubitus ulcer buttock, and HETAL. History of Present Illness: Patient is an 89-year-old female who is a current resident at the [facility], with multiple past medical history including essential hypertension, TIA,stroke/hemiplegia, hypothyroidism, neuropathy, UTIs, polyneuropathy, myocardial infarction, urogenital implant, urinary retention, with chronic indwelling Thomas catheter, brought to the ER today due to the patient having slurred speech, and complaining of severe pain bilateral lower extremities with no presenting sign of cellulitis. Patient workup in the ER CT abdomen and pelvis impression of cystitis and pyelonephritis. Patient has a stage IV decubitus ulcer on her buttock. Patient appears having residual deficits from her previous stroke, able to communicate but at times not clear to understand what patient intends to say, also appears forgetful at times, contracture left arm, appears malnourished. Denies of any chest pain or shortness of breath at this time. Denies of any headaches, nausea, or vomiting. Patient has a left sided colostomy. Course in ER. (1) CT head without intravenous contrast. Impression: Chronic appearing findings, nonacute. (2) CT abdomen and pelvis. Impression: (a) urinary bladder wall thickening with subtle areas of cortical hypoenhancement involving the kidneys bilaterally suspicious for cystitis and pyelonephritis. Recommend correlation with urinalysis. (b) cardiomegaly with small right pleural effusion. (c) cirrhosis with splenomegaly. (d) equivocal findings for gastritis. (e) 2.2 cm cystic lesion arising from the pancreatic head. Consider further evaluation with nonemergent outpatient MRI pancreatic mass protocol. (f) d ecubitus ulcers overlying the bilateral ischial tuberosities. (g) sub-6 mm noncalcified nodules at the lung apices. Consider 12-month follow-up chest CT only if patient is considered high risk. Allergies No Known Allergies Allergy (Verified 02/19/24 23:16) Home Medications: Amlodipine [Norvasc*] 5 mg PO BID tab 03/02/24 Apixaban [Eliquis *] 2.5 mg PO BID 03/02/24 Ascorbic Acid [Vitamin C*] 1,000 mg PO DAILY 03/02/24 Cholecalciferol (Vitamin D3) [Vitamin D 5,000 IU Cap*] 5,000 unit PO DAILY cap 03/02/24 Duloxetine [Cymbalta *] 20 mg PO BID cap 03/02/24 Nystatin Powder [Mycostatin (Powder)*] 1 appl TOP DAILY PRN bottle 03/02/24 Sennosides [Senna Lax] 8.6 mg PO DAILY #30 03/02/24 Lactose-Reduced Food [Ensure Clear] 296 ml PO BID #60 bottle 05/01/24 Clotrim/Betameth Cream [Lotrisone Cream*] 1 VAG 08/26/24 Gabapentin 300 mg PO 08/26/24 Levothyroxine Sodium [Levoxyl] 50 mcg PO DAILY 08/26/24 Zinc Sulfate [Zinc Sulfate*] 220 mg PO DAILY 08/26/24 Ensure Clear 296 ml PO BID can 09/01/24 Robles [Robles*] 1 pkt PO BID 09/01/24 Medihoney [Medihoney Woundcare Gel*] 1 appl TOP DAILY tube 09/01/24 Nitrofuran Macro [Macrobid*] 100 mg PO BIDWM cap 09/01/24 Potassium Chloride 10 meq PO DAILY #30 cap 09/01/24 - Past Medical/Surgical History Diabetic: Yes -: HTN -: Stroke -: Hypothyroidism. -: Neuropathy -: UTI -: CVA. -: Polyneuropathy. -: TUMOR REMOVAL NECK -: HYSTERECTOMY -: TUMOR REMOVAL OVARY -: LAMINECTOMY - Family History Mother -: Heart disease, Hypertension, Diabetes Father -: Heart disease Brother -: Cancer - Social History Smoking Status: Former smoker Alcohol use: No CD- Drugs: No Caffeine use: Yes Place of Residence: Longterm Review of Systems is unable to be obtained (Unable to fully obtain at this time due to patient mentation.) Musculoskeletal: Leg Pain, Foot Pain (Patient complaining of pain bilateral lower extremities.) Physical Examination - Physical Exam General: Alert, In no apparent distress, Oriented x2 (Patient is able to answer some questions but very forgetful at times.), Cooperative HEENT: Atraumatic, Normocephalic, PERRLA, Mucous membr. moist/pink, Other, Sclerae nonicteric Neck: Supple, 2+ carotid pulse no bruit, JVD not distended, No Thyromegaly, Without JVD or thyroid abnormality Respiratory: Clear to auscultation bilaterally, Normal air movement Cardiovascular: No edema, Regular rate/rhythm, Normal S1 S2, No gallops, No rubs, No murmurs Capillary refill: <2 Seconds Gastrointestinal: Normal bowel sounds, Soft and benign, Non-distended, W/out hepatomegaly, No ascites, No tenderness, No masses Musculoskeletal: No swelling, No warmth, Contractures (Left hand ), Tenderness (Complaint of severe pain bilateral lower extremities.) Integumentary: No cyanosis, Other (Stage IV decubitus ulcer buttock, left colostomy.) Neurological: Normal speech, Other (Patient does not ambulate. Unable to fully assess at this time due to patient AMS) Urinary: Thomas catheter, Other (Complaint of urinary urgency and burning) - Studies Laboratory Data (last 24 hrs) 11/27/24 11/27/24 11/27/24 22:00 22:00 22:00 WBC 4.70 Hgb 11.9 L Hct 34.4 L Plt Count 114 L PT 19.7 H INR 1.77 Sodium 139 Potassium 4.1 BUN 41 H Creatinine 0.86 Glucose 113 H Magnesium 2.0 Total Bilirubin 0.3 AST 20 ALT 19 Alkaline Phosphatase 131 H Female Exam - Breasts Breasts: Normal configuration, Normal contours, Symmetrical Assessment and Plan - Plan Patient admitted to inpatient with diagnosis of cystitis and pyelonephritis, decubitus ulcer buttocks, and HETAL. (1)Cystitis, pyelonephritis, decubitus ulcer buttocks, and HETAL. --Meropenem 500 mg IV every 8 hours. Order for broad-spectrum antibiotics, patient has chronic indwelling Thomas catheter with multiple UTIs. -Consult wound care team. -Order wound culture decubitus ulcer. -Vancomycin 1 g IV daily. -Order for decubitus ulcer treatment, to clean patient decubitus ulcer with NS, apply wet-to-dry Betadine solution, cover 4 x 4, secure with tape. (2)Pain bilateral lower extremities. 1 of patient complained prior to transfer to ER was severe pain bilateral lower extremities. -Order bilateral lower extremities venous ultrasound. -Order bilateral arterial lower extremities ultrasound. (3)Patient home medications to be resumed after reconciled. Discharge Plan: Longterm Plan to discharge in: Greater than 2 days - Advance Directives Does patient have a Living Will: No Does patient have a Durable POA for Healthcare: No - Code Status/Comfort Care Code Status Assessed: No (Unable to obtain at this time ) Code Status: Full Code Critical Care: No Time Spent Managing Pts Care (In Minutes): 55
[2024-11-28 03:54] VITALS: O2SAT 100
[2024-11-28] MEDS: NACHLORIDE 0.45% 1,000 ML IV SCH (04:05)
[2024-11-28] MEDS: VANCOMYCIN 1 GM in NA CHLORIDE 0.9% 250 ML IVPB SCH (06:40)
[2024-11-28] MEDS ORDERED: Meropenem 500 MG in NA CHLORIDE 0.9% 100 ML IV SCH (09:00)
[2024-11-28] MEDS: APIXABAN 2.5 MG TABLET PO SCH (09:20)
[2024-11-28] MEDS: Meropenem 500 MG in NA CHLORIDE 0.9% 100 ML IV SCH (09:20)
[2024-11-28] MEDS: HYDROCODONE/APAP 5/325 MG TAB PO PRN (09:25)
[2024-11-28] MEDS: DULOXETINE 20 MG CAP PO SCH (20:12)
[2024-11-28] MEDS: AMLODIPINE 5 MG TAB PO SCH (20:12)
[2024-11-28] MEDS: GABAPENTIN 300 MG CAP PO SCH (20:12)
[2024-11-28] MEDS ORDERED: APIXABAN 2.5 MG TABLET PO SCH (21:00)
[2024-11-29] MEDS: LEVOTHYROXINE SOD 0.05 MG TABLET PO SCH (05:51)
--- NOTE | 2024-11-29 07:15 | RAD REPORT ---
EXAMINATION: US LOWER EXTREMITY VENOUS DOPPLER BILATERAL CLINICAL INDICATION: Female, 89 years old.Pain bilateral lower exts TECHNIQUE: Complete bilateral duplex sonography of the lower extremity veins was performed. The exami nation included compression for vein patency, color Doppler imaging and flow augmentation in response to distal compression of the distal external iliac, common femoral, femoral, popliteal, ashley macario, tibial and great saphenous veins. [id number]. COMPARISON: No prior exams FINDINGS: Duplex sonography imaging demonstrates all deep veins examined to be fully compressible with spontane ous, phasic and augmented flow bilaterally. IMPRESSION: No evidence of deep venous thrombosis seen in either lower extremity.
[2024-11-29 07:20] LABS: Absolute Lymphocytes (CBC) 0.9 K/uL (0.7-4.9); Hematocrit 32.7 % (36.0-45.0); Hemoglobin 11.3 g/dL (12.0-15.0); MCH 31.4 pg (27.0-35.0); MCHC 34.5 g/dL (32.0-36.0); MCV 90.9 fL (80-100); MPV 9.0 fL (7.6-11.3); Nucleated RBC Absolute Count 0.0 (0-0); Nucleated Red Blood Cells % 0.0 % (0-0); RBC Red Blood Cell Count 3.59 M/uL (3.86-4.86); White Blood Count 4.90 thou/uL (4.3-10.9)
--- NOTE | 2024-11-29 07:23 | RAD REPORT ---
EXAM: Lower Extremity Arterial Bilat HISTORY: pain bilateral lower exts COMPARISON: None TECHNIQUE: Multiplanar grayscale and color Doppler images were obtained and a bilateral lower extrem ity arterial ultrasound. Spectral analysis of the Doppler waveforms were performed. FINDINGS: Right lower extremity: Common femoral artery: Biphasic Superficial femoral artery: Biphasic Popliteal artery: Biphasic Posterior tibial artery: Biphasic Dorsalis pedis artery: Biphasic Left lower extremity: Common femoral artery: Biphasic Superficial femoral artery: Biphasic Popliteal artery: Biphasic Posterior tibial artery: Biphasic Dorsalis pedis artery: Biphasic IMPRESSION: No significant arterial abnormality of the extremities.
[2024-11-29 08:05] LABS: ALT/SGPT 17.0 U/L (13-56); Albumin 2.9 g/dL (3.4-5.0); Albumin/Globulin Ratio 0.8 (1.1-1.8); Alkaline Phosphatase 110.0 U/L (45-117); Anion Gap 5.4 mEq/L (5.0-15.0); BUN Blood Urea Nitrogen 28.0 mg/dL (7-18); Globulin 3.7 g/dL (2.3-3.5); Glucose Level 118.0 mg/dL (74-106)
[2024-11-29 08:08] LABS: AST/SGOT 19.0 U/L (15-37); Magnesium 1.9 mg/dL (1.6-2.4); Potassium 4.4 mEq/L (3.5-5.1)
--- NOTE | 2024-11-29 10:36 | P.PN ---
Subjective Date of Service: 11/29/24 Chief Complaint: Cystitis, pyelonephritis, decubitus ulcer buttock, and HETAL. Subjective: Improving (Patient is improving doing better her pain has improved) Review of Systems Unremarkable Physical Examination - Vital Signs Temperature: 97.6 F Blood Pressure: 136/61 Pulse: 53 Respirations: 16 Pulse Ox (%): 95 - Physical Exam General: Alert, In no apparent distress, Oriented x3 Cardiovascular: No edema Gastrointestinal: Normal bowel sounds, Soft and benign Assessment And Plan - Current Problems (Diagnosis) (1) Acute cystitis Current Visit: No Status: Acute Plan: Patient is 89 years of age with a history of Thomas catheter is status post c olostomy admitted with a urinary tract infection possibly underlying pyelonephritis she is feeling better continue with antibiotics cultures are pending complaining of problems with her arms she is patient has multiple medical problems including spinal stenosis appears to be chronic deformity of his upper extremities labs reviewed white count is normal possible discharge tomorrow pending urine cultures (2) Decubitus ulcer Current Visit: Yes Status: Acute Plan: Patient has a chronic decubitus ulcer on the left buttock does not look to be infected Discharge Plan: Home Plan to discharge in: 24 Hours
[2024-11-29] MEDS ORDERED: MELATONIN 3 MG TABLET PO PRN (22:53)
[2024-11-29] MEDS: DIPHENHYDRAMINE 25 MG TAB/CAP PO PRN (23:06)
[2024-11-30 06:09] LABS: Absolute Lymphocytes (CBC) 1.2 K/uL (0.7-4.9); Hematocrit 29.9 % (36.0-45.0); Hemoglobin 10.6 g/dL (12.0-15.0); MCH 31.7 pg (27.0-35.0); MCHC 35.4 g/dL (32.0-36.0); MCV 89.5 fL (80-100); MPV 8.8 fL (7.6-11.3); Nucleated RBC Absolute Count 0.0 (0-0); Nucleated Red Blood Cells % 0.1 % (0-0); RBC Red Blood Cell Count 3.34 M/uL (3.86-4.86); White Blood Count 3.80 thou/uL (4.3-10.9)
[2024-11-30] MEDS: MORPHINE 2 MG/ML SYR IV ONE (06:13)
[2024-11-30] MEDS: ONDANSETRON 4 MG/2 ML VIAL IV PRN (06:14)
[2024-11-30 06:27] LABS: ALT/SGPT 19.0 U/L (13-56); AST/SGOT 13.0 U/L (15-37); Albumin 2.8 g/dL (3.4-5.0); Albumin/Globulin Ratio 0.8 (1.1-1.8); Alkaline Phosphatase 111.0 U/L (45-117); Anion Gap 8.0 mEq/L (5.0-15.0); BUN Blood Urea Nitrogen 20.0 mg/dL (7-18); Globulin 3.7 g/dL (2.3-3.5); Glucose Level 104.0 mg/dL (74-106); Magnesium 1.6 mg/dL (1.6-2.4); Potassium 4.0 mEq/L (3.5-5.1)
--- NOTE | 2024-11-30 13:48 | P.PN ---
Date of Service: 11/30/24 Subjective: No acute events overnight. She denies fevers and chills Review of Systems Unremarkable Physical Examination - Vital Signs Temperature: 97.6 F Blood Pressure: 136/61 Pulse: 53 Respirations: 16 Pulse Ox (%): 95 - Physical Exam General: Alert, In no apparent distress, Oriented x3 Cardiovascular: No edema Gastrointestinal: Normal bowel sounds, Soft and benign Assessment And Plan - Current Problems (Diagnosis) (1) Acute cystitis Current Visit: No Status: Acute Plan: Patient is 89 years of age with a history of Thomas catheter is status post colostomy admitted with a urinary tract infection possibly underlying pyelonephritis she is feeling better continue with antibiotics cultures are pending complaining of problems with her arms she is patient has multiple medical problems including spinal stenosis appears to be chronic deformity of his upper extremities labs reviewed white count is normal possible discharge tomorrow pending urine cultures (2) Decubitus ulcer Current Visit: Yes Status: Acute Plan: Patient has a chronic decubitus ulcer on the left buttock does not look to be infected 11/30 - Abnormal UA. Urine culture pending. continue Merrem - Santyl for ulcer. Wound care clinic consult - Resume home blood pressure medication - Continue Eliquis Discharge Plan: Long-term resident at [facility] Plan to discharge in: 24 Hours
[2024-11-30] MEDS: POTASS/SODIUM PHOSPHATE 1 PKT POWD.PACK PO SCH (20:42)
[2024-11-30] MEDS: MAGNESIUM SULFATE 1 gm IVPB 1 GM/100 ML BAG IV ONE (20:44)
[2024-11-30] MEDS: POTASS/SODIUM PHOSPHATE 1 PKT POWD.PACK ONE (23:20)
[2024-12-01 07:42] LABS: Absolute Lymphocytes (CBC) 1.0 K/uL (0.7-4.9); Hematocrit 31.8 % (36.0-45.0); Hemoglobin 11.1 g/dL (12.0-15.0); MCH 31.2 pg (27.0-35.0); MCHC 34.7 g/dL (32.0-36.0); MCV 89.8 fL (80-100); MPV 8.7 fL (7.6-11.3); Nucleated RBC Absolute Count 0.0 (0-0); Nucleated Red Blood Cells % 0.0 % (0-0); RBC Red Blood Cell Count 3.55 M/uL (3.86-4.86); White Blood Count 5.20 thou/uL (4.3-10.9)
[2024-12-01 08:02] LABS: ALT/SGPT 22.0 U/L (13-56); AST/SGOT 25.0 U/L (15-37); Albumin 2.9 g/dL (3.4-5.0); Albumin/Globulin Ratio 0.8 (1.1-1.8); Alkaline Phosphatase 124.0 U/L (45-117); Anion Gap 8.1 mEq/L (5.0-15.0); BUN Blood Urea Nitrogen 17.0 mg/dL (7-18); Globulin 3.8 g/dL (2.3-3.5); Glucose Level 112.0 mg/dL (74-106); Magnesium 1.9 mg/dL (1.6-2.4); Potassium 4.1 mEq/L (3.5-5.1)
[2024-12-01] MEDS: COLLAGENASE 30 GM OINTMENT TOP SCH (09:03)
--- NOTE | 2024-12-01 14:33 | P.PN ---
Subjective Date of Service: 12/01/24 Chief Complaint: Cystitis, pyelonephritis, decubitus ulcer buttock, and HETAL. Subjective: No chest pain or shortness of breath. No nausea or vomiting. No abdominal pain. No obvious bleeding. Looks comfortable in the bed. Objective: General appearance: Alert and comfortable CVS: Normal S1 and S2 Lungs: Clear to auscultation bilaterally Abdomen: Soft, bowel sounds present, no tenderness Extremities: No lower extremity edema Physical Examination - Vital Signs Temperature: 97.9 F Blood Pressure: 120/61 Pulse: 100 Respirations: 16 Pulse Ox (%): 93 Assessment And Plan - Plan (1) Acute cystitis Current Visit: No Status: Acute Plan: Patient is 89 years of age with chronic catheter is status post colostomy admitted with a urinary tract infection possibly underlying pyelonephritis she is feeling better continue with antibiotics -Cultures polymicrobial so final identification was not done, will repeat urinalysis and urine culture (2) Decubitus ulcer Current Visit: Yes Status: Acute Plan: Patient has a chronic decubitus ulcer on the left buttock 3. Cirrhosis and splenomegaly on CT scan: Follow-up with PCP 4. Gastritis on CT scan: Started on PPI 5. Pancreatic lesion on CT scan: Follow-up with PCP at the MRI scan. 6. Lung nodules on CT scan: Follow-up with PCP 7. Chronic anemia and thrombocytopenia: Probably related to underlying cirrhosis, follow-up with PCP / GI. Will repeat urinalysis / culture, will request ID consult. Plan discussed with patient and family at bedside, discussed with nursing staff.
[2024-12-01] MEDS ORDERED: SODIUM CHLORIDE 0.9% 10ML INJ IV PRN (14:55)
[2024-12-01] MEDS: PANTOPRAZOLE 40 MG INJ IVP SCH (15:52)
[2024-12-01 16:28] LABS: Sqamous Epithelial <5 /HPF (None Seen); Urine Micro Reflex YN NO BILL MICROSCOPIC; Urine Yeast (Budding) Many /HPF (None Seen)
[2024-12-02 05:53] VITALS: BMI 19.0
[2024-12-02 08:02] LABS: Absolute Lymphocytes (CBC) 1.1 K/uL (0.7-4.9); Hematocrit 32.7 % (36.0-45.0); Hemoglobin 11.4 g/dL (12.0-15.0); MCH 31.3 pg (27.0-35.0); MCHC 34.7 g/dL (32.0-36.0); MCV 90.2 fL (80-100); MPV 9.0 fL (7.6-11.3); Nucleated RBC Absolute Count 0.0 (0-0); Nucleated Red Blood Cells % 0.1 % (0-0); RBC Red Blood Cell Count 3.63 M/uL (3.86-4.86); White Blood Count 4.30 thou/uL (4.3-10.9)
[2024-12-02 08:03] LABS: Anion Gap 8.0 mEq/L (5.0-15.0); BUN Blood Urea Nitrogen 18.0 mg/dL (7-18); Glucose Level 121.0 mg/dL (74-106); Potassium 4.0 mEq/L (3.5-5.1)
[2024-12-03 09:18] LABS: Absolute Lymphocytes (CBC) 1.4 K/uL (0.7-4.9); Hematocrit 33.0 % (36.0-45.0); Hemoglobin 11.4 g/dL (12.0-15.0); MCH 31.1 pg (27.0-35.0); MCHC 34.6 g/dL (32.0-36.0); MCV 90.0 fL (80-100); MPV 8.4 fL (7.6-11.3); Nucleated RBC Absolute Count 0.0 (0-0); Nucleated Red Blood Cells % 0.0 % (0-0); RBC Red Blood Cell Count 3.66 M/uL (3.86-4.86); White Blood Count 5.20 thou/uL (4.3-10.9)
[2024-12-03 09:39] LABS: Anion Gap 9.2 mEq/L (5.0-15.0); BUN Blood Urea Nitrogen 20.0 mg/dL (7-18); Glucose Level 135.0 mg/dL (74-106); Potassium 4.2 mEq/L (3.5-5.1)
[2024-12-03 12:32] VITALS: BP 113/68; TEMP 97.9
== END 2024-12-03 15:50 | DRG 698 ==
LOC: ER 21:25 → 2ND 11-28 02:00
PROVIDERS: ADMIT Hospitalist; ATTEND Hospitalist
PROC: 0T9B70Z Drainage of Bladder with Drainage Device, Via Natural or Artificial Opening (ICD-10-PCS; principal; 2024-12-02)
DX: T83.518A Infection and inflammatory reaction due to other urinary catheter, initial encounter (principal); L89.314 Pressure ulcer of right buttock, stage 4; N10 Acute pyelonephritis; E46 Unspecified protein-calorie malnutrition; Z68.1 Body mass index [BMI] 19.9 or less, adult; N17.9 Acute kidney failure, unspecified; I10 Essential (primary) hypertension; E03.9 Hypothyroidism, unspecified; D69.59 Other secondary thrombocytopenia; K86.89 Other specified diseases of pancreas; K74.60 Unspecified cirrhosis of liver; K29.70 Gastritis, unspecified, without bleeding; E11.42 Type 2 diabetes mellitus with diabetic polyneuropathy; I25.2 Old myocardial infarction; R91.8 Other nonspecific abnormal finding of lung field; Z93.3 Colostomy status; Z86.73 Personal history of transient ischemic attack (TIA), and cerebral infarction without residual deficits; Z79.899 Other long term (current) drug therapy; Z79.01 Long term (current) use of anticoagulants; Z79.890 Hormone replacement therapy; Z87.891 Personal history of nicotine dependence
CPT/HCPCS: 36415; 70450; 71045; 71260; 74177; 80048; 80053; 80076; 81001; 83605; 83690; 83735; 83880; 84100; 84484; 85025; 85610; 87040; 87086; 87088; 93005; 93925; 93970; 96374; 96375; 97110; 97161; 99285; J0696; J2270; J2405; J2470; J3010; J3373; J3475; J3590; J7040; J7050; Q9967